=== PATIENT | male | born 1965 | race Caucasian/White ===

== ENCOUNTER 2018-02-14 14:12 | Emergency (ER) | payer MEDICAID, SELFPAY ==
--- NOTE | 2018-02-14 14:30 | ED.DCSUM_ITS ---
- ER Visit Summary Date of Service: 02/14/18 Chief Complaint: Depressed and suicidal History of Present Illness: The patient is a 52 M history of depression and prior kidney stones. Currently he is on no medications. He does see [facility] and I think at times a counseling center. Today he was talking to his counselor at [facility]. He told him he was more more depressed and was actually contemplating suicide which he has never done in the past. He has no prior attempts and he denies ever being admitted to a psychiatric facility. The counselor on the other end of the phone was concerned enough that he called the police and the patient was brought to the ER and pink slipped. Patient denies any attempt. Physical Examination: Well-appearing middle-age male. Sitting up in bed. He is tearful and depressed but does answer questions. He is not combative. Currently he is not violent or verbally abusive. H EENT exam unremarkable. Neck nontender no lymphadenopathy. Lungs clear to auscultation bilaterally. Heart regular rhythm no murmur. Abdomen he is morbidly obese but soft and nontender. He is moving all 4 extremities. He has 1+ pitting edema both lower extremities and chronic venous stasis ulcerations on his left lower leg. Both upper and lower extremities are neurovascularly intact. With normal motor strength. Dorsi and plantar flexion intact. Bilateral histopathology technician strength. Back nontender. Neurologically he is awake and alert. Test Results: ED mental health screening labs. Emergency Department Course and Treatment: Patient will be evaluated by counseling center. At this time I do have concern and he is truly suicidal and significantly depressed. I suspect that he will be admitted to a psychiatric facility. Treatment Plan: [] Disposition: After counseling center evaluation. Impression: Acute on chronic depression Subtle ideations This note was generated with [employer] dictation software. It may contain incorrect words, spelling, and punctuation that were not noted in review of the chart prior to signing ED Disposition - Plan for ED Patient: Chief Complaint: Suicidal Referrals: NOT,DEFINED [Primary Care Provider] -
[2018-02-14 14:42] VITALS: BP 153/80; PULSE 93; RESP 18; TEMP 36.8; O2SAT 99; BMI 47.8
[2018-02-14 15:04] LABS: Absolute Neutrophil Count 5.1 X10^3/uL (2.0-7.7); Basophil# 0.02 X10^3/uL; Basophil% 0.2 % (0-1); Eosinophil# 0.71 X10^3/uL; Eosinophils% 8.3 % (0-5); Hematocrit 42.6 % (40-54); Hemoglobin 14.4 g/dl (13.0-16.5); Lymphocyte % 22.2 % (19-41); Mean Corp Hgb Conc 33.8 g/gl (32-36); Mean Corpuscular Hgb 31.4 pg (27.0-32.0); Monocyte% 9.3 % (0-10); Neutrophil # 5.11 X10^3/uL (2.7-7.7); Neutrophil % 59.8 % (47-70); Platelet Count 246 K/mm3 (150-450); RBC Distribution Width CV 13.8 % (11.6-14.6); RBC Distribution Width SD 45.3 fl (35.1-43.9); Red Blood Count 4.58 M/mm3 (4.6-6.2); White Blood Count 8.6 K/mm3 (4.4-11.0)
[2018-02-14 15:10] LABS: Anion Gap 9 (5-15); BUN 12 mg/dL (7-18); BUN/Creat Ratio 11.9 RATIO (10-20); Calcium,Total 8.9 mg/dL (8.5-10.1); Chloride 110 mmol/L (98-107); Creatinine, Serum 1.01 mg/dL (0.70-1.30); EST Glomerular Filtration Rate 82 mL/min (>60); Est Glom Filt Rate - Afr Amer 99 mL/min (>60); Estimated Creatinine Clearance 92.84 ml/min; Glucose 99 mg/dL (74-106); Potassium 3.8 mmol/L (3.5-5.1); Sodium Level 143 mmol/L (136-145)
[2018-02-14 15:11] LABS: POSITIVE COUNT NO; POSITIVE DIFFERENTIAL NO; POSITIVE MORPHOLOGY NO
[2018-02-14 15:16] LABS: Amphetamine Urine VISTA NEGATIVE (<1000 ng/mL); Barbiturate Urine VISTA NEGATIVE (< 200 ng/mL); Benzodiazepine Urine VISTA NEGATIVE (< 200 ng/mL); Cocaine Urine VISTA NEGATIVE (< 300 ng/mL); Ecstacy Urine VISTA NEGATIVE (< 500 ng/mL); Methadone Urine VISTA NEGATIVE (< 300 ng/mL); PCP Urine VISTA NEGATIVE (< 25 ng/mL); THC Urine VISTA NEGATIVE (< 50 ng/mL); Vista UDS pH Range 5
--- NOTE | 2018-02-14 16:12 | NURSING ---
JUAN F, CRISIS, AWARE OF PATIENT
--- NOTE | 2018-02-14 17:58 | NURSING ---
CALLED CRISIS, SETH IS AWARE
[2018-02-14 19:04] VITALS: BP 118/56; PULSE 69; RESP 18; O2SAT 96
[2018-02-14 20:29] VITALS: RESP 20
[2018-02-14 22:37] VITALS: BP 126/65; PULSE 80; RESP 18; O2SAT 96
[2018-02-15] VITALS (12 sets, daily range): BP systolic 114–140; BP diastolic 57–60; PULSE 69–75; RESP 16–18; TEMP 36.7; O2SAT 95–98
--- NOTE | 2018-02-15 01:01 | ED.RN ---
patient denied at [facility], [facility] full, [facility] full, [facility] full, at this time patient will be in ER until placement can be found in the morning
== END 2018-02-15 12:36 ==
PROVIDERS: Emergency Provider Emergency Medicine
DX: F32.9 Major depressive disorder, single episode, unspecified (principal); R45.851 Suicidal ideations; I83.029 Varicose veins of left lower extremity with ulcer of unspecified site; L97.929 Non-pressure chronic ulcer of unspecified part of left lower leg with unspecified severity; Z87.442 Personal history of urinary calculi
CPT/HCPCS: 80048; 80307; 80320; 85025; 99285; G0480

== ENCOUNTER 2019-06-24 20:55 | Inpatient (IN) | payer MEDICAID, SELFPAY ==
[2019-06-24 20:56] VITALS: BP 116/65; PULSE 119; RESP 24; TEMP 36.9; O2SAT 98; BMI 43.3
--- NOTE | 2019-06-24 21:50 | EKG12_ITS ---
Test Reason : TACHYCARDIA Blood Pressure : / mmHG Vent. Rate : 127 BPM Atrial Rate : 127 BPM P-R Int : 186 ms QRS Dur : 086 ms QT Int : 314 ms P-R-T Axes : 030 009 033 degrees QTc Int : 456 ms Sinus tachycardia with Premature supraventricular complexes Nonspecific T wave abnormality Abnormal ECG Confirmed by YOLI GUZMAN, JACKIE ([id number]), newspaper or periodical editor FERNANDO JARAMILLO ([id number]) on 06/26/2019 2:14:28 PM Referred By: Blu Mayer Confirmed By:JACKIE KENT MD
--- NOTE | 2019-06-24 21:50 | RAD_ITS ---
STUDY: X-RAY CHEST REASON FOR EXAM: Male, 53 years old. COUGH TECHNIQUE: Single AP portable view of the chest. COMPARISON: None. FINDINGS: There are monitoring devices. The lungs are clear and expanded. There is no demonstrated pleural abnormality. Normal size heart. Normal mediastinum and amalia. Normal visualized pulmonary arteries. Normal visualized aortic arch and descending thoracic aorta. There are diffuse degenerative changes of the visualized thoracic spine. Normal visualized ribs, clavicles, and shoulders. There is no demonstrated abnormality of the visualized soft tissue structures of the upper abdomen. RAD/Chest 1 View (Portable) IMPRESSION: Degenerative changes, as described above. No demonstrated acute cardiopulmonary process. Electronically Signed: Giovanni Mcbride MD at 22:18 EST , Service support ,
--- NOTE | 2019-06-24 21:52 | ED.VIS.GEN ---
History of Present Illness Chief Complaint: Cellulitis Informant: Patient Onset: Days Context: Gradual Onset Narrative: Patient is a 53-year-old male with history of lymphedema and depression presenting from home after a fall out of chair with worsening weakness. Patient states he slipped out of his chair and on his buttocks. Patient could not get up and called his friend for help. EMS was then called. Patient also reports he has worsening redness and pain of his bilateral lower legs for the past few days to week. He denies any fever. Patient thinks he does have a history of cellulitis but he is a poor historian. Patient, as he is not been sleeping well. He denies any other complaints at this time. Past Medical History - Allergies and Home Meds Allergies/Adverse Reactions: Allergies No Known Allergies Allergy (Verified 06/24/19 20:55) Past Medical History: - - Depression, lymphedema Surgical History: appendectomy Lives: Alone Smoking Status: Never smoker - Family History Maternal Family History: Reports: Cancer - Lung Paternal Family History: Reports: Cancer - Lung Review of Systems General: Reports: Malaise. Denies: Chills, Fever, Sweats Eyes: Denies: Visual changes - bilaterally, Diplopia ENT: Denies: Rhinorrhea, Sore throat Cardiovascular: Denies: Chest pain, Palpitations Respiratory: Denies: Dyspnea, Cough, Dyspnea on exertion Gastrointestinal: Denies: Abdominal pain, Nausea, Vomiting, Diarrhea, Melena, Hematochezia Genitourinary: Denies: Dysuria, Hematuria, Frequency Musculoskeletal: Denies: Back pain, Extremity Pain Skin: Reports: Rash - Redness and swelling of bilateral lower legs. Denies: Wounds Neurological: Reports: Weakness - Generalized. Denies: Headache, Numbness Physical Exam Vital Signs/Narrative: Vital Signs Temp Pulse Resp BP Pulse Ox 06/24/19 20:56 98.4 F 119 H 24 H 116/65 98 Inital Vital Signs reviewed: Yes General: Well nourished, Well developed, Obese, No Acute Distress Head: Normocephalic, Atraumatic Eyes: Perrl, EOMI ENT: Moist mucous membranes, No rhinorrhea, TM's clear, - - Patient is dried blood on the outside of his nose with no obvious source. Neck: Supple, Nontender Cardiovascular: Regular rate, Regular rhythm, No murmurs Respiratory: No distress, CTA bilaterally, Chest nontender Abdomen: Soft, Nontender, Nondistended, Normal bowel sounds Back: Nontender, Normal Inspection Extremities: Tenderness, Edema, - - Diffuse tenderness of bilateral lower legs circumferentially with nonpitting edema to the knees. Negative for: Calf Tenderness Skin: Rash - Chronic skin changes of the lower extremities consistent with venous stasis however patient does have erythema, warmth and open sores on his bilateral legs, right is greater than the left Neurological: Alert, Oriented x3, Cranial nerves II-XII grossly intact, Normal Strength, Normal Sensation Psychological: Normal affect, Normal Mood, - - Poor eye contact during exam Diagnostic/Tx/Re-eval Chest X-Ray - ED: 1 View, Read by ED Physician, Read by Radiologist, No Acute Disease Clinical Impression(s) from Imaging Studies Chest X-Ray 06/24/19 21:50 IMPRESSION: Degenerative changes, as described above. No demonstrated acute cardiopulmonary process. Electronically Signed: Giovanni Mcbride MD at 22:18 EST , Service support , Laboratory Data 06/24/19 06/24/19 06/24/19 21:15 21:15 21:15 WBC 11.6 H RBC 4.06 L Hgb 11.5 L Hct 35.3 L MCV 86.9 MCH 28.3 MCHC 32.6 RDW Std Deviation 49.1 H RDW Coeff of Tye 15.7 H Plt Count 364 MPV 8.9 Immature Gran % (Auto) 1.000 H Neut % (Auto) 82.5 H Lymph % (Auto) 10.0 L Clinch % (Auto) 6.0 Eos % (Auto) 0.2 Baso % (Auto) 0.3 Absolute Neuts (auto) 9.5 H Absolute Lymphs (auto) 1.16 Nucleated RBC % 0 PT 18.1 H INR 1.5 APTT 32.9 Sodium 133 L Potassium 3.3 L Chloride 100 Carbon Dioxide 24.0 Anion Gap 9 BUN 14 Creatinine 1.43 H Estim Creat Clear Calc 68.66 Est GFR (MDRD) Af Amer 66 Est GFR (MDRD) Non-Af 55 L BUN/Creatinine Ratio 9.8 L Glucose 115 H Lactic Acid Calcium 7.9 L Total Bilirubin 0.70 AST 103 H ALT 42 Alkaline Phosphatase 72 Total Creatine Kinase 2370 H Total Protein 7.6 Albumin 2.1 L Globulin 5.5 H Albumin/Globulin Ratio 0.4 L 06/24/19 21:15 WBC RBC Hgb Hct MCV MCH MCHC RDW Std Deviation RDW Coeff of Tye Plt Count MPV Immature Gran % (Auto) Neut % (Auto) Lymph % (Auto) Clinch % (Auto) Eos % (Auto) Baso % (Auto) Absolute Neuts (auto) Absolute Lymphs (auto) Nucleated RBC % PT INR APTT Sodium Potassium Chloride Carbon Dioxide Anion Gap BUN Creatinine Estim Creat Clear Calc Est GFR (MDRD) Af Amer Est GFR (MDRD) Non-Af BUN/Creatinine Ratio Glucose Lactic Acid 3.2 H* Calcium Total Bilirubin AST ALT Alkaline Phosphatase Total Creatine Kinase Total Protein Albumin Globulin Albumin/Globulin Ratio - Rhythm Strip Rhythm Strip: Sinus Tach - 127 Rate: 127 Ectopy: None - EKG Initial EKG Interpretation: Sinus Tachycardia, - - Sinus tachycardia at a rate of 127 Normal TN interval Normal QRS QTc [address] segments Follow-up EKG Interpretation: Sinus Tachycardia, - - Sinus tachycardia with PVC Normal intervals Normal axis Normal ST segments Prior: Unchanged - Medical Decision Making Patient is evaluated for difficulty walking after he fell out of his chair. He was found to have changes on his legs concerning for cellulitis. Patient is tachycardic and tachypneic. He meets criteria for sepsis. I suspect skin infection as a source. Patient did state he was on the ground and could not get up so I did check a CPK. This is significantly elevated. Patient does not have a significant NANDA associated with it. He will require admission for IV fluids as well as IV antibiotics. Patient has a mildly elevated white blood cell count and other labs are relatively unremarkable. He is agreeable this plan for admission. In addition patient likely need PT OT evaluation as well as case management as he lives home alone and I question whether he can take care of himself. He is stable for the general medical floor at time of disposition. Patient is intermittently significantly tachycardic with a heart rate up to 145. He states this is associated with feeling nervous about being in the hospital. We did recheck an EKG which continues to show sinus tachycardia. ED Disposition - Plan for ED Patient: Disposition: Acute Care Hospital [facility] Diagnosis: Cellulitis of both lower extremities, Severe sepsis, Rhabdomyolysis
[2019-06-24 22:00] VITALS: BP 100/55; PULSE 127; RESP 48; TEMP 37.3; O2SAT 99
--- NOTE | 2019-06-24 22:01 | ED.RN ---
NO OLD EKGS IN MUSE
[2019-06-24 22:04] LABS: Absolute Lymphocyte Count 1.16 X10^3/uL (0.83-4.51); Absolute Neutrophil Count 9.5 X10^3/uL (2.0-7.7); Basophil# 0.04 X10^3/uL; Basophil% 0.3 % (0-1); Eosinophil# 0.02 X10^3/uL; Eosinophils% 0.2 % (0-5); Hematocrit 35.3 % (40-54); Hemoglobin 11.5 g/dL (13.0-16.5); Lymphocyte # 1.16 X10^3/ul (4.0); Mean Corp Hgb Conc 32.6 g/dL (32-36); Mean Corpuscular Hgb 28.3 pg (27.0-32.0); Mean Corpuscular Volume 86.9 fL (80-94); Mean Platelet Vol. 8.9 fl (6.2-12.0); Monocyte# 0.69 X10^3/uL; NRBC Flagged by Analyzer 0 % (0-5); Neutrophil # 9.53 X10^3/uL (2.7-7.7); Neutrophil % 82.5 % (47-70); Platelet Count 364 K/mm3 (150-450); RBC Distribution Width CV 15.7 % (11.6-14.6); RBC Distribution Width SD 49.1 fl (35.1-43.9); Red Blood Count 4.06 M/mm3 (4.6-6.2); White Blood Count 11.6 K/mm3 (4.4-11.0)
[2019-06-24] MEDS: 0.9% Normal Saline 1,000 ML 999 ML IV ×2 (22:04→22:57)
[2019-06-24 22:08] LABS: International Normalized Ratio 1.5; Prothrombin Time (Protime)PT. 18.1 SECONDS (11.7-14.9)
[2019-06-24 22:09] LABS: Partial Thromboplast Time 32.9 Seconds (24.1-36.2)
[2019-06-24 22:23] LABS: Lactic Acid 3.2 mmol/L (0.4-1.9)
[2019-06-24 22:32] LABS: ALB/GLOB Ratio 0.4 RATIO (0.9-2.4); AST(SGOT) 103 U/L (15-37); Alanine Aminotransfer ALT/SGPT 42 U/L (16-61); Albumin, Serum 2.1 g/dL (3.2-5.0); Alkaline Phosphatase 72 U/L (45-117); Anion Gap 9 (5-15); BUN 14 mg/dL (7-18); BUN/Creat Ratio 9.8 RATIO (10-20); CPK Total, Creatine Kinase 2370 U/L (39-308); Calcium,Total 7.9 mg/dL (8.5-10.1); Chloride 100 mmol/L (98-107); Creatinine, Serum 1.43 mg/dL (0.70-1.30); EST Glomerular Filtration Rate 55 mL/min (>60); Est Glom Filt Rate - Afr Amer 66 mL/min (>60); Estimated Creatinine Clearance 68.66 ml/min; Globulin 5.5 g/dL (2.2-4.2); Glucose 115 mg/dL (74-106); Potassium 3.3 mmol/L (3.5-5.1); Protein, Total 7.6 g/dL (6.4-8.2); Sodium Level 133 mmol/L (136-145)
--- NOTE | 2019-06-24 22:46 | HP.PCM_ITS ---
Problem List (1) Cellulitis of both lower extremities Status: Acute (2) Severe sepsis Status: Acute (3) Rhabdomyolysis Status: Acute History of Present Illness Date of Admission: 06/24/19 Chief Complaint: fall The patient is a 53 year old M with a significant history of morbid obesity; bilateral lymphedema; depression and anxiety who presented because he slid out of her chair and fell to the ground. He also reported out about a month ago he has been having cellulitis of bilateral legs and was advised by a friend to come to the hospital but he did not follow through with the advice until now. Emergency department patient had tachycardia; tachypnea and elevated lactic acid. His creatinine was elevated and his CPK was also elevated.. Past Medical History Medical History: Medical History (Last Updated 06/24/19 @ 23:48 by Blu Mayer MD) Morbid obesity E66.01 Allergies No Known Allergies Allergy (Verified 06/24/19 20:55) Home Medications: Ambulatory Orders Medication Instructions Recorded NK 02/14/18 Surgical History: tonsillectomy, - - Kidney stone surgery Lives: Alone Smoking Status: Never smoker Alcohol: None - *Family History Maternal History Items: Cancer - Lung Paternal History Items: Cancer - Lung Review of Systems Constitutional: Denies: Chills, Fever, Weight Change HEENT: Denies: Head Aches, Sinus Congestion, Sinus Drainage Cardiovascular: Denies: Chest Pain, Palpitations Respiratory: Denies: Cough, Shortness of breath at rest, Sputum production Gastrointestinal: Denies: Abdominal Pain, Nausea, Vomiting Genitourinary: Denies: Dysuria Musculoskeletal: Denies: Joint Pain, Joint Tenderness Skin: Reports: Skin Changes - To bilateral lower extremities, - Neurological: Denies: Numbness, Tingling, Focal weakness Psychiatric: Reports: Anxiety, Depression. Denies: Homicidal Ideations, Suicidal Ideations Hematologic/ Lymphatic: Denies: Easy Bruising, Easy Bleeding VTE Information - Inpt Only VTE Present on Admission: No VTE Mechan Device Prophylaxis: None VTE Pharm Prophylaxis ordered?: Yes Patient Problems: Active and Suspected Problems (Last Updated 06/24/19 @ 23:48 by Blu Mayer MD) Cellulitis of both lower extremities (Acute) Severe sepsis (Acute) Rhabdomyolysis (Acute) - Physical Exam Vitals/I&O's: Vital Signs Temp Pulse Resp BP Pulse Ox 99.1 F 127 H 48 H 100/55 L 99 06/24/19 22:00 06/24/19 22:00 06/24/19 22:00 06/24/19 22:00 06/24/19 22:00 Oxygen Delivery Method Room Air Weight: 153.1 kg Body Mass Index (BMI) 43.3 General: Alert, Oriented x3, Cooperative HEENT: Atraumatic, Normocephalic Neck: Supple, Trachea Midline Lungs: Clear to auscultation, Normal air movement, Tachypneic Cardiovascular: Regular rate, Normal S1, Normal S2, No murmurs, Tachycardic Abdomen: Bowel Sounds Present, Soft, Non Tender, Hypoactive Bowel Sounds Extremities: Capillary Refill Less than 3 Seconds, - - Duration of bilateral lower legs. Seepage through bilateral posterior thighs with some greenish discoloration of the skin. Foul-smelling odor of extremities with excoriation extending to bilateral buttocks. Skin: No rashes, No breakdown Musculoskeletal: No Tenderness to Palpation of Joints or Extremities Neurological: Cranial nerves II-XII grossly intact Psych/Mental Status: Flat Affect, Depressed, - - Cried Laboratory Results 06/24/19 21:15: WBC 11.6 H, RBC 4.06 L, Hgb 11.5 L, Hct 35.3 L, MCV 86.9, MCH 28.3, MCHC 32.6, RDW Std Deviation 49.1 H, RDW Coeff of Tye 15.7 H, Plt Count 364, MPV 8.9, Immature Gran % (Auto) 1.000 H, Neut % (Auto) 82.5 H, Lymph % (Auto) 10.0 L, [place] % (Auto) 6.0, Eos % (Auto) 0.2, Baso % (Auto) 0.3, Absolute Neuts (auto) 9.5 H, Absolute Lymphs (auto) 1.16, Nucleated RBC % 0 06/24/19 21:15: PT 18.1 H, INR 1.5, APTT 32.9 06/24/19 21:15: Sodium 133 L, Potassium 3.3 L, Chloride 100, Carbon Dioxide 24.0, Anion Gap 9, BUN 14, Creatinine 1.43 H, Estim Creat Clear Calc 68.66, Est GFR (MDRD) Af Amer 66, Est GFR (MDRD) Non-Af 55 L, BUN/Creatinine Ratio 9.8 L, Glucose 115 H, Calcium 7.9 L, Total Bilirubin 0.70, AST 103 H, ALT 42, Alkaline Phosphatase 72, Total Creatine Kinase 2370 H, Total Protein 7.6, Albumin 2.1 L, Globulin 5.5 H, Albumin/Globulin Ratio 0.4 L 06/24/19 21:15: Lactic Acid 3.2 H* Current Medications Sodium Chloride () 1,000 mls @ 999 mls/hr IV .Q1H1M ONE Stop: 06/24/19 22:50 Last Admin: 06/24/19 22:04 Dose: 999 mls/hr Documented by: Sodium Chloride () 1,000 mls @ 999 mls/hr IV .Q1H1M ONE Stop: 06/24/19 23:39 Vancomycin HCl 2,000 mg/ (Sodium Chloride) 540 mls @ 250 mls/hr IV X1 ONE; Protocol Stop: 06/25/19 00:49 Piperacillin Sod/Tazobactam Sod (Zosyn) 4.5 gm in 100 mls @ 200 mls/hr IV X1 ONE Stop: 06/24/19 23:09 Assessment/Plan All Active Problems (Last Updated 06/24/19 @ 23:48 by Blu Mayer MD) Cellulitis of both lower extremities (Acute) Severe sepsis (Acute) Rhabdomyolysis (Acute) The patient is a 53 year old M with a significant history of morbid obesity; bilateral lymphedema; depression and anxiety who presented because he slid out of her chair and fell to the ground; has bilateral leg redness; excoriation and seepage from his bilateral lower extremities especially from his posterior thighs; and with tachycardia; tachypnea; leukocytosis elevated CPK and elevated lactic acid consistent with severe sepsis secondary to cellulitis and probably myositis with rhabdomyolysis and NANDA. Severe sepsis secondary cellulitis and probable myositis Patient with heart rate as high as in the 140s. Respiratory rate more than 20. Lactic acid more than 2. Trend. Probable source of infection of soft tissues of lower extremities Was started on vancomycin and Zosyn in the emergency department. We will continue patient on vancomycin and cefazolin. Consult infectious disease Received NSS IV bolus in the emergency department. Continue on maintenance IV hydration especially for his rhabdomyolysis. Trend CBC and BMP. Follow blood culture. Rhabdomyolysis On presentation his CPK was 2370. Received IV bolus in emergency department. Continue patient on maintenance IV hydration. Trend CPK. NANDA On presentation his creatinine was 1.43. His creatinine on 02/14/2018 was 1.01. Likely secondary to CPK. IV fluid as above. Avoid nephrotoxins. Trend BMP. Hypokalemia His potassium is 3.3. Replace. Trend BMP. Hypocalcemia Calcium is Albumin is 2.1. Likely from low albumin. Intertrigo Nystatin powder Lymphedema and coccygeal pressure ulcer Wound care consult Calmoseptine cream ordered. DVT prophylaxis Subcutaneous Heparin Code Visit Inpatient E&M: 57727 Init Hosp L3
[2019-06-24 23:00] VITALS: BP 112/67; PULSE 140; RESP 26; TEMP 37.1; O2SAT 98
--- NOTE | 2019-06-24 23:01 | EKG12_ITS ---
Test Reason : REPEAT Blood Pressure : / mmHG Vent. Rate : 119 BPM Atrial Rate : 119 BPM P-R Int : 182 ms QRS Dur : 086 ms QT Int : 328 ms P-R-T Axes : 031 012 035 degrees QTc Int : 461 ms Sinus tachycardia with occasional Premature ventricular complexes Nonspecific T wave abnormality Abnormal ECG Confirmed by MARVIN GUZMAN, DUKE ([id number]), loan expeditor FERNANDO JARAMILLO ([id number]) on 06/25/2019 10:35:13 AM Referred By: Blu Mayer Confirmed By:DUKE WONG MD
[2019-06-24 23:38] VITALS: BMI 49.4
[2019-06-24 23:55] VITALS: BP 100/51; PULSE 112; RESP 20; TEMP 37.5; O2SAT 100
[2019-06-25] VITALS (13 sets, daily range): BP systolic 106–149; BP diastolic 62–83; PULSE 88–123; RESP 20; TEMP 36.6–36.9; O2SAT 94–100; BMI 49.4
[2019-06-25] MEDS: 0.9% Normal Saline 1,000 ML 150 ML IV (01:04)
[2019-06-25 01:06] LABS: Bedside Glucose 117 mg/dL (70-110)
--- NOTE | 2019-06-25 01:13 | PCM.RX.CS ---
Consult Pharmacy has been consulted to manage selected antiobiotic: Vancomycin Type of Consult: New start Suspected Infection: Sepsis Labs: Sodium 133 mmol/L (136-145) L 06/24/19 21:15 Potassium 3.3 mmol/L (3.5-5.1) L 06/24/19 21:15 Chloride 100 mmol/L (98-107) 06/24/19 21:15 Carbon Dioxide 24.0 mmol/L (21.0-32.0) 06/24/19 21:15 Anion Gap 9 (5-15) 06/24/19 21:15 BUN 14 mg/dL (7-18) 06/24/19 21:15 Creatinine 1.43 mg/dL (0.70-1.30) H 06/24/19 21:15 Est GFR (MDRD) Af Amer 66 mL/min (>60) 06/24/19 21:15 Est GFR (MDRD) Non-Af 55 mL/min (>60) L 06/24/19 21:15 BUN/Creatinine Ratio 9.8 RATIO (10-20) L 06/24/19 21:15 Glucose 115 mg/dL (74-106) H 06/24/19 21:15 Weight used for dosin kg Estimated Creatinine Clearance: 94 Goal Trough: 15-20 mcg/mL Pharmacy Plan for Drug Dosing: Pharmacy Service will continue to monitor and adjust dosing as required. Medications Vancomycin HCl 1,250 mg/ (Sodium Chloride) 275 mls @ 167 mls/hr IV Q8H AMBAR Discontinued Medications Vancomycin HCl 2,000 mg/ (Sodium Chloride) 540 mls @ 250 mls/hr IV X1 ONE; Protocol Stop: 06/25/19 00:49 Last Admin: 06/24/19 23:31 Dose: 250 mls/hr Documented by: Follow-Up Labs: Trough Vancomycin Labs to be done on [date and time ordered]: 06/25 @ 2300
[2019-06-25 02:00] LABS: Reflex Lactate? Y
[2019-06-25 02:27] LABS: Absolute Lymphocyte Count 1.36 X10^3/uL (0.83-4.51); Absolute Neutrophil Count 9.5 X10^3/uL (2.0-7.7); Basophil# 0.03 X10^3/uL; Basophil% 0.3 % (0-1); Eosinophil# 0.09 X10^3/uL; Eosinophils% 0.8 % (0-5); Hematocrit 32.7 % (40-54); Hemoglobin 10.5 g/dL (13.0-16.5); Lymphocyte # 1.36 X10^3/ul (4.0); Lymphocyte % 11.6 % (19-41); Mean Corp Hgb Conc 32.1 g/dL (32-36); Mean Corpuscular Hgb 28.2 pg (27.0-32.0); Mean Corpuscular Volume 87.9 fL (80-94); Mean Platelet Vol. 8.7 fl (6.2-12.0); Monocyte# 0.71 X10^3/uL; Monocyte% 6.1 % (0-10); NRBC Flagged by Analyzer 0 % (0-5); Neutrophil # 9.45 X10^3/uL (2.7-7.7); Neutrophil % 80.5 % (47-70); Platelet Count 299 K/mm3 (150-450); RBC Distribution Width SD 50.6 fl (35.1-43.9); Red Blood Count 3.72 M/mm3 (4.6-6.2); White Blood Count 11.7 K/mm3 (4.4-11.0)
[2019-06-25 02:50] LABS: Lactic Acid 1.9 mmol/L (0.4-1.9)
[2019-06-25 03:03] LABS: Anion Gap 9 (5-15); BUN 12 mg/dL (7-18); BUN/Creat Ratio 11.1 RATIO (10-20); CPK Total, Creatine Kinase 2109 U/L (39-308); Calcium,Total 7.2 mg/dL (8.5-10.1); Chloride 106 mmol/L (98-107); Creatinine, Serum 1.08 mg/dL (0.70-1.30); EST Glomerular Filtration Rate 76 mL/min (>60); Est Glom Filt Rate - Afr Amer 91 mL/min (>60); Estimated Creatinine Clearance 85.82 ml/min; Glucose 116 mg/dL (74-106); Potassium 3.1 mmol/L (3.5-5.1); Sodium Level 136 mmol/L (136-145)
[2019-06-25 05:02] LABS: Bacteria 0 SEEN /hpf (None Seen); Mucous, Urine 0 SEEN /hpf (<or=2+); Squamous Epithelial Cells - UA 0 SEEN /hpf (0-5); White Blood Cells 0 SEEN /hpf (0-5)
[2019-06-25 05:31] LABS: Color, Urine Yellow (Yellow); Glucose, Dipstick Normal (Normal); Ketone-Dipstick 5 mg/dl (Negative); Leukocyte Esterase-Dipstick Negative /ul (Negative); Nitrite-Dipstick Negative (Negative); Occult Blood-Urine 50 /ul (Negative); Protein-Dipstick 15 mg/dl (Negative); Specific Gravity, Urine 1.025 (1.002-1.030); Urine Bilirubin Dipstick Negative (Negative); Urine Clarity Sl. Cloudy (Clear); Urine Urobilinogen 1 mg/dl (Normal)
[2019-06-25 05:37] LABS: Red Blood Cells-Urine 0-5 SEEN /hpf (0-5)
[2019-06-25] MEDS: Cefazolin 2 GM in 0.9% Normal Saline 100 ML IV ×3 (06:21→21:36)
[2019-06-25] MEDS: Heparin Injection (Vial) 5,000 UNIT/ML VIAL 5000 UNIT SC ×3 (06:22→21:15)
[2019-06-25 07:05] LABS: Bedside Glucose 118 mg/dL (70-110)
[2019-06-25] MEDS: Nystatin Ointment 1 APPLIC TOPICAL ×2 (08:47→21:15)
[2019-06-25] MEDS: Menthol/Lanolin/Calamine/Znox 113 GM Tube 1 APPLIC TOPICAL ×2 (08:48→21:16)
--- NOTE | 2019-06-25 09:24 | NURSING ---
wound photo: right posterior lower leg
--- NOTE | 2019-06-25 09:26 | NURSING ---
wound photo: left posterior lower leg
--- NOTE | 2019-06-25 09:26 | NURSING ---
wound photo: bilateral posterior thighs and buttocks
--- NOTE | 2019-06-25 11:01 | CON.PCM_ITS ---
Reason for Consult: Bilateral lower extremity cellulitis Consulted by: Dr. Blu Mayer History of Present Illness: The patient is a 53 year old M [] This is a 53-year-old white male with a past medical history of morbid obesity who lives alone and apparently had a traumatic fall that occurred by his chair roughly a month ago. Patient was subsequently admitted earlier this week and was found to have rhabdomyolysis and acute renal injury. Patient denies any fevers or shaking chills does state a trauma to his buttocks with a fall and does have some chronic erythema of his lower extremities. Patient was placed on parenteral antibiotic therapy in the form of vancomycin plus Ancef. I did r eview the photographs taken by the human services care specialist during this admission. Patient denies any gastrointestinal distress. No cardiopulmonary symptoms. Patient has very limited mobility - Medical History Allergies/Adverse Reactions: Allergies No Known Allergies Allergy (Verified 06/24/19 20:55) Home Medications: Ambulatory Orders Medication Instructions Recorded NK 02/14/18 Vital Signs Temp Pulse Resp BP Pulse Ox 98.4 F 114 H 20 H 149/83 H 97 06/25/19 08:00 06/25/19 08:00 06/25/19 08:00 06/25/19 08:00 06/25/19 08:00 Oxygen Delivery Method Room Air Weight: 165.3 kg Body Mass Index (BMI) 49.4 Laboratory Tests Past 24 Hrs 06/24/19 06/24/19 06/24/19 21:15 21:15 21:15 WBC 11.6 H RBC 4.06 L Hgb 11.5 L Hct 35.3 L MCV 86.9 MCH 28.3 MCHC 32.6 RDW Std Deviation 49.1 H RDW Coeff of Tye 15.7 H Plt Count 364 MPV 8.9 Immature Gran % (Auto) 1.000 H Neut % (Auto) 82.5 H Lymph % (Auto) 10.0 L [place] % (Auto) 6.0 Eos % (Auto) 0.2 Baso % (Auto) 0.3 Absolute Neuts (auto) 9.5 H Absolute Lymphs (auto) 1.16 Nucleated RBC % 0 PT 18.1 H INR 1.5 APTT 32.9 Sodium 133 L Potassium 3.3 L Chloride 100 Carbon Dioxide 24.0 Anion Gap 9 BUN 14 Creatinine 1.43 H Estim Creat Clear Calc 68.66 Est GFR (MDRD) Af Amer 66 Est GFR (MDRD) Non-Af 55 L BUN/Creatinine Ratio 9.8 L Glucose 115 H Lactic Acid Calcium 7.9 L Total Bilirubin 0.70 AST 103 H ALT 42 Alkaline Phosphatase 72 Total Creatine Kinase 2370 H Total Protein 7.6 Albumin 2.1 L Globulin 5.5 H Albumin/Globulin Ratio 0.4 L Urine Color Urine Clarity Urine pH Ur Specific [place] Urine Protein Urine Glucose (UA) Urine Ketones Urine Occult Blood Urine Nitrite Urine Bilirubin Urine Urobilinogen Ur Leukocyte Esterase Urine RBC Urine WBC Ur Squamous Epith Cells Urine Bacteria Urine Mucus 06/24/19 06/25/19 06/25/19 21:15 02:15 02:15 WBC 11.7 H RBC 3.72 L Hgb 10.5 L Hct 32.7 L MCV 87.9 MCH 28.2 MCHC 32.1 RDW Std Deviation 50.6 H RDW Coeff of Tye 16.0 H Plt Count 299 MPV 8.7 Immature Gran % (Auto) 0.700 Neut % (Auto) 80.5 H Lymph % (Auto) 11.6 L [place] % (Auto) 6.1 Eos % (Auto) 0.8 Baso % (Auto) 0.3 Absolute Neuts (auto) 9.5 H Absolute Lymphs (auto) 1.36 Nucleated RBC % 0 PT INR APTT Sodium 136 Potassium 3.1 L Chloride 106 Carbon Dioxide 21.0 Anion Gap 9 BUN 12 Creatinine 1.08 Estim Creat Clear Calc 85.82 Est GFR (MDRD) Af Amer 91 Est GFR (MDRD) Non-Af 76 BUN/Creatinine Ratio 11.1 Glucose 116 H Lactic Acid 3.2 H* Calcium 7.2 L Total Bilirubin AST ALT Alkaline Phosphatase Total Creatine Kinase 2109 H Total Protein Albumin Globulin Albumin/Globulin Ratio Urine Color Urine Clarity Urine pH Ur Specific [place] Urine Protein Urine Glucose (UA) Urine Ketones Urine Occult Blood Urine Nitrite Urine Bilirubin Urine Urobilinogen Ur Leukocyte Esterase Urine RBC Urine WBC Ur Squamous Epith Cells Urine Bacteria Urine Mucus 06/25/19 06/25/19 02:15 04:49 WBC RBC Hgb Hct MCV MCH MCHC RDW Std Deviation RDW Coeff of Tye Plt Count MPV Immature Gran % (Auto) Neut % (Auto) Lymph % (Auto) [place] % (Auto) Eos % (Auto) Baso % (Auto) Absolute Neuts (auto) Absolute Lymphs (auto) Nucleated RBC % PT INR APTT Sodium Potassium Chloride Carbon Dioxide Anion Gap BUN Creatinine Estim Creat Clear Calc Est GFR (MDRD) Af Amer Est GFR (MDRD) Non-Af BUN/Creatinine Ratio Glucose Lactic Acid 1.9 Calcium Total Bilirubin AST ALT Alkaline Phosphatase Total Creatine Kinase Total Protein Albumin Globulin Albumin/Globulin Ratio Urine Color Yellow Urine Clarity Sl. Cloudy Urine pH 6.0 Ur Specific [place] 1.025 Urine Protein 15 H Urine Glucose (UA) Normal Urine Ketones 5 H Urine Occult Blood 50 H Urine Nitrite Negative Urine Bilirubin Negative Urine Urobilinogen 1 H Ur Leukocyte Esterase Negative Urine RBC 0-5 SEEN Urine WBC 0 SEEN Ur Squamous Epith Cells 0 SEEN Urine Bacteria 0 SEEN Urine Mucus 0 SEEN - Other Studies Radiology: [] Other Studies: [] Route of nutrition/ use of supplements: [] Nutritional Intake: [] IV Site: [] Beck Catheter: [] morbid obesity patient is alert does not appear toxic lungs are clear heart exam S1-S2 abdomen is obese no focal tenderness lower extremities are bandaged photographs reviewed of the skin in his buttocks area - Assessment/Plan Antibiotics: [] Assessment/Plan: [] Active and Suspected Problems (Last Updated 06/24/19 @ 23:48 by Blu Mayer MD) Cellulitis of both lower extremities (Acute) Severe sepsis (Acute) Rhabdomyolysis (Acute) We will treat with Ancef 2 g IV every 8 hours. We will hold off on parenteral vancomycin.
--- NOTE | 2019-06-25 11:01 | CASEMGMT ---
Social Work Assessment Physician updated this worker that it took 2-3 people to get pt out of bed and physician is recommending SNF. Referral Date: 06/25/2019 Date of Assessment: 06/25/2019 Reason for consult: SNF placement Informant: Personal Status: SW met with pt and introduced self and role at [facility]. Pt is alert and orientated x3. Pt states that he lives alone on a 5th floor apartment with 35 steps to get to apartment. Pt states that he was previously independent with ADLs but doesn't drive. Pt state that he either walks or takes [place] transit for transportation. Pt states that he has no PCP and no pharmacy. Pt also states that he has no family or friends but does have a good neighbor next door that assists when needed. Pt states that he doesn't have a job and he applied for disability and waiting to hear back from disability. Pt denied any DME in the home but states he is working on getting a lift chair. Mental Health: Pt states that he does have depression, denied currently taking any medications. Pt states that he was going to [facility] for counseling but states it has been a long time since he has went to an appointment. Pt states that last year when he was homeless he had suicidal thoughts but denied any current suicidal/homicidal thoughts/plans/ideations. Substance Abuse Hx: Pt denied. SW spoke with pt regarding returning home or going to SNF for short term rehabilitation. Pt states that he is going home at discharge. SW informed pt that physician had some concerns considering it took 2-3 people to get pt up and moving today. Pt states I don't think it is fair that people here see me one time and automatically say I need to go to SNF. Pt states that he is at [facility] to get better and that is what he is going to do. 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 Pt states I am 53 and I am not going to SNF. SW spoke with pt informing him that the plan can be to go home but SNF conversation may have to be discussed again in the event pt is still need 2-3 people to get up and moving. Pt became tearful. SW offered support to pt. SW asked pt if he feels he needs any DME in the home or HHC. Pt states that he would like a raised toilet seat and handrails by his toilet. SW updated pt that handrails are not paid for by insurance so he would need to purchase them himself and install him itself. Pt states understanding, states again that he would like a raised toilet seat. Pt denied the need for HHC. MEY and MINNA CM to continue to follow. If pt is still requiring 2-3 people to assist then pt would probbaly benefit from SNF but at this time pt is not agreeable to SNF and is adamant about returning home. Plan: AMAYA Flowers FISCAL MANAGER, DINING SERVICE INSPECTOR
[2019-06-25 13:36] LABS: Bedside Glucose 122 mg/dL (70-110)
[2019-06-25] MEDS: 0.9% Saline Lock 10 ML Syringe IV ×2 (13:53→21:41)
--- NOTE | 2019-06-25 18:17 | PCM.PROGNOTE ---
Patient Problems: Active and Suspected Problems (Last Updated 06/24/19 @ 23:48 by Blu Mayer MD) Cellulitis of both lower extremities (Acute) Severe sepsis (Acute) Rhabdomyolysis (Acute) Subjective: Was seen and examined today, I talked with wound care about his leg wounds today which are basically excoriated areas on the back of his legs most likely from not getting up out of bed and may be lying in urine. I talked to the patient today about going temporarily to a skilled care facility, at first he told me he knows he needs to do this but then later on in the day when psychologist social talked with him, patient flatly refused to go to a retirement. I went back into talk with him but he refused to make eye contact with me or talk to me other than to whisper a few words. It is obvious that the patient has a psych issue in addition to his self-neglect. - Physical Exam Vitals/I&O's: Vital Signs Temp Pulse Resp BP Pulse Ox 98.3 F 99 20 H 106/67 96 06/25/19 13:57 06/25/19 16:33 06/25/19 13:57 06/25/19 13:57 06/25/19 13:57 Oxygen Delivery Method Room Air Weight: 165.3 kg Body Mass Index (BMI) 49.4 Intake and Output for Last 24 Hours 06/23/19 06/24/19 06/25/19 23:59 23:59 23:59 Intake Total 2099 2955 / 2955 Output Total 450 / 450 Balance 2099 2505 / 2505 General: Alert, Oriented x3, Cooperative, No apparent distress, Well developed HEENT: Atraumatic, PERRLA, EOMI, Normocephalic Oral: Moist Mucosa Neck: Supple, Trachea Midline, Thyroid Normal Size and Texture Lungs: Clear to auscultation, Normal air movement, No rhonchi, No wheeze, No rales Cardiovascular: Regular rate, Regular Rhythm, Normal S1, Normal S2, No murmurs Abdomen: Bowel Sounds Present, Soft, Non Tender, Non-Distended, Obese Extremities: No clubbing, No cyanosis, Capillary Refill Less than 3 Seconds, - - There are excoriated skin areas over the patient's posterior leg areas bilaterally Skin: No rashes, Ulcer/ Wound - There is a breakdown of skin over the patient's posterior leg areas bilaterally Musculoskeletal: No Tenderness to Palpation of Joints or Extremities Neurological: Cranial nerves II-XII grossly intact, Neuro grossly intact, Sensory exam intact to light touch and pain Psych/Mental Status: Flat Affect, - - Patient appears withdrawn and does not make eye contact when I talk with him Laboratory Results 06/24/19 21:15: WBC 11.6 H, RBC 4.06 L, Hgb 11.5 L, Hct 35.3 L, MCV 86.9, MCH 28.3, MCHC 32.6, RDW Std Deviation 49.1 H, RDW Coeff of Tye 15.7 H, Plt Count 364, MPV 8.9, Immature Gran % (Auto) 1.000 H, Neut % (Auto) 82.5 H, Lymph % (Auto) 10.0 L, [place] % (Auto) 6.0, Eos % (Auto) 0.2, Baso % (Auto) 0.3, Absolute Neuts (auto) 9.5 H, Absolute Lymphs (auto) 1.16, Nucleated RBC % 0 06/24/19 21:15: PT 18.1 H, INR 1.5, APTT 32.9 06/24/19 21:15: Sodium 133 L, Potassium 3.3 L, Chloride 100, Carbon Dioxide 24.0, Anion Gap 9, BUN 14, Creatinine 1.43 H, Estim Creat Clear Calc 68.66, Est GFR (MDRD) Af Amer 66, Est GFR (MDRD) Non-Af 55 L, BUN/Creatinine Ratio 9.8 L, Glucose 115 H, Calcium 7.9 L, Total Bilirubin 0.70, AST 103 H, ALT 42, Alkaline Phosphatase 72, Total Creatine Kinase 2370 H, Total Protein 7.6, Albumin 2.1 L, Globulin 5.5 H, Albumin/Globulin Ratio 0.4 L 06/24/19 21:15: Lactic Acid 3.2 H* 06/25/19 00:56: POC Glucose 117 H 06/25/19 02:15: WBC 11.7 H, RBC 3.72 L, Hgb 10.5 L, Hct 32.7 L, MCV 87.9, MCH 28.2, MCHC 32.1, RDW Std Deviation 50.6 H, RDW Coeff of Tye 16.0 H, Plt Count 299, MPV 8.7, Immature Gran % (Auto) 0.700, Neut % (Auto) 80.5 H, Lymph % (Auto) 11.6 L, [place] % (Auto) 6.1, Eos % (Auto) 0.8, Baso % (Auto) 0.3, Absolute Neuts (auto) 9.5 H, Absolute Lymphs (auto) 1.36, Nucleated RBC % 0 06/25/19 02:15: Sodium 136, Potassium 3.1 L, Chloride 106, Carbon Dioxide 21.0, Anion Gap 9, BUN 12, Creatinine 1.08, Estim Creat Clear Calc 85.82, Est GFR (MDRD) Af Amer 91, Est GFR (MDRD) Non-Af 76, BUN/Creatinine Ratio 11.1, Glucose 116 H, Calcium 7.2 L, Total Creatine Kinase 2109 H 06/25/19 02:15: Lactic Acid 1.9 06/25/19 04:49: Urine Color Yellow, Urine Clarity Sl. Cloudy, Urine pH 6.0, Ur Specific [place] 1.025, Urine Protein 15 H, Urine Glucose (UA) Normal, Urine Ketones 5 H, Urine Occult Blood 50 H, Urine Nitrite Negative, Urine Bilirubin Negative, Urine Urobilinogen 1 H, Ur Leukocyte Esterase Negative, Urine RBC 0-5 SEEN, Urine WBC 0 SEEN, Ur Squamous Epith Cells 0 SEEN, Urine Bacteria 0 SEEN, Urine Mucus 0 SEEN 06/25/19 07:00: POC Glucose 118 H 06/25/19 12:39: POC Glucose 122 H Current Medications Acetaminophen (Tylenol) 650 mg PO Q6H PRN PRN PRN Reason: Pain Score 1-10/Temp > 100.7 F Calamine/Phenol (Calmoseptine Ointment) 1 applic TOPICAL BID [facility]; Protocol Last Admin: 06/25/19 08:48 Dose: 1 applic Documented by: Glucagon () 1 mg IM .X1 PRN PRN Reason: Hypoglycemia Heparin Sodium (Porcine) (Heparin Na) 5,000 unit SC Q8 [facility] Last Admin: 06/25/19 13:51 Dose: 5,000 unit Documented by: Cefazolin Sodium 2 gm/ Sodium (Chloride) 110 mls @ 150 mls/hr IV Q8 [facility] Last Infusion: 06/25/19 14:39 Dose: Infused Documented by: Dextrose (Dextrose 10%-Water) 250 mls @ 999 mls/hr IV .Q16M PRN; Protocol PRN Reason: HYPOGLYCEMIA Melatonin (Melatonin) 3 mg PO QHS PRN PRN PRN Reason: INSOMNIA Nutritional Formula (Lactose Free) (Ensure Enlive) 120 ml PO 4X/DAY [facility] Last Admin: 06/25/19 16:04 Dose: 120 ml Documented by: Nystatin (Mycostatin) 1 applic TOPICAL BID [facility]; Protocol Last Admin: 06/25/19 08:47 Dose: 1 applicatio Documented by: Ondansetron HCl (Zofran) 4 mg IV Q8H PRN PRN PRN Reason: NAUSEA/VOMITING Sodium Chloride () 10 - 40 ml IV UD PRN PRN Reason: SALINE FLUSH Last Admin: 06/25/19 13:53 Dose: 10 ml Documented by: Medical Necessity - Tobacco Use Smoking Status: Never smoker Assessment/Plan All Active Problems (Last Updated 06/24/19 @ 23:48 by Blu Mayer MD) Cellulitis of both lower extremities (Acute) Severe sepsis (Acute) Rhabdomyolysis (Acute) # 1 severe sepsis secondary to cellulitis of the legs-infectious diseases saw the patient today and recommended use of Ancef alone, patient's vancomycin was stopped #2 cellulitis of the legs-again patient is to remain on Ancef #3 morbid obesity #4 self-neglect #5 probable personality disorder #6 debility secondary to morbid obesity and psychiatric issues-patient will need placement in a long term facility, it is unknown whether the patient will agree to this. Code Visit Inpatient E&M: 41938 Subs Hosp L2
[2019-06-26 03:54] VITALS: BP 112/67; PULSE 97; RESP 20; TEMP 36.7; O2SAT 93
[2019-06-26 03:59] VITALS: PULSE 95
[2019-06-26] MEDS: Heparin Injection (Vial) 5,000 UNIT/ML VIAL 5000 UNIT SC ×3 (06:46→21:08)
[2019-06-26] MEDS: Cefazolin 2 GM in 0.9% Normal Saline 100 ML IV ×3 (06:46→21:07)
[2019-06-26] MEDS: Nystatin Ointment 1 APPLIC TOPICAL ×2 (06:46→21:07)
[2019-06-26] MEDS: Menthol/Lanolin/Calamine/Znox 113 GM Tube 1 APPLIC TOPICAL ×2 (06:46→21:07)
[2019-06-26 10:00] VITALS: PULSE 98
[2019-06-26 10:17] VITALS: BP 96/62; PULSE 92; RESP 18; TEMP 36.4; O2SAT 98
--- NOTE | 2019-06-26 10:41 | PCM.PN.ID ---
Patient Problems: Active and Suspected Problems (Last Updated 06/24/19 @ 23:48 by Blu Mayer MD) Cellulitis of both lower extremities (Acute) Severe sepsis (Acute) Rhabdomyolysis (Acute) Subjective: Patient is alert overall clinically stable tolerating Ancef well. No fevers. No significant gastrointestinal distress. Objective: Arnie obese man in no acute distress lungs are clear heart exam S1-S2 abdomen is obese but soft. Patient does have chronic skin changes in his lower extremities with erythema. - Physical Exam Vitals/I&O's: Vital Signs Temp Pulse Resp BP Pulse Ox 97.6 F L 92 18 96/62 98 06/26/19 10:17 06/26/19 10:17 06/26/19 10:17 06/26/19 10:17 06/26/19 10:17 Oxygen Delivery Method Room Air Weight: 165.3 kg Body Mass Index (BMI) 49.4 Intake and Output for Last 24 Hours 06/24/19 06/25/19 06/26/19 23:59 23:59 23:59 Intake Total 2099 / 2099 3065 / 3785 820 / 820 Output Total 450 / 850 675 / 675 Balance 2099 2615 / 2935 145 / 145 Microbiology Past 72 Hours 06/25/19 04:49 Urine, Clean Catch Urine Culture - Preliminary Culture exhibits no growth. Laboratory Results 06/25/19 12:39: POC Glucose 122 H Current Medications Acetaminophen (Tylenol) 650 mg PO Q6H PRN PRN PRN Reason: Pain Score 1-10/Temp > 100.7 F Calamine/Phenol (Calmoseptine Ointment) 1 applic TOPICAL BID [facility]; Protocol Last Admin: 06/26/19 06:46 Dose: 1 applic Documented by: Glucagon () 1 mg IM .X1 PRN PRN Reason: Hypoglycemia Heparin Sodium (Porcine) (Heparin Na) 5,000 unit SC Q8 [facility] Last Admin: 06/26/19 06:46 Dose: 5,000 unit Documented by: Cefazolin Sodium 2 gm/ Sodium (Chloride) 110 mls @ 150 mls/hr IV Q8 [facility] Last Admin: 06/26/19 06:46 Dose: 150 mls/hr Documented by: Dextrose (Dextrose 10%-Water) 250 mls @ 999 mls/hr IV .Q16M PRN; Protocol PRN Reason: HYPOGLYCEMIA Melatonin (Melatonin) 3 mg PO QHS PRN PRN PRN Reason: INSOMNIA Nutritional Formula (Lactose Free) (Ensure Enlive) 120 ml PO 4X/DAY [facility] Last Admin: 06/26/19 10:18 Dose: 120 ml Documented by: Nystatin (Mycostatin) 1 applic TOPICAL BID [facility]; Protocol Last Admin: 06/26/19 06:46 Dose: 1 applicatio Documented by: Ondansetron HCl (Zofran) 4 mg IV Q8H PRN PRN PRN Reason: NAUSEA/VOMITING Sodium Chloride () 10 - 40 ml IV UD PRN PRN Reason: SALINE FLUSH Last Admin: 06/25/19 21:41 Dose: 10 ml Documented by: Medical Necessity - Tobacco Use Smoking Status: Never smoker Route of nutrition/ use of supplements: [] Nutritional Intake: [] IV Site: [] Beck Catheter: [] - Assessment/Plan Lower extremity cellulitis would continue Ancef plus local wound care.
--- NOTE | 2019-06-26 11:36 | CASEMGMT ---
Social Work SW met with pt and introduced self and role. Pt presenting with flat affect and does not make eye contact with this SW however, pt very talkative and willing to answer SW questions and expand on feelings appropriately. PHQ9 completed with pt score of 7 although as pt answered that he did not have a particular issue such as sleeping, later in the conversation he would admit that sometimes he just wants to sleep all the time. SW encouraged pt to express feelings concerning currently life situation. Pt expressing frustration with himself that he is currently in this situation and then expresses strong desire to not give up and to prove people wrong and that he is worth something and wants to be able to function again. Pt admits that he is not on any anti depressant medication. SW encouraged pt to talk to his PCP regarding mental health. Pt stating he does not have a PCP but that his Content Assistant at [facility], Kimberly Yancey, was helping get set up with a PCP. Pt states he is currently utilizing services of [facility] as they are assisting with housing. Pt states he spoke with someone at [facility] previously about depression however he has not met with someone for a long time and doesn't want to bother them. SW provided a list of area counseling services and encouraged pt to consider seeing someone for depression. SW broached the topic of SNF placement as currently 2-3 assist to get out of bed. Pt stating that [facility] was working with [facility] to get pt a lift chair for home and then he would be fine. SW encouraged pt to consider rehab at a SNF as this would further increase his ability to return to former lifestyle which he was expressing desire to return to. Pt was agreeable to review list of SNFs in network with insurance. Pt stating that he wanted a private room with a TV and cable. List of area SNFs in network provided. [facility] is in network and does have private room with TV and [employer] and pt informed of this. Pt expressing excitement about this and asked SW to make referral. Referral made to Mohini at [facility] and harshil faxed. Will await determination. Plan: [facility], pending acceptance and insurance preauthorization MORENITA Lopez
--- NOTE | 2019-06-26 13:00 | CASEMGMT ---
Social Work Return call from Mohini at [facility] and they are able to accept pt and will start precert today. Pt notified and agreeable and understanding of need for precert. SW to follow for SNf placement. Plan: [facility], pending precert MORENITA Lopez
[2019-06-26] MEDS: Ondansetron 4 MG/2 ML Vial IV (15:12)
[2019-06-26 15:15] VITALS: BP 110/65; PULSE 95; RESP 18; TEMP 36.4; O2SAT 98
--- NOTE | 2019-06-26 15:34 | CASEMGMT ---
Social Work Note MEY placed a call to Mohini at [facility]. Mohini states she has to go through third constitution party for [place] and is not sure if she will receive pre-cert or not today. Mohini states if she receives pre-cert she will call [facility] number. MEY completed [facility] in [facility], placed green sheet and transport form on pt's chart in the event pre-cert is obtained. Plan: [facility] pending pre-cert Bibi Flowers CLAIMS ADJUSTER SUPERVISOR, OILSEED MEAT PRESSER
--- NOTE | 2019-06-26 18:55 | PN_ITS ---
Patient Problems: Active and Suspected Problems (Last Updated 06/24/19 @ 23:48 by Blu Mayer MD) Cellulitis of both lower extremities (Acute) Severe sepsis (Acute) Rhabdomyolysis (Acute) Subjective: Patient was seen and examined today, he is agreed to go to an extended care facility short-term for rehab services, patient actually appears excited about the prospect of going to a facility where he has a 43 inch TV. I looked at the patient's leg wounds today with the wound care nurse, they appear to be improving, patient is afebrile, we will have to get approval for the patient to go to a retirement facility from his insurance carrier. - Physical Exam Vitals/I&O's: Vital Signs Temp Pulse Resp BP Pulse Ox 97.6 F L 95 18 110/65 98 06/26/19 15:15 06/26/19 15:15 06/26/19 15:15 06/26/19 15:15 06/26/19 15:15 Oxygen Delivery Method Room Air Weight: 165.3 kg Body Mass Index (BMI) 49.4 Intake and Output for Last 24 Hours 06/24/19 06/25/19 06/26/19 23:59 23:59 23:59 Intake Total 2099 3065 / 3785 1840 / 1840 Output Total 450 / 850 1575 / 1575 Balance 2099 2615 / 2935 265 / 265 General: Alert, Oriented x3, Cooperative, No apparent distress, Well developed, Well nourished HEENT: Atraumatic, PERRLA, EOMI, Normocephalic Oral: Moist Mucosa Neck: Supple, Trachea Midline, Thyroid Normal Size and Texture Lungs: Clear to auscultation, Normal air movement, No rhonchi, No wheeze, No rales Cardiovascular: Regular rate, Regular Rhythm, Normal S1, Normal S2, No murmurs, PMI Normal, No rub noted Abdomen: Bowel Sounds Present, Soft, Non Tender, Non-Distended, No hernias noted Extremities: No clubbing, No cyanosis, Capillary Refill Less than 3 Seconds, Edema - Generalized lower leg edema is noted bilaterally Skin: No rashes, Excoriated - Excoriation of the skin on the back the patient's legs is noted bilaterally Neurological: Cranial nerves II-XII grossly intact, Neuro grossly intact, Sensory exam intact to light touch and pain Psych/Mental Status: Normal Affect, Appropriate, Alert and oriented to time, place, person, mood and affect Microbiology Past 72 Hours 06/25/19 04:49 Urine, Clean Catch Urine Culture - Preliminary Culture exhibits no growth. Current Medications Acetaminophen (Tylenol) 650 mg PO Q6H PRN PRN PRN Reason: Pain Score 1-10/Temp > 100.7 F Calamine/Phenol (Calmoseptine Ointment) 1 applic TOPICAL BID [facility]; Protocol Last Admin: 06/26/19 06:46 Dose: 1 applic Documented by: Glucagon () 1 mg IM .X1 PRN PRN Reason: Hypoglycemia Heparin Sodium (Porcine) (Heparin Na) 5,000 unit SC Q8 [facility] Last Admin: 06/26/19 15:13 Dose: 5,000 unit Documented by: Cefazolin Sodium 2 gm/ Sodium (Chloride) 110 mls @ 150 mls/hr IV Q8 [facility] Last Infusion: 06/26/19 16:04 Dose: Infused Documented by: Dextrose (Dextrose 10%-Water) 250 mls @ 999 mls/hr IV .Q16M PRN; Protocol PRN Reason: HYPOGLYCEMIA Melatonin (Melatonin) 3 mg PO QHS PRN PRN PRN Reason: INSOMNIA Nutritional Formula (Lactose Free) (Ensure Enlive) 120 ml PO 4X/DAY [facility] Last Admin: 06/26/19 17:35 Dose: Not Given Documented by: Nystatin (Mycostatin) 1 applic TOPICAL BID [facility]; Protocol Last Admin: 06/26/19 06:46 Dose: 1 applicatio Documented by: Ondansetron HCl (Zofran) 4 mg IV Q8H PRN PRN PRN Reason: NAUSEA/VOMITING Last Admin: 06/26/19 15:12 Dose: 4 mg Documented by: Sodium Chloride () 10 - 40 ml IV UD PRN PRN Reason: SALINE FLUSH Last Admin: 06/25/19 21:41 Dose: 10 ml Documented by: Medical Necessity - Tobacco Use Smoking Status: Never smoker Assessment/Plan All Active Problems (Last Updated 06/24/19 @ 23:48 by Blu Mayer MD) Cellulitis of both lower extremities (Acute) Severe sepsis (Acute) Rhabdomyolysis (Acute) # 1 severe sepsis secondary to cellulitis of the legs-continue Ancef #2 cellulitis of the legs-again patient is to remain on Ancef #3 morbid obesity #4 self-neglect #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
[2019-06-26 21:00] VITALS: BP 104/63; PULSE 83; RESP 18; TEMP 36.9; O2SAT 97
[2019-06-26] MEDS: 0.9% Saline Lock 10 ML Syringe IV ×2 (21:07→21:14)
[2019-06-27 02:53] VITALS: BP 101/61; PULSE 95; RESP 18; TEMP 36.8; O2SAT 96
[2019-06-27] MEDS: Heparin Injection (Vial) 5,000 UNIT/ML VIAL 5000 UNIT SC ×3 (05:30→22:44)
[2019-06-27] MEDS: Cefazolin 2 GM in 0.9% Normal Saline 100 ML IV ×3 (05:31→22:44)
[2019-06-27] MEDS: 0.9% Saline Lock 10 ML Syringe IV ×3 (05:33→15:26)
[2019-06-27] MEDS: Menthol/Lanolin/Calamine/Znox 113 GM Tube 1 APPLIC TOPICAL ×3 (05:57→22:44)
[2019-06-27 08:16] VITALS: O2SAT 95
[2019-06-27 08:19] VITALS: O2SAT 95
[2019-06-27] MEDS: Nystatin Ointment 1 APPLIC TOPICAL ×2 (09:57→22:45)
[2019-06-27 10:00] VITALS: BP 106/66; PULSE 94; RESP 18; TEMP 36.9; O2SAT 98
[2019-06-27 16:27] VITALS: BP 100/62; PULSE 94; RESP 18; TEMP 36.8; O2SAT 97
--- NOTE | 2019-06-27 17:25 | PN_ITS ---
Patient Problems: Active and Suspected Problems (Last Updated 06/24/19 @ 23:48 by Blu Mayer MD) Cellulitis of both lower extremities (Acute) Severe sepsis (Acute) Rhabdomyolysis (Acute) Subjective: Patient was seen and examined today, he does not appear to be in any distress, he has an upbeat mood today. Patient is afebrile. We are currently awaiting approval for transfer to a custodial facility-this will probably not come before Saturday or Saturday of this coming week. - Physical Exam Vitals/I&O's: Vital Signs Temp Pulse Resp BP Pulse Ox 98.2 F 94 18 100/62 97 06/27/19 16:27 06/27/19 16:27 06/27/19 16:27 06/27/19 16:27 06/27/19 16:27 Oxygen Delivery Method Room Air Weight: 165.3 kg Body Mass Index (BMI) 49.4 Intake and Output for Last 24 Hours 06/25/19 06/26/19 06/27/19 23:59 23:59 23:59 Intake Total 3065 / 3785 1950 / 1950 1220 / 1220 Output Total 450 / 850 1575 / 1975 1200 / 1200 Balance 2615 / 2935 375 / -25 General: Alert, Oriented x3, Cooperative, No apparent distress, Well developed HEENT: Atraumatic, PERRLA, EOMI, Normocephalic Oral: Moist Mucosa Neck: Supple, Trachea Midline, Thyroid Normal Size and Texture Lungs: Clear to auscultation, Normal air movement, No rhonchi, No wheeze, No rales Cardiovascular: Regular rate, Regular Rhythm, Normal S1, Normal S2, No murmurs, PMI Normal, No rub noted, No Gallop Abdomen: Bowel Sounds Present, Soft, Non Tender, Non-Distended, Obese, No hernias noted Extremities: No clubbing, No cyanosis, No edema, Capillary Refill Less than 3 Seconds Skin: No rashes, Excoriated - There are excoriated areas noted over the posterior aspects of the patient's legs bilaterally Musculoskeletal: No Tenderness to Palpation of Joints or Extremities Neurological: Cranial nerves II-XII grossly intact, Neuro grossly intact, S ensory exam intact to light touch and pain, Coordination normal Psych/Mental Status: Normal Affect, Appropriate, Alert and oriented to time, place, person, mood and affect Microbiology Past 72 Hours 06/24/19 22:05 Blood Culture (Wb) - Left Wrist Blood Culture - Preliminary No growth in 48 hours. 06/24/19 21:15 Blood Culture (Wb) - Anticubital Right Blood Culture - Preliminary No growth in 48 hours. 06/25/19 04:49 Urine, Clean Catch Urine Culture - Final Culture exhibits no growth. Current Medications Acetaminophen (Tylenol) 650 mg PO Q6H PRN PRN PRN Reason: Pain Score 1-10/Temp > 100.7 F Calamine/Phenol (Calmoseptine Ointment) 1 applic TOPICAL BID [facility]; Protocol Last Admin: 06/27/19 09:56 Dose: 1 applic Documented by: Glucagon () 1 mg IM .X1 PRN PRN Reason: Hypoglycemia Heparin Sodium (Porcine) (Heparin Na) 5,000 unit SC Q8 [facility] Last Admin: 06/27/19 15:28 Dose: 5,000 unit Documented by: Cefazolin Sodium 2 gm/ Sodium (Chloride) 110 mls @ 150 mls/hr IV Q8 [facility] Last Infusion: 06/27/19 16:28 Dose: Infused Documented by: Dextrose (Dextrose 10%-Water) 250 mls @ 999 mls/hr IV .Q16M PRN; Protocol PRN Reason: HYPOGLYCEMIA Melatonin (Melatonin) 3 mg PO QHS PRN PRN PRN Reason: INSOMNIA Nutritional Formula (Lactose Free) (Ensure Enlive) 120 ml PO 4X/DAY [facility] Last Admin: 06/27/19 15:27 Dose: 120 ml Documented by: Nystatin (Mycostatin) 1 applic TOPICAL BID [facility]; Protocol Last Admin: 06/27/19 09:57 Dose: 1 applicatio Documented by: Ondansetron HCl (Zofran) 4 mg IV Q8H PRN PRN PRN Reason: NAUSEA/VOMITING Last Admin: 06/26/19 15:12 Dose: 4 mg Documented by: Sodium Chloride () 10 - 40 ml IV UD PRN PRN Reason: SALINE FLUSH Last Admin: 06/27/19 15:26 Dose: 10 ml Documented by: Medical Necessity - Tobacco Use Smoking Status: Never smoker Assessment/Plan All Active Problems (Last Updated 06/24/19 @ 23:48 by Blu Mayer MD) Cellulitis of both lower extremities (Acute) Severe sepsis (Acute) Rhabdomyolysis (Acute) # 1 severe sepsis secondary to cellulitis of the legs-continue Ancef #2 cellulitis of the legs-again patient is to remain on Ancef #3 morbid obesity #4 self-neglect #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
[2019-06-27 22:28] VITALS: BP 114/67; PULSE 55; RESP 16; TEMP 37.7; O2SAT 94
[2019-06-28 04:18] VITALS: BP 107/66; PULSE 113; RESP 16; TEMP 36.8; O2SAT 95
[2019-06-28] MEDS: Cefazolin 2 GM in 0.9% Normal Saline 100 ML IV (05:44)
[2019-06-28] MEDS: Heparin Injection (Vial) 5,000 UNIT/ML VIAL 5000 UNIT SC ×3 (05:45→22:07)
[2019-06-28 07:39] VITALS: O2SAT 94
[2019-06-28] MEDS: Nystatin Ointment 1 APPLIC TOPICAL ×2 (09:54→22:10)
[2019-06-28] MEDS: Menthol/Lanolin/Calamine/Znox 113 GM Tube 1 APPLIC TOPICAL ×2 (09:54→22:09)
[2019-06-28 09:56] VITALS: BP 115/52; PULSE 91; RESP 18; TEMP 37; O2SAT 97
--- NOTE | 2019-06-28 11:45 | PCM.PROGNOTE ---
Patient Problems: Active and Suspected Problems (Last Updated 06/24/19 @ 23:48 by Blu Mayer MD) Cellulitis of both lower extremities (Acute) Severe sepsis (Acute) Rhabdomyolysis (Acute) Subjective: Patient was seen and examined today, he has no complaints of any leg pains today, he has no complaints of any chest pain or shortness of breath. Objective: General: Alert, Oriented x3, Cooperative, No apparent distress, Well developed HEENT: Atraumatic, PERRLA, EOMI, Normocephalic Oral: Moist Mucosa Neck: Supple, Trachea Midline, Thyroid Normal Size and Texture Lungs: Clear to auscultation, Normal air movement, No rhonchi, No wheeze, No rales Cardiovascular: Regular rate, Regular Rhythm, Normal S1, Normal S2, No murmurs, PMI Normal, No rub noted, No Gallop Abdomen: Bowel Sounds Present, Soft, Non Tender, Non-Distended, Obese, No hernias noted Extremities: No clubbing, No cyanosis, No edema, Capillary Refill Less than 3 Seconds Skin: No rashes, Excoriated - There are excoriated areas noted over the posterior aspects of the patient's legs bilaterally Musculoskeletal: No Tenderness to Palpation of Joints or Extremities Neurological: Cranial nerves II-XII grossly intact, Neuro grossly intact, Sensory exam intact to light touch and pain, Coordination normal Psych/Mental Status: Normal Affect, Appropriate, Alert and oriented to time, place, person, mood and affect - Physical Exam Vitals/I&O's: Vital Signs Temp Pulse Resp BP Pulse Ox 98.6 F 91 18 115/52 L 97 06/28/19 09:56 06/28/19 09:56 06/28/19 09:56 06/28/19 09:56 06/28/19 09:56 Oxygen Delivery Method Room Air Weight: 165.3 kg Body Mass Index (BMI) 49.4 Intake and Output for Last 24 Hours 06/26/19 06/27/19 06/28/19 23:59 23:59 23:59 Intake Total 1949 / 1949 2129 / 2130 610 / 610 Output Total 1574 1600 / 1600 450 / 450 Balance 375 / -25 530 / 530 160 / 160 Microbiology Past 72 Hours 06/24/19 22:05 Blood Culture (Wb) - Left Wrist Blood Culture - Preliminary No growth in 48 hours. 06/24/19 21:15 Blood Culture (Wb) - Anticubital Right Blood Culture - Preliminary No growth in 48 hours. 06/25/19 04:49 Urine, Clean Catch Urine Culture - Final Culture exhibits no growth. Current Medications Acetaminophen (Tylenol) 650 mg PO Q6H PRN PRN PRN Reason: Pain Score 1-10/Temp > 100.7 F Calamine/Phenol (Calmoseptine Ointment) 1 applic TOPICAL BID [facility]; Protocol Last Admin: 06/28/19 09:54 Dose: 1 applic Documented by: Glucagon () 1 mg IM .X1 PRN PRN Reason: Hypoglycemia Heparin Sodium (Porcine) (Heparin Na) 5,000 unit SC Q8 [facility] Last Admin: 06/28/19 05:45 Dose: 5,000 unit Documented by: Cefazolin Sodium 2 gm/ Sodium (Chloride) 110 mls @ 150 mls/hr IV Q8 [facility] Last Infusion: 06/28/19 06:28 Dose: Infused Documented by: Dextrose (Dextrose 10%-Water) 250 mls @ 999 mls/hr IV .Q16M PRN; Protocol PRN Reason: HYPOGLYCEMIA Melatonin (Melatonin) 3 mg PO QHS PRN PRN PRN Reason: INSOMNIA Nutritional Formula (Lactose Free) (Ensure Enlive) 120 ml PO 4X/DAY [facility] Last Admin: 06/28/19 09:55 Dose: Not Given Documented by: Nystatin (Mycostatin) 1 applic TOPICAL BID [facility]; Protocol Last Admin: 06/28/19 09:54 Dose: 1 applicatio Documented by: Ondansetron HCl (Zofran) 4 mg IV Q8H PRN PRN PRN Reason: NAUSEA/VOMITING Last Admin: 06/26/19 15:12 Dose: 4 mg Documented by: Sodium Chloride () 10 - 40 ml IV UD PRN PRN Reason: SALINE FLUSH Last Admin: 06/27/19 15:26 Dose: 10 ml Documented by: Medical Necessity - Tobacco Use Smoking Status: Never smoker Assessment/Plan All Active Problems (Last Updated 06/24/19 @ 23:48 by Blu Mayer MD) Cellulitis of both lower extremities (Acute) Severe sepsis (Acute) Rhabdomyolysis (Acute) # 1 severe sepsis secondary to cellulitis of the legs-patient has remained afebrile, I have decided to change the patient to oral Duricef today. 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
[2019-06-28 14:26] VITALS: BP 113/58; PULSE 90; RESP 16; TEMP 36.7; O2SAT 95
[2019-06-28 22:05] VITALS: BP 114/62; PULSE 89; RESP 20; TEMP 37.2; O2SAT 94
[2019-06-28] MEDS: Cefadroxil 500 MG CAPSULE 1000 MG PO (22:17)
[2019-06-29 03:43] VITALS: BP 134/66; PULSE 83; RESP 20; TEMP 36.9; O2SAT 92
[2019-06-29] MEDS: Heparin Injection (Vial) 5,000 UNIT/ML VIAL 5000 UNIT SC ×2 (06:05→13:50)
[2019-06-29 07:36] VITALS: BP 110/56; PULSE 95; RESP 22; TEMP 37; O2SAT 91
[2019-06-29] MEDS: Acetaminophen 325 MG Tablet 650 MG PO (07:53)
--- NOTE | 2019-06-29 09:56 | CASEMGMT ---
Addendum entered by Bibi Flowers 06/29/19 11:21: MEY faxed completed discharge paperwork to [facility] including transfer to extended care facility, signed medication list and any scripts. Original in SNF folder and copy on pt's chart. MEY had completed convalescent [facility] in [facility] on Saturday, original in SNF folder and copy on pt's chart. MEY spoke with RN who states pt will need transported via cot. MEY placed a call to [facility] and arranged transportation via bariatric cot for 4:30pm. Transportation form completed and placed on SNF folder and copy on pt's chart. MEY updated pt on approval for SNF, discharge today and transportation time. Pt states understanding. MEY placed a call to Mohini at [facility] and left her a message updating her on discharge time. RN updated on discharge time. Plan: [facility] skilled today with [facility] transporting via bariatric cot at 4:30pm MORENITA Morales Original Note: Social Work Note MEY received message from Mohini at [facility] stating pre-cert has been obtained. MEY updated physician who states pt is medically cleared for discharge. Plan: [facility] today skilled [facility] Morales
[2019-06-29] MEDS: Menthol/Lanolin/Calamine/Znox 113 GM Tube 1 APPLIC TOPICAL (10:15)
[2019-06-29] MEDS: Nystatin Ointment 1 APPLIC TOPICAL (10:16)
[2019-06-29] MEDS: Cefadroxil 500 MG CAPSULE 1000 MG PO (10:16)
--- NOTE | 2019-06-29 10:36 | PCM.TXEXTCAR ---
- Diet 06/25/19 00:39 Diet: Regular Diet Food consistency:: Regular Liquid Consistency:: Regular/Thin - Routine Orders/Code Status Enema Frequency: Daily PRN Suppository Type: Dulcolax 10mg O2 Frequency: PRN Keep PO Greater than or Equal to (%): 90 Code Status: Full Code - Wound(s) b/l legs Wound Type: cellulitis RLE Wound Type: blisters LLE Wound Type: ulcer right buttox Wound Type: IAD left buttox Wound Type: IAD right elbow Wound Type: ulcer bilat posterior legs Wound Type: dark pantoja non blanchable areas to back of bilat calf bilateral posterior thighs Wound Type: incontinence associated open areas Dressing Change: Adaptic left posterior lower leg Wound Type: Stasis Ulcer Dressing Change: Adaptic right posterior lower leg Wound Type: Stasis Ulcer Dressing Change: Adaptic - Therapies Weight Bearing: Weight bearing as tolerated Physical Therapy: Eval and Treat Occupational Therapy: Eval and Treat - Allergies/Procedures Done in Hospital Allergies/Adverse Reactions: Allergies No Known Allergies Allergy (Verified 06/24/19 20:55) Procedures: None - Type of Care/Length of Stay Estimated LOS: Convalescent Care Less Than 30 days Type of Care Needed: Skilled Rehab Potential: Fair Prognosis: Fair - Additional Orders/Day of Discharge Day of Discharge: 06/29/19 - Dietary and Speech Recommendations Dietitian Recommendations/Changes: Recommend 1 packet Mitchel BID to assist w/ wound healing. May benefit from 2200 calorie controlled diet if PO intake at meals improves; otherwise continue regular diet. Will continue Ensure Enlive 120 mL 4x/day until adequate PO intake at meals is established. - Follow Up Care Primary Care Physician: Care Physician,No Primary [Primary Care Provider] - Please Follow Up With: Jules Atkins MD When: one week; call office for an appointment
--- NOTE | 2019-06-29 10:43 | DS.PCM_ITS ---
Discharge Date and Diagnosis - Problem List Patient Problems: Active and Suspected Problems (Last Updated 06/24/19 @ 23:48 by Blu Mayer MD) Cellulitis of both lower extremities (Acute) Severe sepsis (Acute) Rhabdomyolysis (Acute) Date of Admission: 06/24/19 Date of Discharge: 06/29/19 - Primary Discharge Diagnosis Active and Suspected Problems (Last Updated 06/24/19 @ 23:48 by Blu Mayer MD) Cellulitis of both lower extremities (Acute) Severe sepsis (Acute) Rhabdomyolysis (Acute) Hospital Course and Treatment Imaging Results: Diagnostic Data Chest X-Ray 06/24/19 21:50 IMPRESSION: Degenerative changes, as described above. No demonstrated acute cardiopulmonary process. Electronically Signed: Giovanni Mcbride MD at 22:18 EST , Service support , Consultations 06/25/19 00:39 Consult: Onc/Wound/toolmaker grade three Routine Comment: Reason for Consult:: Bilateral lymphedema of lower extremities and seepage Infectious disease- Dr Monk Operations: None Procedures: None Summary of Care Provided: The patient is a 53 year old M with a past medical history as listed. He was admitted through the ED on 06/24/2019 with a complaint of weakness. He slid out of his chair and fell to the ground. He also complained of swelling and cellulitis of his LEs bilaterallya nd was adviced to come to the hopsital, but didnt do so until he presented. On admission, he was found to have tachycardia, tachypnea and elevated lactic acid, with elevated CPK. He was admitted and managed for sepsis due to cellulitis, NANDA and rhabdomyolysis. CPK was 2370. He was astarted on IVF for hydration and started on IV antibiotics- vancomycin and cefazolin. Infectious diseases was consulted. Antibiotics were switched to Oral Duricef eventually. Blood cultures were negative after 48 hours. He remained stable. NANDA resolved. However he was skilled to go to a rehab facility for further rehab. He was [facility] to his [facility] on 06/29/2019 with a prescription for p.o. Duricef 1000mg twice daily for 5 days. He is to follow-up with his primary care doctor. Patient seen and examined prior to discharge. He had no complaints and felt well. Review of systems otherwise negative. Labs and vitals reviewed. Home medication reviewed and reconciled. o/e: Vital Signs Height 6 ft 0.05 in Weight: 364 lb 6.786 oz Weight in Pounds 364.4 lbs Pulse Ox 93 Temperature 97.7 F Pulse Rate 79 Respiratory Rate 18 Blood Pressure 126/65 Blood Pressure Position Semi-Fowlers [] General: Alert, Oriented x3, Cooperative, No apparent distress, Well developed HEENT: Atraumatic, PERRLA, EOMI, Normocephalic Oral: Moist Mucosa Neck: Supple, Trachea Midline, Thyroid Normal Size and Texture Lungs: Clear to auscultation, Normal air movement, No rhonchi, No wheeze, No rales Cardiovascular: Regular rate, Regular Rhythm, Normal S1, Normal S2, No murmurs, PMI Normal, No rub noted, No Gallop Abdomen: Bowel Sounds Present, Soft, Non Tender, Non-Distended, Obese, No hernias noted Extremities: No clubbing, No cyanosis, No edema, Capillary Refill Less than 3 Seconds Skin: No rashes, Excoriated - both LEs wrapped in LISA bandage Musculoskeletal: No Tenderness to Palpation of Joints or Extremities Neurological: Cranial nerves II-XII grossly intact, Neuro grossly intact, Sensory exam intact to light touch and pain, Psych/Mental Status: Normal Affect, Appropriate, Alert and oriented to time, place, person, mood and affect Plan is for discharge to [facility] today. He is to follow-up with wound care as well as his PCP. Patient Problems: Active and Suspected Problems (Last Updated 06/24/19 @ 23:48 by Blu Mayer MD) Cellulitis of both lower extremities (Acute) Severe sepsis (Acute) Rhabdomyolysis (Acute) - Physical Exam Vitals/I&O's: Vital Signs Temp Pulse Resp BP Pulse Ox 98.6 F 95 22 H 110/56 L 91 06/29/19 07:36 06/29/19 07:36 06/29/19 07:36 06/29/19 07:36 06/29/19 07:36 Oxygen Delivery Method Room Air Weight: 364 lb 6.786 oz Body Mass Index (BMI) 49.4 Intake and Output for Last 24 Hours 06/27/19 06/28/19 06/29/19 23:59 23:59 23:59 Intake Total 2130 / 2130 2410 / 2410 300 / 300 Output Total 1600 / 1600 2350 / 2350 750 / 750 Balance 530 / 530 60 / 60 -450 / -450 Microbiology Past 72 Hours 06/24/19 22:05 Blood Culture (Wb) - Left Wrist Blood Culture - Preliminary No growth in 48 hours. 06/24/19 21:15 Blood Culture (Wb) - Anticubital Right Blood Culture - Preliminary No growth in 48 hours. 06/25/19 04:49 Urine, Clean Catch Urine Culture - Final Culture exhibits no growth. Current Medications Acetaminophen (Tylenol) 650 mg PO Q6H PRN PRN PRN Reason: Pain Score 1-10/Temp > 100.7 F Last Admin: 06/29/19 07:53 Dose: 650 mg Documented by: Calamine/Phenol (Calmoseptine Ointment) 1 applic TOPICAL BID [facility]; Protocol Last Admin: 06/29/19 10:15 Dose: 1 applic Documented by: Cefadroxil (Duricef) 1,000 mg PO BID [facility] Last Admin: 06/29/19 10:16 Dose: 1,000 mg Documented by: Glucagon () 1 mg IM .X1 PRN PRN Reason: Hypoglycemia Heparin Sodium (Porcine) (Heparin Na) 5,000 unit SC Q8 [facility] Last Admin: 06/29/19 06:05 Dose: 5,000 unit Documented by: Melatonin (Melatonin) 3 mg PO QHS PRN PRN PRN Reason: INSOMNIA Nutritional Formula (Lactose Free) (Ensure Enlive) 120 ml PO 4X/DAY [facility] Last Admin: 06/29/19 10:20 Dose: 120 ml Documented by: Nystatin (Mycostatin) 1 applic TOPICAL BID [facility]; Protocol Last Admin: 06/29/19 10:16 Dose: 1 applicatio Documented by: Ondansetron HCl (Zofran) 4 mg IV Q8H PRN PRN PRN Reason: NAUSEA/VOMITING Last Admin: 06/26/19 15:12 Dose: 4 mg Documented by: Sodium Chloride () 10 - 40 ml IV UD PRN PRN Reason: SALINE FLUSH Last Admin: 06/27/19 15:26 Dose: 10 ml Documented by: Discharge Diet: Low fat/ Low Cholesterol Discharge Activity: Return to Normal Activity Weight Bearing Status: Weight bearing as tolerated Call your doctor if you observe: Fever of 101 or Higher, Shortness of breath, Swelling in the ankles Home Medications: Medications to take at Discharge Cefadroxil [Duricef] 1,000 mg PO BID #10 cap 06/29/19 Following Prescrptions Were Given to Patient: Cefadroxil [Duricef] 1,000 mg PO BID #10 cap Prescription Printed Primary Care Physician: Care Physician,No Primary [Primary Care Provider] - Please Follow Up With: Jules Atkins MD When: one week; call office for an appointment Disposition: Senior Living facility Minutes spent on discharge:: 35 Patient Condition:: Stable Medical Necessity - Tobacco Use Smoking Status: Never smoker Meaningful Use Info Meaningful Use Diagnoses (Choose all that apply): None applicable Code Visit Inpatient E&M: 78003 Disch Hosp
[2019-06-29 11:00] VITALS: RESP 18
[2019-06-29 13:45] VITALS: BP 126/65; PULSE 79; RESP 18; TEMP 36.5; O2SAT 93
--- NOTE | 2019-06-29 15:40 | NURSING ---
report called to isra @ [facility]
[2019-06-29 17:20] VITALS: BP 126/65; PULSE 18; RESP 18; TEMP 36.5; O2SAT 93
== END 2019-06-29 17:20 | disposition skilled nursing facility (03) | DRG 720 ==
LOC: ED 21:55 → MS3 22:57
PROVIDERS: Internal Medicine; Admitting Provider Hospitalist; Emergency Provider Emergency Medicine; Referring Provider Hospitalist; Visit Provider Student in an Organized Health Care Education/Training Program
DX: A41.9 Sepsis, unspecified organism (principal); R65.20 Severe sepsis without septic shock; M62.82 Rhabdomyolysis; N17.9 Acute kidney failure, unspecified; E87.6 Hypokalemia; E83.51 Hypocalcemia; L30.4 Erythema intertrigo; L03.115 Cellulitis of right lower limb; L03.116 Cellulitis of left lower limb; E66.01 Morbid (severe) obesity due to excess calories; Z68.42 Body mass index [BMI] 45.0-49.9, adult; R53.81 Other malaise
CPT/HCPCS: 36415; 71045; 80048; 80053; 81001; 82550; 82962; 83605; 85025; 85610; 85730; 87040; 87086; 93005; 94762; 97110; 97116; 97162; 97166; 97530; 97802; 99285; J7030; J7040; J7050; A4216; J2405

== ENCOUNTER → 2019-09-01 11:34 | Outpatient (CLI) | payer MEDICAID, SELFPAY ==
[2019-06-25 00:05] VITALS: BMI 49.4
== END ==
PROVIDERS: Referring Provider Nurse Practitioner Adult Health; Visit Provider Nurse Practitioner Adult Health
DX: R06.02 Shortness of breath (principal)
CPT/HCPCS: 87633

== ENCOUNTER 2021-10-27 08:08 | Observation (INO) | payer MEDICARE, MEDICAID, SELFPAY ==
[2021-10-27] VITALS (8 sets, daily range): BP systolic 96–135; BP diastolic 67–85; PULSE 89–111; RESP 16–29; TEMP 36.8–36.9; O2SAT 93–97; BMI 53.1; BMI 53.6
--- NOTE | 2021-10-27 08:50 | EDS_ITS ---
HPI HPI - GI History of Present Illness Chief Complaint: Abd Pain Informant: patient Abdominal Pain/Flank Pain Onset: Yesterday Context: Gradual Onset Timing: Intermittent and Lasts (Few minutes) Quality: Cramping Location: Diffuse Current Severity: Gone Maximum Severity: Mild Relieved by: - (Having diarrhea soft bowel movement) Nausea/Vomiting/Emesis GI Symptom: Positive for Nausea and Vomiting Onset: Yesterday Quality: Positive for Nonbilious; Negative for Blood streaks, Coffee ground and Hematemesis Severity: Mild Diarrhea/Melena/Hematochezia GI Symptom: Positive for Diarrhea; Negative for Melena and Hematochezia Onset: Yesterday Stool Quality: Positive for Watery Severity: Severe (More than 10 times per day) Associated Symptoms Associated Symptoms: Negative for Dysuria, Frequency, Hematuria and Urgency Narrative Narrative: Patient states he started having severe diarrhea yesterday, he is having some intermittent abdominal cramping that goes away when he has the diarrhea then. He denies any fevers or chills. He feels malaised no syncopal episodes or lightheadedness. He did vomit once yesterday and has not eaten since. He is trying to drink fluids. He denies any other new symptoms. Has never had this before. No recent travel out of the area or his apartment. No recent antibiotics. No new sources of water intake, or camping recently /ground water ingestion, but he states that the apartment complex he lives in is very old and the pipes are very old and one of his neighbors upstairs had this diarrhea 1 or 2 weeks ago. He does not know any details, he does not have contact with him a lot, but he does have contact with him. He denies ingesting any suspicious foods were undercooked meats, raw fish, etc. No history of C. difficile. [facility] Medical History (Updated 10/27/21 @ 11:[address] Giovanni Austin MD) Morbid obesity Home Medications NK 10/27/21 [History Last Taken Unknown] Allergy/AdvReac Type Severity Reaction Status Date / Time No Known Allergies Allergy Verified 10/27/21 08:13 Social History Smoking Status: Never smoker ROS ROS ED Constitutional Constitutional ED: Reports malaise; Denies chills or fever(s) Eyes Eyes: Denies change in vision or diplopia ENT ENT ED: Denies rhinorrhea or sore throat Cardiovascular Cardiovascular: Reports pedal edema; Denies chest pain or palpitations Respiratory/Chest Respiratory/Chest: Denies cough or dyspnea Gastrointestinal Gastrointestinal: Reports as per HPI, abdominal pain, diarrhea, nausea and vomiting Genitourinary Genitourinary ED: Denies dysuria or hematuria Musculoskeletal Musculoskeletal: Denies back pain or neck pain Integumentary Denies abscess or rash Neurologic Neurologic: Denies headache(s), paresthesias or weakness Psychiatric Psychiatric: Denies anxiety or suicidal thoughts EXAM Physical Exam Const Vital Signs: 10/27/21 08:09 10/27/21 08:13 10/27/21 10:13 Temperature 98.5 F 98.5 F 98.5 F Temperature Source Oral Oral Oral Pulse Rate 111 H 111 H 103 H Respiratory Rate 24 H 24 H 29 H Blood Pressure 96/85 H 96/85 H 117/69 Blood Pressure Mean 88 88 85 Pulse Ox 93 93 94 Oxygen Delivery Method Room Air Room Air Nasal Cannula Oxygen Flow Rate (L/min) 2 Positive well nourished and well developed Constitutional Narrative: Keenly alert and conversive. Obesity limits exam. General Appearance ED: well developed and NAD Nutritional Appearance: morbidly obese HEENT Reports moist mucous membranes normocephalic and atraumatic Eyes PERRL and EOMs intact bilaterally Neck full ROM and supple Resp normal respiratory effort and clear to auscultation bilaterally Cardio regular rate, regular rhythm and no murmurs Rate: tachycardic GI non-tender and non-distended GI Narrative: Morbidly obese abdomen, evidence of chronic appearing candidal infections intertriginous beneath pannus. Soft nontender easily reducible umbilical hernia. No rectal tenderness or perianal abscess. Patient intermittently having profuse watery light brown nonmelanotic nonbloody diarrhea. Auscultation: hyperactive bowel sounds Palpation: soft Back/Spine no CVA tenderness General Back: other FROM Extremity normal to inspection General Extremety ED: Yes edema; Negative for pulses abnormal or tenderness General Extremity: edema bilateral lower extremity (Dark stasis dermatitis bilaterally and symmetrically, no signs of anything acute or an abscess. Nontender.) Details: moderate; Negative for pulses abnormal Neuro oriented x3, CN's II-XII intact bilaterally and no sensory deficits noted Sensorium / Orientation: awake and alert Motor Exam: strength 5/5 throughout Skin no rashes or lesions noted and no wounds MDM MDM MDM Narrative Medical decision making narrative: Patient initially mildly hypotensive and tachycardic, this improved responding well to IV fluids. He does not have a significant leukocytosis, he does have prerenal azotemia consistent with mild dehydration, and his stool is showing positive fecal white blood cells suggesting bacterial etiology. Enteric panel and C. difficile are still pending at this time. He does not appear to be in septic shock clinically, he looks well feels a little better but still very malaised and tired and is having trouble caring for himself at home with this. Plan will be for admission. Lab Data Attestation: I reviewed the patient's lab results. Labs: Laboratory Results - last 24 hr 10/27/21 10/27/21 08:25 08:25 WBC 6.5 RBC 4.71 Hgb 15.9 Hct 46.7 MCV 99.2 H MCH 33.8 H MCHC 34.0 RDW Std Deviation 49.8 H RDW Coeff of Tye 13.4 Plt Count 197 MPV 9.9 Immature Gran % (Auto) 0.500 Neut % (Auto) 76.8 H Lymph % (Auto) 16.8 L [place] % (Auto) 5.4 Eos % (Auto) 0.3 Baso % (Auto) 0.2 Absolute Neuts (auto) 5.0 Absolute Lymphs (auto) 1.09 Nucleated RBC % 0 Sodium 133 L Potassium 3.3 L Chloride 98 Carbon Dioxide 27.0 Anion Gap 8 BUN 22 H Creatinine 1.17 Estim Creat Clear Calc 78.72 Est GFR (MDRD) Af Amer 83 Est GFR (MDRD) Non-Af 68 BUN/Creatinine Ratio 18.8 Glucose 224 H Calcium 8.5 Total Bilirubin 0.60 AST 225 H ALT 138 H Alkaline Phosphatase 96 Total Protein 8.6 H Albumin 2.7 L Globulin 5.9 H Albumin/Globulin Ratio 0.5 L Discharge Plan Dx/Rx/DC Orders Clinical Impression: Acute diarrhea, Dehydration, Transient hypotension Disposition Disposition: Acute Care [facility]
[2021-10-27] MEDS: 0.9% Normal Saline 1,000 ML 999 ML IV (09:09)
[2021-10-27] MEDS: Ondansetron 4 MG/2 ML Vial IV (09:10)
[2021-10-27] MEDS: Dicyclomine 10 MG Capsule 20 MG PO (09:10)
[2021-10-27 09:17] LABS: Absolute Lymphocyte Count 1.09 X10^3/uL (0.83-4.51); Basophil# 0.01 X10^3/uL; Basophil% 0.2 % (0-1); Eosinophil# 0.02 X10^3/uL; Eosinophils% 0.3 % (0-5); Hematocrit 46.7 % (40-54); Hemoglobin 15.9 g/dL (13.0-16.5); Lymphocyte # 1.09 X10^3/ul (0.83-4.51); Lymphocyte % 16.8 % (19-41); Mean Corpuscular Hgb 33.8 pg (27.0-32.0); Mean Corpuscular Volume 99.2 fL (80-94); Mean Platelet Vol. 9.9 fl (6.2-12.0); Monocyte# 0.35 X10^3/uL; Monocyte% 5.4 % (0-10); NRBC Flagged by Analyzer 0 % (0-5); Neutrophil # 4.97 X10^3/uL (2.7-7.7); Neutrophil % 76.8 % (47-70); Platelet Count 197 K/mm3 (150-450); RBC Distribution Width CV 13.4 % (11.6-14.6); RBC Distribution Width SD 49.8 fl (35.1-43.9); Red Blood Count 4.71 M/mm3 (4.6-6.2); White Blood Count 6.5 K/mm3 (4.4-11.0)
[2021-10-27 09:32] LABS: ALB/GLOB Ratio 0.5 RATIO (0.9-2.4); AST(SGOT) 225 U/L (15-37); Alanine Aminotransfer ALT/SGPT 138 U/L (16-61); Albumin, Serum 2.7 g/dL (3.2-5.0); Alkaline Phosphatase 96 U/L (45-117); Anion Gap 8 (5-15); BUN 22 mg/dL (7-18); BUN/Creat Ratio 18.8 RATIO (10-20); Calcium,Total 8.5 mg/dL (8.5-10.1); Chloride 98 mmol/L (98-107); Creatinine, Serum 1.17 mg/dL (0.70-1.30); EST Glomerular Filtration Rate 68 mL/min (>60); Est Glom Filt Rate - Afr Amer 83 mL/min (>60); Estimated Creatinine Clearance 78.72 ml/min; Globulin 5.9 g/dL (2.2-4.2); Glucose 224 mg/dL (74-106); Potassium 3.3 mmol/L (3.5-5.1); Protein, Total 8.6 g/dL (6.4-8.2); Sodium Level 133 mmol/L (136-145)
--- NOTE | 2021-10-27 12:16 | HP.PCM.HOS_ITS ---
HPI - General General Date of Admission: 10/27/21 HPI Narrative JACKELIN ZENDEJAS, is a 56 M who presents to the hospital with nausea, vomiting, and diarrhea. He says that he has been having some fairly significant diarrhea for several days and just feels very tired and fatigued. The ER did send stool samples and it came back positive for white blood cells and he also tested positive for norovirus. He presents today because of diarrhea became more severe yesterday into today. He is unable to take care of himself at home and has difficulty keeping up with the hydration at home [facility] Medical History (Updated 10/27/21 @ 13:[address] Shalom Peralta MD) Morbid obesity Home Medications NK 10/27/21 [History Last Taken Unknown] Allergy/AdvReac Type Severity Reaction Status Date / Time No Known Allergies Allergy Verified 10/27/21 08:13 Family History (Updated 10/27/21 @ 13:[address] Shalom Peralta MD) Other Cancer Surgical History (Updated 10/27/21 @ 13:14 by Jarred Marcos RN) History of appendectomy Social History Smoking Status: Never smoker ROS Constitutional Constitutional: Reports fatigue and malaise; Denies chills or fever(s) Eyes Eyes: Denies blurry vision ENT HEENT: Denies headache(s) or nasal discharge Cardiovascular Cardiovascular: Denies chest pain, dyspnea on exertion or syncope Respiratory/Chest Respiratory/Chest: Denies cough, shortness of breath at rest or shortness of breath with exertion Gastrointestinal Gastrointestinal: Reports abdominal pain, diarrhea, nausea and vomiting; Denies constipation Genitourinary Genitourinary: Denies dysuria Neurologic Neurologic: Denies focal weakness, numbness or tremor(s) Psychiatric Psychiatric: Denies anxiety or depression Vital Signs Vital Signs Vital Signs: 10/27/21 08:09 10/27/21 08:13 10/27/21 10:13 Temperature 98.5 F 98.5 F 98.5 F Temperature Source Oral Oral Oral Pulse Rate 111 H 111 H 103 H Respiratory Rate 24 H 24 H 29 H Blood Pressure 96/85 H 96/85 H 117/69 Blood Pressure Mean 88 88 85 Pulse Ox 93 93 94 Oxygen Delivery Method Room Air Room Air Nasal Cannula Oxygen Flow Rate (L/min) 2 10/27/21 11:47 Temperature 98.2 F Temperature Source Temporal Pulse Rate 97 Respiratory Rate 25 H Blood Pressure 113/67 Blood Pressure Mean 82 Pulse Ox 94 Oxygen Delivery Method Oxygen Flow Rate (L/min) Weight Weight: 403 lb 0.08 oz Body Mass Index (BMI) 53.1 Physical Exam Const alert and oriented x3 General Appearance: cooperative HEENT normocephalic Mouth: dry mucous membranes Eyes PERRL, EOMs intact bilaterally and conjunctivae normal Neck supple and no JVD Resp normal respiratory effort, no retractions, no use of accessory muscles and clear to auscultation bilaterally Auscultation: Negative for crackles, rales, rhonchi or wheezes Cardio regular rate, regular rhythm, S1 normal heart sound, S2 normal heart sound and no murmurs GI soft to palpation, non-tender and non-distended; Negative for hepatosplenomegaly Extremity no clubbing, cyanosis or edema Skin no rashes or lesions noted Neuro no focal motor deficits and no sensory deficits noted Psych affect normal Appearance: appropriate Results Lab / Micro Data Result Diagrams: 10/27/21 08:25 10/27/21 08:25 Labs: Laboratory Results - last 24 hr 10/27/21 08:25: WBC 6.5, RBC 4.71, Hgb 15.9, Hct 46.7, MCV 99.2 H, MCH 33.8 H, MCHC 34.0, RDW Std Deviation 49.8 H, RDW Coeff of Tye 13.4, Plt Count 197, MPV 9.9, Immature Gran % (Auto) 0.500, Neut % (Auto) 76.8 H, Lymph % (Auto) 16.8 L, [place] % (Auto) 5.4, Eos % (Auto) 0.3, Baso % (Auto) 0.2, Absolute Neuts (auto) 5.0, Absolute Lymphs (auto) 1.09, Nucleated RBC % 0 10/27/21 08:25: Sodium 133 L, Potassium 3.3 L, Chloride 98, Carbon Dioxide 27.0, Anion Gap 8, BUN 22 H, Creatinine 1.17, Estim Creat Clear Calc 78.72, Est GFR (MDRD) Af Amer 83, Est GFR (MDRD) Non-Af 68, BUN/Creatinine Ratio 18.8, Glucose 224 H, Calcium 8.5, Total Bilirubin 0.60, AST 225 H, ALT 138 H, Alkaline Phosphatase 96, Total Protein 8.6 H, Albumin 2.7 L, Globulin 5.9 H, Albumin/Globulin Ratio 0.5 L Micro: Microbiology 10/27/21 09:05 Stool Stool Lactoferrin - Final Assessment & Plan Assessment/Plan (1) Viral gastroenteritis: PLAN: 1. Viral gastroenteritis/morbid obesity ? Studies came back positive for norovirus ? Continue with IV hydration ? Continue with Zofran and will allow him to eat ? Potassium is little bit low at 3.3 and his phosphorus is 2.3 with a magnesium of 1.6 given the severity of his diarrhea will replace all 3 ? Discussed lifestyle modifications given his obesity 2. Unsure as to his other medical problems as he never sees a doctor. His blood sugars are little bit elevated this could be in response to the stress from gastroenteritis we will continue to monitor. I did recommend that he follow-up with the PCP on discharge. DVT: Lovenox Charges/Coding Visit Charges OBSV E&M: 83675 Initial observation care L2
[2021-10-27 13:15] LABS: Magnesium 1.6 mg/dL (1.6-2.6); Phosphorus 2.3 mg/dL (2.5-4.9)
[2021-10-27] MEDS: 0.9% Normal Saline 1,000 ML 150 ML IV ×2 (13:16→20:15)
--- NOTE | 2021-10-27 14:10 | CASEMGMT ---
RN SHEILA CHARGE MACHINE OPERATOR CM to room to meet with patient for initial transition planning/care coordination assessment. MINNA SOSA introduced self and role at [facility]. Pt voices understanding and consents to assessment at this time. Pt resting in bed in no distress at this time. Pt is A/O at this time and answers all questions appropriately. Care providers, pharmacy, and demographics verified/updated at this time. PCP: No PCP. Pt provided w/list of local PCP's Specialists: None Preferred Pharmacy: [facility] Retail Insurance: [employer] Prescription Benefit: Pt is not sure if he has Rx coverage. Living Will/HPOA: Pt does not currently have LW/HCPOA. He states he would most likely would have his friend, Israel, be his POA, but he wants to think about it first. He does not want to complete paperwork at this time. Pt made aware to notify staff if he changes his mind and would like to complete them while at [facility] and also made aware that he can contact SW as an out-pt and make appt in the future if he decides he would like do them after he discharges. Given [employer] card with information and contact number. Pt expresses understanding. LNOK: No living relatives. His friend, Israel Wisdom, is listed as only personal computer network analyst. He does not wish to list anyone else at this time. Living Arrangements: Lives alone in ground-floor apt. No steps to enter. Pt states he is independent w/ADL's and IADL's. He states he does not leave his home much, stating, I have a fear of people looking at me. He states he has been weak lately w/recent illness. He does not use DME to ambulate in the home but does use a walker for community distances. He has his meals/groceries delivered. He has a Concrete Layer @ [employer], Molly. He states she is currently on maternity leave, so Serina has been working w/him until Molly returns. He is interested in getting help in his home for home mgmt tasks. Pt states he does not currently have a Waiver, but would like to see if he qualifies. Dunia MATHIAS, made aware. Transportation: Pt uses [employer]. DME: States has the following DME: walker, lift chair. Pt has a v belt curer but states he would like to get a new one. He would also like a RTS. Pt made aware RTS and reachers are not covered by insurance. He was made aware of several places these could be purchased at. He voices appreciation. Pt states no need for further DME at this time. HHC/SNF: Hx of [facility] in 2020. Has not had HHC. Initially pt interested in HHC. Pt made aware HHC unable to be set up, as he has no PCP. Pt made aware, if he gets established w/a PCP, HHC can be set up through the office. MINNA SOSA offered to contact [facility] to see if they have an appt available, but he declines at this time. Pt also made aware of option of doing OP therapy. Pt also declines OP therapy at this time. Made aware to ask for CM if he changes his mind. Pt wishes to return home and states has no concerns with going home at time of discharge. CM to follow for for any further discharge planning/needs. Pt voices no further concerns/needs at this time. Advised pt to ask for CM if any further questions/concerns/needs arise. Voices understanding. PLAN: Home w/discharge plans in place. Jan MANDUJANO RN, CM
[2021-10-27] MEDS: Enoxaparin 40 MG/0.4 ML Syringe SC (21:38)
[2021-10-28] VITALS (7 sets, daily range): BP systolic 123–158; BP diastolic 73–86; PULSE 79–93; RESP 16–18; TEMP 36.4–37.4; O2SAT 90–94
[2021-10-28] MEDS: Acetaminophen 325 MG Tablet 650 MG PO ×2 (00:34→14:15)
[2021-10-28] MEDS: 0.9% Normal Saline 1,000 ML 150 ML IV ×3 (03:00→16:42)
[2021-10-28 06:06] LABS: Absolute Lymphocyte Count 1.44 X10^3/uL (0.83-4.51); Absolute Neutrophil Count 4.3 X10^3/uL (2.0-7.7); Basophil# 0.01 X10^3/uL; Basophil% 0.2 % (0-1); Eosinophil# 0.15 X10^3/uL; Eosinophils% 2.3 % (0-5); Hematocrit 44.1 % (40-54); Hemoglobin 14.4 g/dL (13.0-16.5); Lymphocyte # 1.44 X10^3/ul (0.83-4.51); Lymphocyte % 22.5 % (19-41); Mean Corp Hgb Conc 32.7 g/dL (32-36); Mean Corpuscular Hgb 33.3 pg (27.0-32.0); Mean Corpuscular Volume 101.8 fL (80-94); Mean Platelet Vol. 9.5 fl (6.2-12.0); Monocyte# 0.52 X10^3/uL; Monocyte% 8.1 % (0-10); NRBC Flagged by Analyzer 0 % (0-5); Neutrophil # 4.26 X10^3/uL (2.7-7.7); Neutrophil % 66.6 % (47-70); Platelet Count 162 K/mm3 (150-450); RBC Distribution Width CV 13.8 % (11.6-14.6); RBC Distribution Width SD 52.2 fl (35.1-43.9); Red Blood Count 4.33 M/mm3 (4.6-6.2); White Blood Count 6.4 K/mm3 (4.4-11.0)
[2021-10-28 06:51] LABS: Anion Gap 2 (5-15); BUN 16 mg/dL (7-18); BUN/Creat Ratio 16.9 RATIO (10-20); Calcium,Total 7.6 mg/dL (8.5-10.1); Chloride 102 mmol/L (98-107); Creatinine, Serum 0.95 mg/dL (0.70-1.30); EST Glomerular Filtration Rate 87 mL/min (>60); Est Glom Filt Rate - Afr Amer 105 mL/min (>60); Estimated Creatinine Clearance 94.16 ml/min; Glucose 159 mg/dL (74-106); Potassium 4.1 mmol/L (3.5-5.1); Sodium Level 133 mmol/L (136-145)
--- NOTE | 2021-10-28 09:32 | PCM.DC ---
Discharge Instructions Diet Discharge Diet: Low fat / Low cholesterol and 2000 Calorie Control Diet Activity Discharge Activity: Return to Normal Activity Dressing / Incision Call your doctor if you observe: Fever of 101 or Higher, Shortness of breath, Dizziness, Fainting spells, Swelling in the ankles, Chest pain and Increased palpitations (irregular heartbeat) Follow Up Care Test Results: Test results from this visit will be discussed in further detail at your follow-up appointment, if applicable. Discharge Plan Admission Admit Date/Time: 10/27/21 12:03 Attending Provider: Shalom Peralta Primary Care Provider: Care Physician,Karena Primary Discharge Orders/Prescriptions Prescriptions: New ondansetron 4 mg tablet,disintegrating 4 mg PO Q8H PRN (Reason: nausea and vomiting) Qty: 7 RF: 0 Referrals / Follow Up: Care Physician,No Primary [Primary Care Provider] - Disposition Disposition (needs filled in before D/C Order can be placed): Home, Self Care
--- NOTE | 2021-10-28 10:05 | PCM.DC.SUM ---
Providers Date of Admission: 10/27/21 Primary Care Physician: No Primary Care Phys Reason For Visit: GASTROENTERITIS Diagnosis Discharge Diagnosis (1) Viral gastroenteritis: Status: Acute Code(s): A08.4 - Viral intestinal infection, unspecified Medications at Discharge Home Medications ondansetron 4 mg PO Q8H PRN #7 tab 10/28/21 Hospital Course Operations None Procedures None Summary of Care Provided Minutes Spent on Discharge: 37 Hospital Course: Per HPI: JACKELIN ZENDEJAS, is a 56 M who presents to the hospital with nausea, vomiting, and diarrhea. He says that he has been having some fairly significant diarrhea for several days and just feels very tired and fatigued. The ER did send stool samples and it came back positive for white blood cells and he also tested positive for norovirus. He presents today because of diarrhea became more severe yesterday into today. He is unable to take care of himself at home and has difficulty keeping up with the hydration at home Hospital Course: 1. Viral gastroenteritis from norovirus/morbid obesity?56-year-old male presented from home with several days of diarrhea that got worse on the day of admission. He has not been able to keep up with his oral hydration at home to present to the hospital. He was little bit hypotensive which resolved with fluid replacement. Also his electrolytes were a little bit deranged and these were all replaced yesterday and his potassium is stable this morning. I discussed with him the plan for discharge today and he expressed understanding of the risk benefits of going home and would like to go home today. We will discharge him on some Zofran to help with any nausea and I did encourage him to continue with aggressive p.o. hydration and that hydration is more important than eating at this point until his stomach settles. 2. He does not see a primary care physician so he likely has multiple medical problems that have not been diagnosed or addressed at this time I did encourage him to find a primary care physician in the community. Of note now that he is stable his blood pressure is little bit elevated to the 140s and his blood sugars are also a little bit elevated as well. Physical Exam Const alert and oriented x3 General Appearance: cooperative HEENT normocephalic and moist oral mucous membranes Eyes PERRL, EOMs intact bilaterally and conjunctivae normal Neck supple and no JVD Resp normal respiratory effort, no retractions, no use of accessory muscles and clear to auscultation bilaterally Auscultation: Negative for crackles, rales, rhonchi or wheezes Cardio regular rate, regular rhythm, S1 normal heart sound, S2 normal heart sound and no murmurs GI soft to palpation, non-tender and non-distended; Negative for hepatosplenomegaly Extremity no clubbing, cyanosis or edema Skin no rashes or lesions noted Neuro no focal motor deficits and no sensory deficits noted Psych affect normal Appearance: appropriate Weight / BMI Weight Weight: 396 lb Body Mass Index (BMI) 53.6 ABG / Lab / Microbiology Data Result Diagrams: 10/28/21 05:35 10/28/21 05:35 Laboratory: Laboratory Results - last 24 hr 10/27/21 08:25: Phosphorus 2.3 L, Magnesium 1.6 10/28/21 05:35: WBC 6.4, RBC 4.33 L, Hgb 14.4, Hct 44.1, MCV 101.8 H, MCH 33.3 H, MCHC 32.7, RDW Std Deviation 52.2 H, RDW Coeff of Tye 13.8, Plt Count 162, MPV 9.5, Immature Gran % (Auto) 0.300, Neut % (Auto) 66.6, Lymph % (Auto) 22.5, [place] % (Auto) 8.1, Eos % (Auto) 2.3, Baso % (Auto) 0.2, Absolute Neuts (auto) 4.3, Absolute Lymphs (auto) 1.44, Nucleated RBC % 0 10/28/21 05:35: Sodium 133 L, Potassium 4.1, Chloride 102, Carbon Dioxide 29.0, Anion Gap 2 L, BUN 16, Creatinine 0.95, Estim Creat Clear Calc 94.16, Est GFR (MDRD) Af Amer 105, Est GFR (MDRD) Non-Af 87, BUN/Creatinine Ratio 16.9, Glucose 159 H, Calcium 7.6 L Microbiology: Microbiology 10/27/21 09:05 Stool Stool Lactoferrin - Final 10/27/21 09:05 Stool Enteric Bacteriology - Final Norovirus 10/27/21 09:05 Stool C. difficile DNA Amplification - Final D/C Instructions Discharge Diet: Low fat / Low cholesterol and 2000 Calorie Control Diet Call your doctor if you observe: Fever of 101 or Higher, Shortness of breath, Dizziness, Fainting spells, Swelling in the ankles, Chest pain and Increased palpitations (irregular heartbeat) Meaningful Use Info Meaningful Use Diagnoses (Choose all that apply): None applicable Discharge Plan Admission Admit Date/Time: 10/27/21 12:03 Attending Provider: Shalom Peralta Primary Care Provider: Care Physician,No Primary Discharge Orders/Prescriptions Prescriptions: New ondansetron 4 mg tablet,disintegrating 4 mg PO Q8H PRN (Reason: nausea and vomiting) Qty: 7 RF: 0 Referrals / Follow Up: Care Physician,No Primary [Primary Care Provider] - Disposition Disposition (needs filled in before D/C Order can be placed): Home, Self Care Charges/Coding Visit Charges OBSV E&M: 77975 Observation care discharge
[2021-10-28] MEDS: Enoxaparin 40 MG/0.4 ML Syringe SC (10:24)
--- NOTE | 2021-10-28 10:45 | CM.UR ---
Social Work SW met w/pt in room in regard to Waiver Services and history of depression. Pt open to taking information on Waiver, information provided. Pt agreeable to SW completing application--SW completed and put in the mail. SW also asked pt about history of depression. Pt denies wanting to harm himself. He did go on to say all his family is , he has one friend in [facility]. Pt is grateful he has an apartment now, and has assist through PIP and HEAP. Pt gets rental assist through [employer]. Pt states lives near the [place] and enjoys this. He spoke about feeling alone at times however, and spoke about people in his life who have not been supportive. Support offered. SW asked pt about seeing a counselor, as pt has been involved with [employer] in the past. Pt states he is actually set up for a phone intake on Saturday, doesn't remember the name of the agency however. SW did provide a list of mental health agencies for pt, in the event it does not work out with the agency pt is meeting w/Saturday. Pt states understanding. SW also asked pt if he has a way to get home, pt states he does not. SW explained will see if we can get pt a taxi ride home. SW asked scrap charger if pt can get a ride home, she states this will be fine. No further needs, pt home when discharged. MARTA Kate
[2021-10-28] MEDS: Ondansetron 4 MG/2 ML Vial IV (14:00)
== END 2021-10-28 10:05 | disposition home or self-care (01) ==
LOC: ED 11:23 → PCU 12:11
PROVIDERS: Admitting Provider Family Medicine; Emergency Provider Emergency Medicine; Visit Provider Family Medicine
DX: A08.11 Acute gastroenteropathy due to Norwalk agent (principal); E66.01 Morbid (severe) obesity due to excess calories; Z68.43 Body mass index [BMI] 50.0-59.9, adult; E86.0 Dehydration; R03.1 Nonspecific low blood-pressure reading
CPT/HCPCS: 36415; 80048; 80053; 83630; 83735; 84100; 85025; 87177; 87209; 87493; 87506; 96361; 96365; 96366; 96372; 96375; 96376; 99218; 99285; J7030; J7050; A4216; G0378; J2405

== ENCOUNTER 2022-07-16 22:39 | Observation (INO) | payer MEDICARE, MEDICAID, SELFPAY ==
[2022-07-16 22:43] VITALS: BP 176/89; PULSE 90; RESP 22; TEMP 36.2; O2SAT 95; BMI 55.0
--- NOTE | 2022-07-16 23:42 | EDS_ITS ---
HPI History of Present Illness Chief Complaint: Wound Check Informant: patient Narrative Narrative: Patient is a 56-year-old male with history of chronic lipidemia, walker dependent and obesity with a BMI 55 presenting with wound to his left lower extremity. Patient states he scraped the back of his left calf on his chair about a week ago. Him and a friend of been trying to bandage it. Is worried it is getting worse and his friend thought he needed to have it medically evaluated. Patient does not have any associated pain. Does have some mild drainage with it. Denies any fever, chills or other systemic symptoms. Is worried he might need wound care and is worried that it could progress to more severe wound/infection so he came in for evaluation. [facility] Medical History Kidney stones Morbid obesity Home Medications NK 07/16/22 [History Last Taken Unknown] Allergy/AdvReac Type Severity Reaction Status Date / Time No Known Allergies Allergy Verified 07/16/22 22:40 Family History Other Cancer Surgical History History of appendectomy Social History Smoking Status: Never smoker ROS ROS ED Constitutional Constitutional ED: Denies chills or fever(s) Eyes Eyes: Denies change in vision Cardiovascular Cardiovascular: Denies chest pain or palpitations Respiratory/Chest Respiratory/Chest: Denies cough Gastrointestinal Gastrointestinal: Denies abdominal pain, nausea or vomiting Musculoskeletal Musculoskeletal: Denies arthralgias or myalgias Integumentary Reports Abrasions Neurologic Neurologic: Denies paresthesias or weakness Psychiatric Psychiatric: Reports anxiety Hematologic/Lymphatic Hematologic/Lymphatic: Denies easy bleeding or easy bruising EXAM Physical Exam Const Vital Signs: 07/16/22 22:43 07/17/22 02:00 Temperature 97.2 F L 96.8 F L Temperature Source Temporal Temporal Pulse Rate 90 95 Respiratory Rate 22 H 22 H Blood Pressure 176/89 H 144/72 H Blood Pressure Mean 118 96 Pulse Ox 95 96 Oxygen Delivery Method Room Air Room Air Positive well nourished, well developed and obese General Appearance ED: well developed and NAD Nutritional Appearance: obese HEENT Reports moist mucous membranes normocephalic and atraumatic Eyes PERRL Neck full ROM and supple Chest Wall inspection of chest normal and palpation of chest normal Resp normal respiratory effort and clear to auscultation bilaterally Cardio regular rate, regular rhythm and no murmurs GI non-tender and non-distended Extremity Extremity Narrative: Bilateral pitting edema of the lower extremities with significant chronic venous stasis changes to the bilateral legs going up to the midshin. Neuro oriented x3, moves all extremities and no sensory deficits noted Sensorium / Orientation: alert Psych mental status grossly normal Mood & Affect: anxious Skin Skin Narrative: Large ulcerated wound of the posterior left calf approximately 12 cm x 8 cm. Some mild serosanguineous drainage present and some mild granulation tissue of the superior aspect present. No associated skin crepitus. No associated lymphangitic streaking. No abnormal warmth. MDM MDM MDM Narrative Medical decision making narrative: Patient is evaluated for debility as well as wound to his left calf. Patient has an ulcerated wound to his left calf. He has difficult time ambulating and moving from the bed while in the ER and requires a two-person assist. He lives home alone and has minimal support services at home. While his white count is normal he does have an elevated ESR and CRP and there is concern for early wound infection. Patient is started on Unasyn in the ER. Discussed discharge home with antibiotics versus admission for evaluation for physical therapy/rehab. Patient is amenable to this and will be admitted to the hospital for potential rehab placement. Localized wound care and Douglas bandage for his venous stasis applied to the legs. Case is discussed with admitting hospitalist, Dr. Hurt. EMS report independently reviewed. Shows that patient had previously dressed the wound before their arrival and they assisted him to a cot and transfer him to the ER for evaluation of this Wound. He was hemodynamically stable at that time. Prior discharge summary from 06/24/2019 previously reviewed which showed at that time patient had cellulitis of bilateral lower extremities, severe sepsis and rhabdomyolysis. Patient was treated with IV Unasyn and had night infectious disease consult. Lab Data Attestation: I reviewed the patient's lab results. Labs: Laboratory Results - last 24 hr 07/16/22 07/16/22 23:38 23:38 WBC 8.8 RBC 4.30 L Hgb 14.2 Hct 42.2 MCV 98.1 H MCH 33.0 H MCHC 33.6 RDW Std Deviation 50.6 H RDW Coeff of Tye 14.1 Plt Count 210 MPV 9.3 Immature Gran % (Auto) 1.900 H Neut % (Auto) 62.3 Lymph % (Auto) 24.9 [place]Brien % (Auto) 6.8 Eos % (Auto) 3.5 Baso % (Auto) 0.6 Absolute Neuts (auto) 5.5 Absolute Lymphs (auto) 2.18 Nucleated RBC % 0.3 ESR 48 H Sodium 137 Potassium 4.0 Chloride 102 Carbon Dioxide 31.0 Anion Gap 4 L BUN 12 Creatinine 1.03 Estim Creat Clear Calc 86.85 Est GFR (MDRD) Af Amer 95 Est GFR (MDRD) Non-Af 79 BUN/Creatinine Ratio 11.7 Glucose 295 H Calcium 8.9 Total Creatine Kinase 136 C-React Prot Ext Range 15.40 H Discharge Plan Dx/Rx/DC Orders Clinical Impression: Wound infection, Debility, Morbid obesity with BMI of 50.0-59.9, adult Disposition Disposition: [facility] Care [facility], [place] Discharge Date/Time: 07/17/22 03:37
[2022-07-16 23:48] LABS: Erythrocyte Sedimentation Rate 48 mm/hr (0-20)
[2022-07-16 23:54] LABS: Absolute Lymphocyte Count 2.18 X10^3/uL (0.83-4.51); Absolute Neutrophil Count 5.5 X10^3/uL (2.0-7.7); Basophil# 0.05 X10^3/uL; Basophil% 0.6 % (0-1); Eosinophil# 0.31 X10^3/uL; Eosinophils% 3.5 % (0-5); Hematocrit 42.2 % (40-54); Hemoglobin 14.2 g/dL (13.0-16.5); Lymphocyte # 2.18 X10^3/ul (0.83-4.51); Lymphocyte % 24.9 % (19-41); Mean Corp Hgb Conc 33.6 g/dL (32-36); Mean Corpuscular Volume 98.1 fL (80-94); Mean Platelet Vol. 9.3 fl (6.2-12.0); Monocyte% 6.8 % (0-10); NRBC Flagged by Analyzer 0.3 % (0-5); Neutrophil # 5.45 X10^3/uL (2.7-7.7); Neutrophil % 62.3 % (47-70); Platelet Count 210 K/mm3 (150-450); RBC Distribution Width CV 14.1 % (11.6-14.6); RBC Distribution Width SD 50.6 fl (35.1-43.9); White Blood Count 8.8 K/mm3 (4.4-11.0)
[2022-07-17] VITALS (9 sets, daily range): BP systolic 128–159; BP diastolic 63–96; PULSE 67–98; RESP 15–30; TEMP 36–37; O2SAT 90–98; BMI 52.9
[2022-07-17 00:03] LABS: Anion Gap 4 (5-15); BUN 12 mg/dL (7-18); BUN/Creat Ratio 11.7 RATIO (10-20); CPK Total, Creatine Kinase 136 U/L (39-308); Calcium,Total 8.9 mg/dL (8.5-10.1); Chloride 102 mmol/L (98-107); Creatinine, Serum 1.03 mg/dL (0.70-1.30); EST Glomerular Filtration Rate 79 mL/min (>60); Est Glom Filt Rate - Afr Amer 95 mL/min (>60); Estimated Creatinine Clearance 86.85 ml/min; Glucose 295 mg/dL (74-106); Sodium Level 137 mmol/L (136-145)
--- NOTE | 2022-07-17 02:47 | HP.PCM.HOS_ITS ---
HPI - General General Date of Admission: 07/17/22 Date of Service: 07/17/22 Chief Complaint: Left leg wound HPI Narrative JACKELIN ZENDEJAS, is a 56 M with a significant history of super morbid obesity who presents to the emergency department with a wound on his left leg. Reportedly he hit his leg on a stool 4 to 5 days ago and sustained a wound. Patient and her friend used to dress the wound. The wound appears to be healing only to get worse a day before presentation. Patient denies any fever or chills. He denies anorexia. Also patient report that he is limited in getting resources to dress the wound. In the past patient was admitted for sepsis and after discharge spent some time at the [facility]. Patient reports that if SNF placement is required he will be happy to go back to the [facility]. [facility] Medical History Kidney stones Morbid obesity Home Medications NK 07/16/22 [History Last Taken Unknown] Allergy/AdvReac Type Severity Reaction Status Date / Time No Known Allergies Allergy Verified 07/16/22 22:40 Family History Other Cancer Surgical History History of appendectomy Social History Smoking Status: Never smoker ROS ROS Narrative Pertinent positives and pertinent negatives as noted in HPI. All other systems were reviewed and are negative Vital Signs Vital Signs Vital Signs: 07/16/22 22:43 07/17/22 02:00 Temperature 97.2 F L 96.8 F L Temperature Source Temporal Temporal Pulse Rate 90 95 Respiratory Rate 22 H 22 H Blood Pressure 176/89 H 144/72 H Blood Pressure Mean 118 96 Pulse Ox 95 96 Oxygen Delivery Method Room Air Room Air Weight Weight: 184.2 kg Body Mass Index (BMI) 55.0 Physical Exam Narrative Physical exam: General: Well-nourished, well-developed. Head: Normocephalic, atraumatic, no tenderness Eyes: Vision is grossly intact. EOMI ENT, no trauma, moist mucous membranes, no rhinorrhea Neck: Nontender, No thyromegaly. CVS: Regular rate and rhythm. S1-S2 present. No murmur, gallop or rub. Respiratory : clear to auscultation bilaterally, chest wall nontender, no wheezing Abdomen: Soft, nontender, nondistended, normal bowel sounds, no masses : Deferred Back: Nontender, no CVA tenderness, no midline spinal tenderness, deformities, step-offs Extremities: Bilateral leg edema. Wound at lateral side of left leg. Skin: Normal color, no trauma, abrasions Neuro: Alert, oriented, cranial nerves II through XII grossly intact. Psychiatry: Normal mood. Normal affect. Not depressed. Not anxious. Results Lab / Micro Data Result Diagrams: 07/16/22 23:38 07/16/22 23:38 Labs: Laboratory Results - last 24 hr 07/16/22 23:38: WBC 8.8, RBC 4.30 L, Hgb 14.2, Hct 42.2, MCV 98.1 H, MCH 33.0 H, MCHC 33.6, RDW Std Deviation 50.6 H, RDW Coeff of Tye 14.1, Plt Count 210, MPV 9.3, Immature Gran % (Auto) 1.900 H, Neut % (Auto) 62.3, Lymph % (Auto) 24.9, Wells % (Auto) 6.8, Eos % (Auto) 3.5, Baso % (Auto) 0.6, Absolute Neuts (auto) 5.5, Absolute Lymphs (auto) 2.18, Nucleated RBC % 0.3, ESR 48 H 07/16/22 23:38: Sodium 137, Potassium 4.0, Chloride 102, Carbon Dioxide 31.0, Anion Gap 4 L, BUN 12, Creatinine 1.03, Estim Creat Clear Calc 86.85, Est GFR (MDRD) Af Amer 95, Est GFR (MDRD) Non-Af 79, BUN/Creatinine Ratio 11.7, Glucose 295 H, Calcium 8.9, Total Creatine Kinase 136, C-React Prot Ext Range 15.40 H Assessment & Plan Assessment/Plan (1) Wound infection: (2) Morbid obesity with BMI of 50.0-59.9, adult: (3) Debility: PLAN: Plan Wound infection Patient with possible wound infection. White count is normal. Patient with bandemia of 1.9%. ESR of 48. CRP of 15.4. Trend CBC. Unasyn started at the emergency department and continued. Wound care consult. Morbid obesity with debility BMI: 53 kg/m?. Complicates care. Lifestyle modification recommended. PT and OT to evaluate treat and make recommendations. Case management consult for disposition Hyperglycemia BNP on presentation was 295. Review of labs showed blood glucose of 295. We will check A1c. Trend BMP. DVT prophylaxis Subcutaneous Lovenox ordered. Charges/Coding Visit Charges Inpatient E&M: 45912 Init Hosp L2
[2022-07-17 07:33] LABS: Absolute Lymphocyte Count 2.04 X10^3/uL (0.83-4.51); Absolute Neutrophil Count 8.9 X10^3/uL (2.0-7.7); Basophil# 0.05 X10^3/uL; Basophil% 0.4 % (0-1); Eosinophil# 0.35 X10^3/uL; Eosinophils% 2.9 % (0-5); Hematocrit 40.8 % (40-54); Hemoglobin 13.8 g/dL (13.0-16.5); Lymphocyte # 2.04 X10^3/ul (0.83-4.51); Lymphocyte % 16.8 % (19-41); Mean Corp Hgb Conc 33.8 g/dL (32-36); Mean Corpuscular Hgb 32.9 pg (27.0-32.0); Mean Corpuscular Volume 97.4 fL (80-94); Mean Platelet Vol. 9.3 fl (6.2-12.0); Monocyte# 0.79 X10^3/uL; Monocyte% 6.5 % (0-10); NRBC Flagged by Analyzer 0 % (0-5); Neutrophil # 8.85 X10^3/uL (2.7-7.7); Platelet Count 238 K/mm3 (150-450); RBC Distribution Width CV 14.2 % (11.6-14.6); RBC Distribution Width SD 50.7 fl (35.1-43.9); Red Blood Count 4.19 M/mm3 (4.6-6.2); White Blood Count 12.1 K/mm3 (4.4-11.0)
--- NOTE | 2022-07-17 07:33 | PCM.PN.HOSP ---
Subjective Subjective Follow-up left lower extremity wound infection ? Patient is a 56-year-old gentleman presenting with left lower extremity wound following recent trauma. Admitted to regular nursing floor where patient is currently being managed Objective Data Objective Data Vital Signs: Vital Signs Temp Pulse Resp BP Pulse Ox O2 Del Method 98.4 F 98 20 H 152/89 H 94 Room Air 07/17/22 04:25 07/17/22 04:25 07/17/22 04:25 07/17/22 04:25 07/17/22 04:25 07/17/22 04:25 Oxygen Delivery Method Room Air Weight: 177.1 kg Body Mass Index (BMI) 52.9 Intake & Output: Intake and Output for Last 24 Hours 07/15/22 07/16/22 07/17/22 23:59 23:59 23:59 Intake Total 112 / 112 Balance 112 / 112 Lab / Micro Data Result Diagrams: 07/17/22 07:03 07/17/22 07:03 Labs: Laboratory Results - last 24 hr 07/16/22 23:38: WBC 8.8, RBC 4.30 L, Hgb 14.2, Hct 42.2, MCV 98.1 H, MCH 33.0 H, MCHC 33.6, RDW Std Deviation 50.6 H, RDW Coeff of Tye 14.1, Plt Count 210, MPV 9.3, Immature Gran % (Auto) 1.900 H, Neut % (Auto) 62.3, Lymph % (Auto) 24.9, [place] % (Auto) 6.8, Eos % (Auto) 3.5, Baso % (Auto) 0.6, Absolute Neuts (auto) 5.5, Absolute Lymphs (auto) 2.18, Nucleated RBC % 0.3, ESR 48 H 07/16/22 23:38: Sodium 137, Potassium 4.0, Chloride 102, Carbon Dioxide 31.0, Anion Gap 4 L, BUN 12, Creatinine 1.03, Estim Creat Clear Calc 86.85, Est GFR (MDRD) Af Amer 95, Est GFR (MDRD) Non-Af 79, BUN/Creatinine Ratio 11.7, Glucose 295 H, Calcium 8.9, Total Creatine Kinase 136, C-React Prot Ext Range 15.40 H 07/17/22 07:03: WBC 12.1 H, RBC 4.19 L, Hgb 13.8, Hct 40.8, MCV 97.4 H, MCH 32.9 H, MCHC 33.8, RDW Std Deviation 50.7 H, RDW Coeff of Tye 14.2, Plt Count 238, MPV 9.3, Immature Gran % (Auto) 0.400, Neut % (Auto) 73.0 H, Lymph % (Auto) 16.8 L, [place] % (Auto) 6.5, Eos % (Auto) 2.9, Baso % (Auto) 0.4, Absolute Neuts (auto) 8.9 H, Absolute Lymphs (auto) 2.04, Nucleated RBC % 0 Physical Exam Narrative GENERAL: cooperative HEENT: Atraumatic; normocephalic EYES; Anicteric, Normal Conjunctiva NECK; supple, normal thyroid, RESPIRATORY: Diminished to auscultation CARDIOVASCULAR: Regular S1 S2, GI: soft, normoactive bowel sounds, : No Renal angle tenderness; EXTREMITIES: Left lower extremity wound MUSCULOSKELETAL: no muscle wasting NEURO: Awake; no lateralizing signs. SKIN: No Rash PSYCH; Flat affect Assessment & Plan Assessment/Plan (1) Wound infection: (2) Morbid obesity with BMI of 50.0-59.9, adult: (3) Debility: PLAN: Plan Patient is a 56-year-old gentleman presenting with left lower extremity wound following recent trauma. Admitted to regular nursing floor where patient is currently being managed 1. Left lower extremity wound infection ? Patient has been admitted to regular nursing floor started on Unasyn cultures sent consult placed to wound care nurse. 2. Hyperglycemia -Per patient he is not a known diabetic blood glucose level on admission was however 295. Hemoglobin A1c ordered to rule out diabetes mellitus type 2 patient hemoglobin A1c came back at 8.8 confirming patient's diagnosis of diabetes mellitus type 2. Patient started on long-acting insulin with Accu-Cheks before meals and at bedtime with sliding scale coverage. Consult placed to dietitian and diabetic education 3. Class III obesity with BMI of 53.0 ? Complicating care patient counseled on weight reduction 4. DVT prophylaxis ? Lovenox dose adjusted for weight Time spent in the patient's overall evaluation,decision-making process, review of diagnostic data, adjustment of management, discussion with other providers, nursing nursing and ancillary staff involved in patient's care documentation, 40 Minutes Charges/Coding Visit Charges Inpatient E&M: 34283 Subs Hosp L2
[2022-07-17 07:58] LABS: Hemoglobin A1c 8.8 % (3.8-5.6)
[2022-07-17 08:08] LABS: Anion Gap 5 (5-15); BUN 10 mg/dL (7-18); BUN/Creat Ratio 10.7 RATIO (10-20); Calcium,Total 8.8 mg/dL (8.5-10.1); Chloride 105 mmol/L (98-107); Creatinine, Serum 0.93 mg/dL (0.70-1.30); EST Glomerular Filtration Rate 89 mL/min (>60); Est Glom Filt Rate - Afr Amer 107 mL/min (>60); Estimated Creatinine Clearance 96.19 ml/min; Glucose 158 mg/dL (74-106); Potassium 4.1 mmol/L (3.5-5.1); Sodium Level 137 mmol/L (136-145)
--- NOTE | 2022-07-17 10:10 | CASEMGMT ---
Addendum entered by Argelia Aguayo 07/17/22 15:08: MINNA SOSA provided pt with a rx for BGM. Asked pt if someone could obtain prior to dc so teaching could be initiated on this. Pt began crying and states he has no one. Asked if his friend could and he stated he could not. Made pt aware that he can obtain after dc at the pharmacy. Spoke with offline cutter regarding outpt program for DM, she states she will give pt the card for this to see if he qualifies. TC to [facility], spoke with Theodore, will make referral to [facility]. She is aware pt is newly diagnosed diabetic and is needing a pcp. Order entered. Pt aware. Original Note: MINNA SOSA Assessment: Face to Face with pt for initial transition planning/care coordination assessment. MINNA SOSA introduced self and role at [facility], pt voices understanding and consents to assessment. Pt is A/O x4 and answers all questions appropriately at this time. Care providers, pharmacy, and demographics verified/updated. Pt sitting up in bed on RA, offline cutter was at bedside. Pt very distraught as he broke his phone. Discussed options for obtaining a new one. Pt has funds to do so but states he does not have transportation to go to the [facility]. Admitting Dx: debility PCP:Pt denies, pt declined local healthcare directory pamphlet initially. States they only give you bad news. Discussed with pt importance of having PCP. At end of assessment when pt stating items and services he would like he was made aware that he needs a PCP for this, he agreed to taking the healthcare directory list. Specialists:Pt denies. Preferred Pharmacy: [facility] Retail Insurance: [facility] Dual, ISATU Prescription Benefit: yes LNOK: Israel Wisdom, chao Living Arrangements: Pt lives alone in a ground level apt with 3 steps to enter with a rail. Pt reports he is I in ADL's and denies concerns at home but would be agreeable to having someone bathe him. Transportation: Pt does not drive. He uses [employer] for transportation. DME/HHC/SNF: Pt has a FWW that he uses outside of the home, does not use AD in the home. Pt has a neighbor Israel who assists hime and has been dressing his wound with a antibiotic ointment and a dry dressing. Pt denies hx of HHC and has been to the [facility]. Pt states no concerns with going home at time of dc. Pt aware that wound nurse who entered room will evaluate his wound and therapy will see him to make any recommendations on disposition. Pt does not have BGM and expresses just recently was told he is diabetic. Pt states no further concerns/needs. CM to follow. Advised pt to ask CM if any further question/concerns/needs arise, voices understanding. Pt Goal: Home Plan: TBD, pt will need BGM if going home.
--- NOTE | 2022-07-17 10:56 | WOUNDNOTE ---
skin photo: left lower leg
--- NOTE | 2022-07-17 10:57 | WOUNDNOTE ---
wound photo: left posterior lower leg
--- NOTE | 2022-07-17 10:57 | WOUNDNOTE ---
wound photo: left posterior lower leg
[2022-07-17] MEDS: Enoxaparin 40 MG/0.4 ML Syringe SC ×2 (10:59→21:44)
--- NOTE | 2022-07-17 14:18 | NURSING ---
Patient had nursing students today, this nurse was told that respirations were high 30 and 28. This nurse went in to re-assess, respirations were WNL both times for this nurse. Student states that patient was re adjusting in chair at the time. Patient does seem to have mild anxiety as well at this time.
--- NOTE | 2022-07-17 14:40 | NURSING ---
This RN is aware of Colette SHELBY's rounding, IV interventions, and shift assessment. Also aware of Vital Signs taken by Cass Palomares Pantograph Operator. This RN questioned respirations of 28 and 30 to Colette SHELBY. Colette said his respirations were not 28-30. This Rn went back and assessed pt and pts respirations 25-27min but shallow. Pt states he is anxious but denies SOB. No resp distress noted at this time. Will continue to monitor.
--- NOTE | 2022-07-17 14:49 | CASEMGMT ---
MINNA CM in to discuss ALEJANDRO form with patient. RN CM explained ALEJANDRO form, patient voiced understanding. Pt signed form and filed in chart. Pt provided with a copy of signed ALEJANDRO form. Patient had no further questions or concerns at this time.
[2022-07-17] MEDS: Juven (unflavored) Packet 1 PACKET PO (17:28)
[2022-07-18 03:30] VITALS: BP 126/67; PULSE 74; RESP 20; TEMP 37.1; O2SAT 94
--- NOTE | 2022-07-18 07:33 | PCM.PN.HOSP ---
Subjective Subjective Follow-up cellulitis of the lower extremity as well as new onset diabetes mellitus type 2 Objective Data Objective Data Vital Signs: Vital Signs Temp Pulse Resp BP Pulse Ox O2 Del Method 98.8 F 74 20 H 126/67 H 94 Room Air 07/18/22 03:30 07/18/22 03:30 07/18/22 03:30 07/18/22 03:30 07/18/22 03:30 07/18/22 04:00 Oxygen Delivery Method Room Air Weight: 177.1 kg Body Mass Index (BMI) 52.9 Intake & Output: Intake and Output for Last 24 Hours 07/16/22 07/17/22 07/18/22 23:59 23:59 23:59 Intake Total 1777 824 / 824 Balance 1777 824 / 824 Lab / Micro Data Result Diagrams: 07/17/22 07:03 07/17/22 07:03 Labs: Laboratory Results - last 24 hr 07/17/22 07:03: WBC 12.1 H, RBC 4.19 L, Hgb 13.8, Hct 40.8, MCV 97.4 H, MCH 32.9 H, MCHC 33.8, RDW Std Deviation 50.7 H, RDW Coeff of Tye 14.2, Plt Count 238, MPV 9.3, Immature Gran % (Auto) 0.400, Neut % (Auto) 73.0 H, Lymph % (Auto) 16.8 L, [place] % (Auto) 6.5, Eos % (Auto) 2.9, Baso % (Auto) 0.4, Absolute Neuts (auto) 8.9 H, Absolute Lymphs (auto) 2.04, Nucleated RBC % 0 07/17/22 07:03: Sodium 137, Potassium 4.1, Chloride 105, Carbon Dioxide 27.0, Anion Gap 5, BUN 10, Creatinine 0.93, Estim Creat Clear Calc 96.19, Est GFR (MDRD) Af Amer 107, Est GFR (MDRD) Non-Af 89, BUN/Creatinine Ratio 10.7, Glucose 158 H, Calcium 8.8 07/17/22 07:03: Hemoglobin A1c 8.8 H Physical Exam Narrative GENERAL: cooperative HEENT: Atraumatic; normocephalic EYES; Anicteric, Normal Conjunctiva NECK; supple, normal thyroid, RESPIRATORY: Diminished to auscultation CARDIOVASCULAR: Regular S1 S2, GI: soft, normoactive bowel sounds, : No Renal angle tenderness; EXTREMITIES: Left lower extremity wound MUSCULOSKELETAL: no muscle wasting NEURO: Awake; no lateralizing signs. SKIN: No Rash PSYCH; Flat affect Assessment & Plan Assessment/Plan (1) Wound infection: (2) Morbid obesity with BMI of 50.0-59.9, adult: (3) Debility: PLAN: Plan Patient is a 56-year-old gentleman presenting with left lower extremity wound following recent trauma. Admitted to regular nursing floor where patient is currently being managed 1. Left lower extremity wound infection ? Patient has been admitted to regular nursing floor started on Unasyn cultures sent consult placed to wound care nurse. 2. Hyperglycemia -Per patient he is not a known diabetic blood glucose level on admission was however 295. Hemoglobin A1c ordered to rule out diabetes mellitus type 2 patient hemoglobin A1c came back at 8.8 confirming patient's diagnosis of diabetes mellitus type 2. Patient started on long-acting insulin with Accu-Cheks before meals and at bedtime with sliding scale coverage. Consult placed to dietitian and diabetic education 3. Class III obesity with BMI of 53.0 ? Complicating care patient counseled on weight reduction 4. DVT prophylaxis ? Lovenox dose adjusted for weight Time spent in the patient's overall evaluation,decision-making process, review of diagnostic data, adjustment of management, discussion with other providers, nursing nursing and ancillary staff involved in patient's care documentation, 40 Minutes Charges/Coding Visit Charges Inpatient E&M: 62821 Subs Hosp L2
[2022-07-18 08:53] LABS: Absolute Lymphocyte Count 2.19 X10^3/uL (0.83-4.51); Absolute Neutrophil Count 4.6 X10^3/uL (2.0-7.7); Basophil# 0.04 X10^3/uL; Basophil% 0.5 % (0-1); Eosinophil# 0.33 X10^3/uL; Eosinophils% 4.2 % (0-5); Hematocrit 39.1 % (40-54); Hemoglobin 13.4 g/dL (13.0-16.5); Lymphocyte # 2.19 X10^3/ul (0.83-4.51); Mean Corp Hgb Conc 34.3 g/dL (32-36); Mean Corpuscular Hgb 33.4 pg (27.0-32.0); Mean Corpuscular Volume 97.5 fL (80-94); Mean Platelet Vol. 8.9 fl (6.2-12.0); Monocyte# 0.61 X10^3/uL; Monocyte% 7.8 % (0-10); NRBC Flagged by Analyzer 0 % (0-5); Neutrophil # 4.63 X10^3/uL (2.7-7.7); Neutrophil % 59.4 % (47-70); Platelet Count 194 K/mm3 (150-450); RBC Distribution Width CV 14.2 % (11.6-14.6); RBC Distribution Width SD 50.7 fl (35.1-43.9); Red Blood Count 4.01 M/mm3 (4.6-6.2); White Blood Count 7.8 K/mm3 (4.4-11.0)
[2022-07-18 09:22] LABS: Anion Gap 3 (5-15); BUN 13 mg/dL (7-18); BUN/Creat Ratio 13.5 RATIO (10-20); Calcium,Total 8.9 mg/dL (8.5-10.1); Chloride 106 mmol/L (98-107); Creatinine, Serum 0.96 mg/dL (0.70-1.30); EST Glomerular Filtration Rate 85 mL/min (>60); Est Glom Filt Rate - Afr Amer 103 mL/min (>60); Estimated Creatinine Clearance 93.18 ml/min; Glucose 148 mg/dL (74-106); Magnesium 1.9 mg/dL (1.6-2.6); Potassium 4.1 mmol/L (3.5-5.1); Sodium Level 139 mmol/L (136-145)
[2022-07-18 09:50] LABS: Bedside Glucose 231 mg/dL (74-106)
[2022-07-18] MEDS: Enoxaparin 40 MG/0.4 ML Syringe SC (10:11)
[2022-07-18] MEDS: Juven (unflavored) Packet 1 PACKET PO (10:12)
[2022-07-18] MEDS: Nystatin Powder 15gm Bottle 1 APPLIC TOPICAL (10:16)
[2022-07-18] MEDS: Insulin Glargine-YFGN 100 UNIT/ML Pen 10 UNIT SC (10:17)
[2022-07-18 10:19] VITALS: BP 111/71; PULSE 95; RESP 18; TEMP 36.7; O2SAT 92
[2022-07-18 12:05] LABS: Bedside Glucose 210 mg/dL (74-106)
[2022-07-18] MEDS: Insulin Lispro 100 UNIT/ML INSULN.PEN SC (12:46)
[2022-07-18 12:50] VITALS: O2SAT 92
--- NOTE | 2022-07-18 14:48 | DS.PCM_ITS ---
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 Comment: Reason for Consult:: left leg wound; and lymph edema Reason For Visit: DEBILITY Diagnosis Discharge Diagnosis (1) Wound infection: Status: Acute Code(s): T14.8XXA - Other injury of unspecified body region, initial encounter; L08.9 - Local infection of the skin and subcutaneous tissue, unspecified (2) Morbid obesity with BMI of 50.0-59.9, adult: Status: Acute Code(s): E66.01 - Morbid (severe) obesity due to excess calories; Z68.43 - Body mass index [BMI] 50.0-59.9, adult (3) Debility: Status: Acute Code(s): R53.81 - Other malaise Plan Patient is a 56-year-old gentleman presenting with left lower extremity wound following recent trauma. Admitted to regular nursing floor where patient is currently being managed 1. Left lower extremity wound infection ? Patient has been admitted to regular nursing floor started on Unasyn cultures sent consult placed to wound care nurse. -Patient was discharged home on a 7-day course of cefdinir 2. Hyperglycemia -Per patient he is not a known diabetic blood glucose level on admission was however 295. Hemoglobin A1c ordered to rule out diabetes mellitus type 2 patient hemoglobin A1c came back at 8.8 confirming patient's diagnosis of diabetes mellitus type 2. Patient started on long-acting insulin with Accu- Cheks before meals and at bedtime with sliding scale coverage. Consult placed to dietitian and diabetic education ? Prescription was written for metformin patient instructed to call one of the physicians on the list provided to establish follow-up with a primary care physician 3. Class III obesity with BMI of 53.0 ? Complicating care patient counseled on weight reduction 4. DVT prophylaxis ? Lovenox dose adjusted for weight Time spent in the patient's overall evaluation,decision-making process, review of diagnostic data, adjustment of management, discussion with other providers, nursing nursing and ancillary staff involved in patient's care documentation, 40 Minutes Medications at Discharge Home Medications cefdinir 300 mg capsule 300 mg PO BID #14 caps 07/18/22 metformin 1,000 mg tablet 1,000 mg PO BID #120 tabs 07/18/22 Hospital Course Summary of Care Provided Minutes Spent on Discharge: 40 Physical Exam Narrative GENERAL: cooperative HEENT: Atraumatic; normocephalic EYES; Anicteric, Normal Conjunctiva NECK; supple, normal thyroid, RESPIRATORY: Diminished to auscultation CARDIOVASCULAR: Regular S1 S2, GI: soft, normoactive bowel sounds, : No Renal angle tenderness; EXTREMITIES: Left lower extremity wound MUSCULOSKELETAL: no muscle wasting NEURO: Awake; no lateralizing signs. SKIN: No Rash PSYCH; Flat affect Weight / BMI Weight Weight: 177.1 kg Body Mass Index (BMI) 52.9 ABG / Lab / Microbiology Data Result Diagrams: 07/18/22 08:44 07/18/22 08:44 Laboratory: Laboratory Results - last 24 hr 07/18/22 08:44: WBC 7.8, RBC 4.01 L, Hgb 13.4, Hct 39.1 L, MCV 97.5 H, MCH 33.4 H, MCHC 34.3, RDW Std Deviation 50.7 H, RDW Coeff of Tye 14.2, Plt Count 194, MPV 8.9, Immature Gran % (Auto) 0.100, Neut % (Auto) 59.4, Lymph % (Auto) 28.0, Falls % (Auto) 7.8, Eos % (Auto) 4.2, Baso % (Auto) 0.5, Absolute Neuts (auto) 4.6, Absolute Lymphs (auto) 2.19, Nucleated RBC % 0 07/18/22 08:44: Sodium 139, Potassium 4.1, Chloride 106, Carbon Dioxide 30.0, A nion Gap 3 L, BUN 13, Creatinine 0.96, Estim Creat Clear Calc 93.18, Est GFR (MDRD) Af Amer 103, Est GFR (MDRD) Non-Af 85, BUN/Creatinine Ratio 13.5, Glucose 148 H, Calcium 8.9, Magnesium 1.9 07/18/22 09:26: POC Glucose 231 H 07/18/22 11:44: POC Glucose 210 H D/C Instructions Discharge Diet: 1800 Calorie Control Diet Discharge Activity: Return to Normal Activity Call your doctor if you observe: Fever of 101 or Higher, Shortness of breath, Fainting spells and Chest pain Meaningful Use Info Meaningful Use Diagnoses (Choose all that apply): None applicable Discharge Plan Admission Admit Date/Time: 07/17/22 02:34 Attending Provider: Pascual Horan Primary Care Provider: Care Physician,No Primary Consulting Providers: Blu Maeyr Discharge Orders/Prescriptions Prescriptions: New cefdinir 300 mg capsule 300 mg PO BID Qty: 14 0RF metformin 1,000 mg tablet 1,000 mg PO BID Qty: 120 0RF Referrals / Follow Up: Care Physician,No Primary [Primary Care Provider] - (Patient to call for PCP he was given the referral list) Disposition Disposition (needs filled in before D/C Order can be placed): Home, Self Care Charges/Coding Visit Charges Inpatient E&M: 61228 Disch Hosp >30min
--- NOTE | 2022-07-18 15:21 | CASEMGMT ---
Notified Serena at [facility] that pt will dc today.
--- NOTE | 2022-07-18 15:35 | CASEMGMT ---
Addendum entered by Argelia Aguayo 07/18/22 16:10: MINNA SOSA in to pt room, pt is on the phone having an intense discussion with [employer] regarding his phone. Updated nurse who will notify pt of dc plan with [facility]. Original Note: MINNA SOSA made aware pt will dc today and pt does not have transportation home. MINNA SOSA in to pt room, pt states he has no one to take him home. He states his friend does not have a vehicle. He states he has no money for a taxi. He is agreeable to the hospital van but they are done for the day. Pt is agreeable to a taxi. Charge nurse got this pre approved but legal administrative secretary unable to secure service. Pt [facility], plan for [facility] to take pt home.
--- NOTE | 2022-07-18 15:46 | PHA.DC.MR ---
Pharmacy Service has performed discharge medication reconciliation for this patient. The patient's discharge medication list was reviewed for discrepancies and discrepancies were resolved. Home Medications cefdinir 300 mg capsule 300 mg PO BID #14 caps 07/18/22 metformin 1,000 mg tablet 1,000 mg PO BID #120 tabs 07/18/22
--- NOTE | 2022-07-18 16:05 | PCA ---
[facility] transportation arranged for 1999, via cot. rn and pt aware.
--- NOTE | 2022-07-18 16:42 | CASEMGMT ---
MINNA CM: Contacted Shira Hartmann at [facility] [employer] regarding ride assistance for patient to return home. Shira stated [facility] was not working today and [facility] was reportedly booked. Shira contacted [facility] transportation and Hitesh with [facility] is available to transport pt home at this time. This arrangement was communicated to Luis RN. Sowmya Adamson RN CM
--- NOTE | 2022-07-18 18:08 | NURSING ---
Patient was to be transported via [place] transportation, but when getting patient ready to leave it was found that his clothes were soaked in urine. We attempted to put the patient in 3x hospital pants but they did not fit. Davina from called back and notified of same. Patient will be transported via [facility] by [facility] at 1999 as previously scheduled.
[2022-07-18 19:08] VITALS: BP 148/79; PULSE 84; RESP 18; TEMP 36.6; O2SAT 92
--- NOTE | 2022-07-23 13:46 | CCN.REFER ---
[facility] [employer] and SW visit to home. Patient compliant with Metformin and ATB. Home had strong foul odor. Dressing to left leg was intact, but it was the same dressing from inhouse. States unable to change own dressing, and he has no help in home. [facility] is unable to perform wound care. However, RN advised [facility] [employer] to remove dressing this one time to assess and report to new PCP. Wound is open and large amount of drainage noted. No wound supplies in home. Patient does not shower/Bath.. There is no room for shower chair. There is one bar in bath tub. Patient is fearful of falling, so he does not bathe or shower. There is no washer/dryer in home, and it is too taxing for patient to get to laundry mat. Patient washes clothes in sink at home. Clothing was dirty. left with [facility]. Primary goal is to get established with PCP, so we can get order for [facility] wound care and [facility] [employer]UC[facility] [employer] to help bath. There is no glucometer in patient's home, and there is no RX for one. [facility] will start monitoring blood sugars once patient obtains glucometer..RN questioning if SW can refer patient for possible Waiver Program to eventually transition to [place] where needs could be met. See [facility] nursing notes in [facility] chart for further updates.
== END 2022-07-18 21:05 | disposition home or self-care (01) ==
LOC: ED 07-17 03:04 → MS3 07-17 03:07
PROVIDERS: Admitting Provider Hospitalist; Emergency Provider Emergency Medicine; Visit Provider Internal Medicine
DX: L08.9 Local infection of the skin and subcutaneous tissue, unspecified (principal); E11.622 Type 2 diabetes mellitus with other skin ulcer; L97.229 Non-pressure chronic ulcer of left calf with unspecified severity; E11.65 Type 2 diabetes mellitus with hyperglycemia; E66.01 Morbid (severe) obesity due to excess calories; Z68.43 Body mass index [BMI] 50.0-59.9, adult; R53.81 Other malaise; I87.8 Other specified disorders of veins
CPT/HCPCS: 36415; 80048; 82550; 82962; 83036; 83735; 85025; 85652; 86140; 96365; 96366; 96372; 97162; 97166; 97802; 99221; 99285; J7050; A4216; G0378; J0295

== ENCOUNTER 2022-09-21 11:30 | Outpatient (RCR) | payer MEDICARE, MEDICAID, SELFPAY ==
[2022-08-31 13:56] VITALS: BP 169/102; PULSE 87; TEMP 35.5
--- NOTE | 2022-08-31 17:13 | HP.PCM_ITS ---
History of Present Illness Date of Service: 08/31/22 Chief Complaint: Left lower leg wound History of Wound: Patient presents to the wound care center today for evaluation of left lower leg wound as referred by his PCP Dr. Arciniega. Patient reports that this wound started at the end of June secondary to likely minor trauma. He states that this wound started off much smaller but then just continued to enlarge. He eventually presented to the ED with this wound where he was subsequently admitted for cellulitis and started on IV antibiotics. He was discharged a couple days later with a course of cefdinir. During his hospitalization, he was diagnosed with type 2 diabetes. He was started on me tformin and reports his sugars at home have been very good, usually in the low 100s. He does have notable lipodermatosclerosis/chronic venous stasis skin changes which he reports have been present for many years. He denies any prior history of wounds. His legs do tend to swell, but he has never worn compression stockings. He denies any history of claudication type symptoms, prior endovascular interventions. Other than diabetes, no significant past medical history. At home, he has been caring for this wound by washing with soap and water and wrapping and dry sterile dressing. In the process of obtaining home health. [facility] Medical History (Updated 08/31/22 @ 17:26 by KITA Soto) Hives Kidney stones Morbid obesity Pneumonia Home Medications escitalopram oxalate 10 mg tablet (Lexapro) 10 mg PO DAILY #30 tabs 08/15/22 [Rx Last Taken Unknown] metformin 1,000 mg tablet 1,000 mg PO BID #60 tabs 08/15/22 [Rx Last Taken Unknown] Allergy/AdvReac Type Severity Reaction Status Date / Time No Known Allergies Allergy Verified 08/15/22 13:26 Family History (Updated 08/15/22 @ 13:[address] Queenie Arciniega MD) Mother Cancer lung Father Cancer lung Grandmother Cancer Grandmother Diabetes Grandfather Heart disease Surgical History (Updated 08/15/22 @ 13:[address] Queenie Arciniega MD) H/O lithotripsy History of appendectomy History of tonsillectomy Social History (Updated 08/15/22 @ 13:[address] 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 Smoking Status: Never smoker Electronic Cigarette Use: not used alcohol intake: never substance use type: does not use do you feel safe at home: Yes ROS Constitutional Constitutional: Denies change in weight, chills, difficulty sleeping, fatigue, fever(s), frequent falls, lethargy, night sweats or weakness Eyes Eyes: Denies blindness, blurry vision, change in vision, eye pain or ptosis ENT HEENT: Denies abnormal hearing, change in voice, hearing loss, loss taste/smell or vertigo Cardiovascular Cardiovascular: Reports leg edema; Denies abdominal pain, chest pain, claudication, cold extremities, cyanosis, diaphoresis, dyspnea, dyspnea on exertion, fatigue, hypertension, irregular heart rhythm, leg ulcers, orthopnea, palpitations, radiating jaw, neck or arm pain or syncope Respiratory/Chest Respiratory/Chest: Denies cough, dyspnea, hemoptysis, nail bed cyanosis, jamilah- oral cyanosis, portable oxygen @ home, productive cough or wheezing Gastrointestinal Gastrointestinal: Denies abdominal pain, change in bowel habits, change in stool character, coffee ground emesis, melena, rectal bleeding or weight changes Genitourinary Genitourinary: Denies abdominal discomfort, burning urination, difficulty urinating or flank pain Musculoskeletal Musculoskeletal: Denies abnormal gait, difficulty walking, joint swelling, muscle cramps, muscle weakness or numbness Integumentary Integumentary: Reports wounds; Denies change in pigmentation, changing lesions, erythema, lesions, rash, skin ulcer or unusual bruising Neurologic Neurologic: Denies abnormal gait, abnormal movements, abnormal speech, behavior changes, frequent falls, syncope, tingling or weakness Psychiatric Psychiatric: Denies behavioral changes, cognitive impairment or depression Endocrine Endocrinology: Denies change in body appearance, cold intolerance, excessive sweating, flushing, heat intolerance, palpitations, polydipsia, polyphagia or polyuria Hematologic/Lymphatic Hematologic/Lymphatic: Denies anemia, easy bleeding, easy bruising or lymphadenopathy Allergic/Immunologic Allergic/Immunologic: Denies seasonal rhinorrhea, throat swelling, tongue swelling, hives or asthma Vital Signs Vital Signs Vital Signs: 08/31/22 13:56 Temperature 95.9 F L Temperature Source Temporal Pulse Rate 87 Blood Pressure 169/102 H Blood Pressure Mean 124 Blood Pressure Source Monitor Physical Exam Const alert, oriented x3 and no apparent distress General Appearance: cooperative, comfortable and anxious HEENT normocephalic, head/scalp atraumatic, hearing grossly normal bilaterally, external ears normal and external nose normal Eyes EOMs intact bilaterally General Eye: normal appearance of both eyes Resp normal respiratory effort, normal air movement, no retractions, no use of accessory muscles and clear to auscultation bilaterally Effort and Inspection: able to speak in complete sentences and symmetric chest movement; Negative for labored, stridor or audible wheezes Cardio regular rate and regular rhythm Peripheral Pulses: pulses 2+ throughout Extremity Extremity Narrative: Bilateral lower extremities with significant edema and venous stasis skin changes. Palpable DP/PT pulses bilaterally. Wound as described below. Skin Wounds: wounds noted Wound Narrative: Large, superficial wound with irregular and somewhat macerated borders on left lower extremity. Minimal slough in wound bed. No necrotic tissue noted. Mild surrounding erythema. No significant tenderness to palpation, fluctuance/induration, foul-smelling drainage. Neuro oriented x3, CN's II-XII intact bilaterally, moves all extremities, no focal motor deficits and no sensory deficits noted Psych mental status grossly normal, cooperative, affect normal, speech normal and activity/motor behavior normal Debridement Note Debridement Note Wound debrided: Left lower leg Laterality: Left Type of Debridement: Excisional debridement Anesthesia Used: 5% Lidocaine Gel Depth: Down to and including healthy tissue Percentage of wound debrided: 100 Instrument Used: 5mm curette Amount of bleeding with debridement: Mild Bleeding Controlled with: Pressure Patient tolerated procedure: Patient tolerated procedure well Post-Debridement Measurements and Additional Note: Post-Debridement Measurements/Treatment - Nurse 1 - General Ulcer Assessment Start: 08/31/22 13:26 Freq: Status: Active Protocol: NORMA Activity Type Activity Date Activity User E-sign Co-sign Detail Recorded Client Recorded Date Recorded By Document 08/31/22 13:56 HITESH [id number] 08/31/22 14:01 HITESH 08/31/22 13:56 - Today's Visit Information Type of service Initial Visit Arrival Mode Ambulatory, Walker Patient Identification Verified (Name & Yes ) Patient Requires Transmission-Based No Precautions Safety Precautions NA Vital Signs Temperature (97.8 F-99.1 F) 95.9 F L Temperature Source Temporal Pulse Rate (60-100) 87 Pulse Location Monitor Blood Pressure (90/60-120/80) 169/102 H Blood Pressure Mean 124 Source Monitor History Since Last Visit- (Skip if this is Patient's initial visit) Left Footwear Regular Shoe Right Footwear Regular Shoe Pain Scale: 0-10 Numeric Is Patient Pain Free? Yes WC - Nurse 1 - General Ulcer Measurement Start: 08/31/22 13:26 Freq: Status: Active Protocol: Activity Type Activity Date Activity User E-sign Co-sign Detail Recorded Client Recorded Date Recorded By Document 08/31/22 13:56 AK [id number] 08/31/22 14:01 AK 08/31/22 13:56 Wound Center Nurse 1 #1 L lateral leg -Combined with other wound No -Current Size (cm) - Length 14 -Current Size (cm) - Width 10.6 -Current Size (cm) - Depth 0.1 -Total Square Cm 148.4 -Date of Last Picture (Recall this 08/31/22 field) -Photo Taken Yes -Tunneling No -Undermining/Tunneling No -Circular Undermining No -Change in Wound Grade/Stage No -Exudate Amt Large -Exudate Type Serosanguineous -Wound Margin Distinct, Outline Attached -Granulation Amt Large (67-100%) -Granulation Quality Red -Slough/Fibrin Yes -Necrosis Amt Small (1-33%) -Necrotic Tissue Type Adherent Slough -Structure Exposed N/A -Texture (Jamilah-wound Skin Appearance) No Abnormality, Assessed -Moisture (Jamilah-wound Skin Appearance) No Abnormality, Assessed -Color (Jamilah-wound Skin Appearance) Assessed, Hemosiderin Staining -Temperature (Jamilah-wound Skin No Abnormality Appearance) (Pt Warm) -Tenderness on Palpation (Jamilah-wound No Skin Appearance) -Ulcer Cleansing Soap and Water -Foul Odor after Cleansing No -Anesthetic Used 5% Lidocaine Gel Lower Limb Edema Present No Point of measurement (cm from the medial 51 instep) Right Ankle (cm) 27 Left Calf (cm) 53 Left Ankle (cm) 29 WC - Nurse 2 - General Ulcer CM Notes Start: 08/31/22 13:26 Freq: Status: Active Protocol: Activity Type Activity Date Activity User E-sign Co-sign Detail Recorded Client Recorded Date Recorded By Document 08/31/22 15:01 PL [id number] 08/31/22 15:03 PL 08/31/22 15:01 Wound Center Nurse 2 #1 L lateral leg -Time 13:58 -Correct Patient Yes -Correct Side, Site, Position Yes -Correct Procedure Yes -Procedure Performed Yes -Type of Procedure Debridement -Clinical Debridement Subcutaneous -Tissue Removed Subcutaneous -Post Debridement (cm) - Length 13.0 -Post Debridement (cm) - Width 14.0 -Post Debridement (cm) - Depth 0.2 -Total Square (Post) (cm) 182.00 -Area of Debridement (cm) - Length 13.0 -Area of Debridement (cm) - Width 14.0 -Total Square (Area) (cm) 182.00 -Tunneling No -Undermining/Tunneling No -Circular Undermining No -Wound/Ulcer Outcome Not Healed -Ulcer Cleansing Rinsed/ Irrigated with Saline -Foul Odor after Cleansing No -Bioengineered Tissue No -Bleeding Controlled with Pressure -Treatment Response Procedure Tolerated Well -Debridement - Subq, 1st 20sq cm Yes -Debridement, SubQ, ea addt'l 20sq cm 9 or part thereof Pain Scale: 0-10 Numeric Is Patient Pain Free? Yes - Nurse 3 - General Ulcer D/C NN Start: 08/31/22 13:26 Freq: Status: Active Protocol: Activity Type Activity Date Activity User E-sign Co-sign Detail Recorded Client Recorded Date Recorded By Document 08/31/22 14:26 [id number] 08/31/22 14:28 08/31/22 14:26 Wound Care Center Nurse 3 #1 L lateral leg -Ulcer Cleansing Wound Cleanser -Primary Dressing Applied Fibracol Plus 4x4 -Other Dressing abd pad, kerlix -Primary Dressing Covered/Secured with Secured with Tape -Fibracol Plus 4x4 2 Right -Tubular Bandage Single Layer -Size of Tubigrip Used Size E -Size E ($) 1 Left -Tubular Bandage Single Layer -Size of Tubigrip Used Size E -Size E ($) 1 Treatment Response Procedure Tolerated Well Pain Scale: 0-10 Numeric Is Patient Pain Free? Yes Teaching: Wound Center Dressing Your Wound -Person Taught Patient -Teaching Method Discussion, Demonstration -Response to teaching Reinforcement needed Compression Wraps & Stockings -Person Taught Patient -Teaching Method Discussion, Demonstration -Response to teaching Verbalize understanding WC - Visit Discharge Discharge Condition Stable Ambulatory Status Walker Transportation Private Auto Medication Reconcilliation completed & No provided to patient/care provider Clinical Summary of Care Provided Yes Charges/Coding Wound Center CF Procedures [id number]: [id number] RMVL DEVITAL TIS 20 CM/< Multi Select Codes Wound Center CF Procedures [id number]: [id number] RMVL DEVITAL TIS 20 CM/< Assessment/Plan Assessment/Plan (1) Chronic ulcer of left lower leg: CODE(S): L97.929 - Non-pressure chronic ulcer of unspecified part of left lower leg with unspecified severity PLAN: Patient presents with with large superficial wound to left lower extremity which appears to be secondary to chronic venous insufficiency. Will apply fibracol, wrap with Kerlix. Apply Tubigrip's bilaterally for compression. Instructed patient to elevate legs when resting. Did obtain cultures today due to overall appearance of wound and mild surrounding erythema. Will prescribe antibiotics as indicated. Encouraged patient to keep up the good work with respect to managing his blood sugars. Increase protein in his diet to promote healing. Patient will return to clinic in 1 week or sooner as needed.
[2022-09-07 13:08] VITALS: BP 158/91; PULSE 112; RESP 18
--- NOTE | 2022-09-07 13:55 | PN.PCM_ITS ---
History of Present Illness Date of Service: 09/07/22 Chief Complaint: Left lower leg wound History of Wound: Patient presents to the wound care center today for evaluation of left lower leg wound as referred by his PCP Dr. Arciniega. Patient reports that this wound started at the end of June secondary to likely minor trauma. He states that this wound started off much smaller but then just continued to enlarge. He eventually presented to the ED with this wound where he was subsequently admitted for cellulitis and started on IV antibiotics. He was discharged a couple days later with a course of cefdinir. During his hospitalization, he was diagnosed with type 2 diabetes. He was started on me tformin and reports his sugars at home have been very good, usually in the low 100s. He does have notable lipodermatosclerosis/chronic venous stasis skin changes which he reports have been present for many years. He denies any prior history of wounds. His legs do tend to swell, but he has never worn compression stockings. He denies any history of claudication type symptoms, prior endovascular interventions. Other than diabetes, no significant past medical history. At home, he has been caring for this wound by washing with soap and water and wrapping and dry sterile dressing. In the process of obtaining home health. Subjective Subjective He has been doing well with dressing changes at home. 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 He is maintaining good BP control. He is tolerating compression with tubigrips and wearing consistently. Does report moderate amount of clear-yellow drainage. He denies fevers/chills, nausea/vomiting, new or worsened pain/swelling/erythema. No new wounds. Objective Data Objective Data Vital Signs: Vital Signs Temp Pulse Resp BP O2 Del Method 95.9 F L 112 H 18 158/91 H Room Air 08/31/22 13:56 09/07/22 13:08 09/07/22 13:08 09/07/22 13:08 09/07/22 13:08 Oxygen Delivery Method Room Air Lab / Micro Data Micro: Microbiology 08/31/22 14:10 Wound Abcess - Leg, Left Gram Stain - Final 08/31/22 14:10 Wound Abcess - Leg, Left Wound Culture - Final Staphylococcus aureus Pseudomonas aeruginosa 08/31/22 14:10 Wound Abcess - Leg, Left Anaerobic Culture - Final No anaerobic bacteria isolated. Charges/Coding Wound Center CF Procedures [id number]: [id number] RMVL DEVITAL TIS 20 CM/< Multi Select Codes Wound Center CF Procedures [id number]: [id number] RMVL DEVITAL TIS 20 CM/< Physical Exam Const alert, oriented x3 and no apparent distress General Appearance: cooperative, comfortable and anxious HEENT normocephalic, head/scalp atraumatic, hearing grossly normal bilaterally, external ears normal and external nose normal Eyes EOMs intact bilaterally General Eye: normal appearance of both eyes Resp normal respiratory effort, normal air movement, no retractions, no use of accessory muscles and clear to auscultation bilaterally Effort and Inspection: able to speak in complete sentences and symmetric chest movement; Negative for labored, stridor or audible wheezes Cardio regular rate and regular rhythm Peripheral Pulses: pulses 2+ throughout Extremity Extremity Narrative: Bilateral lower extremities with significant edema and venous stasis skin changes. Palpable DP/PT pulses bilaterally. Wound as described below. Skin Wounds: wounds noted Wound Narrative: Large, superficial wound with irregular and somewhat macerated borders on left lower extremity. Minimal slough in wound bed. No necrotic tissue noted. Mild surrounding erythema. No significant tenderness to palpation, fluctuance/induration, foul-smelling drainage. Neuro oriented x3, CN's II-XII intact bilaterally, moves all extremities, no focal motor deficits and no sensory deficits noted Psych mental status grossly normal, cooperative, affect normal, speech normal and activity/motor behavior normal Debridement Note Debridement Note Wound debrided: Left lower leg Laterality: Left Type of Debridement: Excisional debridement Anesthesia Used: 5% Lidocaine Gel Depth: Down to and including healthy tissue Percentage of wound debrided: 100 Instrument Used: 5mm curette Amount of bleeding with debridement: Mild Bleeding Controlled with: Pressure Patient tolerated procedure: Patient tolerated procedure well Post-Debridement Measurements and Additional Note: Post-Debridement Measurements/Treatment WC - Nurse 1 - General Ulcer Assessment Start: 08/31/22 13:26 Freq: Status: Active Protocol: NORMA Activity Type Activity Date Activity User E-sign Co-sign Detail Recorded Client Recorded Date Recorded By Document 08/31/22 13:56 AK [id number] 08/31/22 14:01 AK Document 09/07/22 13:08 [facility] [id number] 09/07/22 13:21 [facility] 08/31/22 09/07/22 13:56 13:08 - Today's Visit Information Type of service Initial Visit Follow-up Visit (Physician/[employer] ) Arrival Mode Ambulatory, Ambulatory, Walker Walker Transfer Assistance None Patient Identification Verified (Name & Yes Yes ) Patient Requires Transmission-Based No No Precautions Safety Precautions NA Vital Signs Temperature (97.8 F-99.1 F) 95.9 F L Temperature Source Temporal Pulse Rate (60-100) 87 112 H Pulse Location Monitor Monitor Respiratory Rate (12-18) 18 Respiratory rate source Observation Oxygen Delivery Method Room Air Blood Pressure (90/60-120/80) 169/102 H 158/91 H Blood Pressure Mean (mm Hg) 124 113 Source Monitor Monitor Position Sitting Blood Pressure Location Left Arm History Since Last Visit- (Skip if this is Patient's initial visit) Have you changed medications since your No last visit? Any new allergies or adverse reactions No Had a fall/change in ADL's that may No increase risk of falls Signs or symptoms of abuse and/or No neglect since last visit Have you been in the hospital since your No last visit? Has dressing in place as prescribed Yes Has compression in place as prescribed Yes Has offloadiing in place as prescribed N/A Experienced any changes in pain level or No management Left Footwear Regular Shoe Regular Shoe Right Footwear Regular Shoe Regular Shoe Pain Scale: 0-10 Numeric Is Patient Pain Free? Yes Yes - Nurse 1 - General Ulcer Measurement Start: 08/31/22 13:26 Freq: Status: Active Protocol: Activity Type Activity Date Activity User E-sign Co-sign Detail Recorded Client Recorded Date Recorded By Document 08/31/22 13:56 MI [id number] 08/31/22 14:01 MI Document 09/07/22 13:08 [facility] [id number] 09/07/22 13:21 [facility] 08/31/22 09/07/22 13:56 13:08 Wound Center Nurse 1 #1 L lateral leg -Combined with other wound No No -Current Size (cm) - Length 14 8.3 -Current Size (cm) - Width 10.6 11 -Current Size (cm) - Depth 0.1 0.1 -Total Square Cm 148.4 91.3 -Date of Last Picture (Recall this 08/31/22 09/07/22 field) -Photo Taken Yes Yes -Epithelialization Small 1-33% -Tunneling No No -Undermining/Tunneling No No -Circular Undermining No No -Change in Wound Grade/Stage No -Exudate Amt Large Large -Exudate Type Serosanguineous Sanguineous -Wound Margin Distinct, Distinct, Outline Outline Attached Attached -Granulation Amt Large (67-100%) Large (67-100%) -Granulation Quality Red Red -Slough/Fibrin Yes Yes -Necrosis Amt Small (1-33%) Small (1-33%) -Necrotic Tissue Type Adherent Slough Adherent Slough -Structure Exposed N/A -Texture (Jamilah-wound Skin Appearance) No Abnormality, Assessed, Assessed Scarring -Moisture (Jamilah-wound Skin Appearance) No Abnormality, Assessed Assessed -Color (Jamilah-wound Skin Appearance) Assessed, Assessed, Hemosiderin Hemosiderin Staining Staining -Temperature (Jamilah-wound Skin No Abnormality No Abnormality Appearance) (Pt Warm) (Pt Warm) -Tenderness on Palpation (Jamilah-wound No No Skin Appearance) -Ulcer Cleansing Soap and Water Soap and Water -Foul Odor after Cleansing No No -Anesthetic Used 5% Lidocaine 4% Lidocaine Gel Solution Lower Limb Edema Present No Point of measurement (cm from the medial 51 instep) Right Ankle (cm) 27 Left Calf (cm) 53 Left Ankle (cm) 29 WC - Nurse 2 - General Ulcer CM Notes Start: 08/31/22 13:26 Freq: Status: Active Protocol: Activity Type Activity Date Activity User E-sign Co-sign Detail Recorded Client Recorded Date Recorded By Document 08/31/22 15:01 JSOE [id number] 08/31/22 15:03 PL 08/31/22 15:01 Wound Center Nurse 2 -Time 13:58 -Correct Patient Yes -Correct Side, Site, Position Yes -Correct Procedure Yes -Procedure Performed Yes -Type of Procedure Debridement -Clinical Debridement Subcutaneous -Tissue Removed Subcutaneous -Post Debridement (cm) - Length 13.0 -Post Debridement (cm) - Width 14.0 -Post Debridement (cm) - Depth 0.2 -Total Square (Post) (cm) 182.00 -Area of Debridement (cm) - Length 13.0 -Area of Debridement (cm) - Width 14.0 -Total Square (Area) (cm) 182.00 -Tunneling No -Undermining/Tunneling No -Circular Undermining No -Wound/Ulcer Outcome Not Healed -Ulcer Cleansing Rinsed/ Irrigated with Saline -Foul Odor after Cleansing No -Bioengineered Tissue No -Bleeding Controlled with Pressure -Treatment Response Procedure Tolerated Well -Debridement - Subq, 1st 20sq cm Yes -Debridement, SubQ, ea addt'l 20sq cm 9 or part thereof Pain Scale: 0-10 Numeric Is Patient Pain Free? Yes WC - Nurse 3 - General Ulcer D/C NN Start: 08/31/22 13:26 Freq: Status: Active Protocol: Activity Type Activity Date Activity User E-sign Co-sign Detail Recorded Client Recorded Date Recorded By Document 08/31/22 14:26 RB [id number] 08/31/22 14:28 RB Document 09/07/22 13:47 MT [id number] 09/07/22 13:49 MT Edit Result 09/07/22 13:47 MT (1) [id number] 09/07/22 13:49 MT (1) #1 L lateral leg - Primary Dressing Applied Fibracol Plus 4x4 => Fibracol Plus 4x4, => Optilok 8x12 - Optilok 8x12 => 1 08/31/22 09/07/22 14:26 13:47 Wound Care Center Nurse 3 #1 L lateral leg -Ulcer Cleansing Wound Cleanser Soap and Water -Primary Dressing Applied Fibracol Plus Fibracol Plus 4x4 4x4,Optilok 8x12 -Other Dressing abd pad, kerlix -Primary Dressing Covered/Secured with Secured with Dry Gauze & Tape Roll Gauze, Secured with Tape -Fibracol Plus 4x4 2 2 -Optilok 8x12 1 Right -Tubular Bandage Single Layer Single Layer -Size of Tubigrip Used Size E Size F -Size E ($) 1 -Size F ($) 1 Left -Tubular Bandage Single Layer Single Layer -Size of Tubigrip Used Size E Size F -Size E ($) 1 -Size F ($) 1 Treatment Response Procedure Tolerated Well Pain Scale: 0-10 Numeric Is Patient Pain Free? Yes Yes Teaching: Wound Center Dressing Your Wound -Person Taught Patient -Teaching Method Discussion, Demonstration -Response to teaching Reinforcement needed Compression Wraps & Stockings -Person Taught Patient -Teaching Method Discussion, Demonstration -Response to teaching Verbalize understanding WC - Visit Discharge Discharge Condition Stable Stable Ambulatory Status Walker Ambulatory, Walker Transportation Private Auto Private Auto Medication Reconcilliation completed & No No provided to patient/care provider Clinical Summary of Care Provided Yes Yes Assessment/Plan Assessment/Plan (1) Chronic ulcer of left lower leg: CODE(S): L97.929 - Non-pressure chronic ulcer of unspecified part of left lower leg with unspecified severity PLAN: Wound with improved appearance and significant reduction in size from last visit. Will continue with primary dressing of fibracol, change secondary to super absorber to better manage drainage. Continue tubigrips bilaterally for compression. Elevate legs when resting. Cultures revealed staph aureus and pseudomonas aeruginosa. Started Cipro 750 BID x 10 days earlier this week. Continue to completion. Encouraged patient to keep up the good work with respect to managing his blood sugars. Increase protein in his diet to promote healing. Patient will return to clinic in 1 week or sooner as needed.
[2022-09-14 11:10] VITALS: BP 157/94; PULSE 86; TEMP 35.8
--- NOTE | 2022-09-14 11:54 | PN.PCM_ITS ---
History of Present Illness Date of Service: 09/14/22 Chief Complaint: Left lower leg wound History of Wound: Patient presents to the wound care center today for evaluation of left lower leg wound as referred by his PCP Dr. Arciniega. Patient reports that this wound started at the end of June secondary to likely minor trauma. He states that this wound started off much smaller but then just continued to enlarge. He eventually presented to the ED with this wound where he was subsequently admitted for cellulitis and started on IV antibiotics. He was discharged a couple days later with a course of cefdinir. During his hospitalization, he was diagnosed with type 2 diabetes. He was started on me tformin and reports his sugars at home have been very good, usually in the low 100s. He does have notable lipodermatosclerosis/chronic venous stasis skin changes which he reports have been present for many years. He denies any prior history of wounds. His legs do tend to swell, but he has never worn compression stockings. He denies any history of claudication type symptoms, prior endovascular interventions. Other than diabetes, no significant past medical history. At home, he has been caring for this wound by washing with soap and water and wrapping and dry sterile dressing. In the process of obtaining home health. Subjective Subjective He has been doing very well with dressing changes at home. He just finished ant ibiotics. He is keeping his blood sugar under good control. He is elevating his legs often. He denies fevers/chills, nausea/vomiting, new or worsened pain/swelling/erythema. No new wounds. Unfortunately, continue to have difficulty setting up HH for this patient. Objective Data Objective Data Vital Signs: Vital Signs Temp Pulse Resp BP O2 Del Method 96.4 F L 86 18 157/94 H Room Air 09/14/22 11:10 09/14/22 11:10 09/07/22 13:08 09/14/22 11:10 09/07/22 13:08 Oxygen Delivery Method Room Air Lab / Micro Data Micro: Microbiology 08/31/22 14:10 Wound Abcess - Leg, Left Gram Stain - Final 08/31/22 14:10 Wound Abcess - Leg, Left Wound Culture - Final Staphylococcus aureus Pseudomonas aeruginosa 08/31/22 14:10 Wound Abcess - Leg, Left Anaerobic Culture - Final No anaerobic bacteria isolated. Charges/Coding Wound Center CF Procedures [id number]: [id number] RMVL DEVITAL TIS 20 CM/< Multi Select Codes Wound Center CF Procedures [id number]: [id number] RMVL DEVITAL TIS 20 CM/< Physical Exam Const alert, oriented x3 and no apparent distress General Appearance: cooperative, comfortable and anxious HEENT normocephalic, head/scalp atraumatic, hearing grossly normal bilaterally, external ears normal and external nose normal Eyes EOMs intact bilaterally General Eye: normal appearance of both eyes Resp normal respiratory effort, normal air movement, no retractions, no use of accessory muscles and clear to auscultation bilaterally Effort and Inspection: able to speak in complete sentences and symmetric chest movement; Negative for labored, stridor or audible wheezes Cardio regular rate and regular rhythm Peripheral Pulses: pulses 2+ throughout Extremity Extremity Narrative: Bilateral lower extremities with significant edema and venous stasis skin changes. Palpable DP/PT pulses bilaterally. Wound as described below. Skin Wounds: wounds noted Wound Narrative: Large, superficial wound with irregular and somewhat macerated borders on left lower extremity. Minimal slough in wound bed. No necrotic tissue noted. No significant tenderness to palpation, fluctuance/induration, foul-smelling drainage. Significantly smaller in size from last week. Neuro oriented x3, CN's II-XII intact bilaterally, moves all extremities, no focal motor deficits and no sensory deficits noted Psych mental status grossly normal, cooperative, affect normal, speech normal and activity/motor behavior normal Debridement Note Debridement Note Wound debrided: Left lower leg Laterality: Left Type of Debridement: Excisional debridement Anesthesia Used: 5% Lidocaine Gel Depth: Down to and including healthy tissue Percentage of wound debrided: 100 Instrument Used: 5mm curette Amount of bleeding with debridement: Mild Bleeding Controlled with: Pressure Patient tolerated procedure: Patient tolerated procedure well Post-Debridement Measurements and Additional Note: Post-Debridement Measurements/Treatment WC - Nurse 1 - General Ulcer Assessment Start: 08/31/22 13:26 Freq: Status: Active Protocol: NORMA Activity Type Activity Date Activity User E-sign Co-sign Detail Recorded Client Recorded Date Recorded By Document 08/31/22 13:56 [place] [id number] 08/31/22 14:01 [place] Document 09/07/22 13:08 [facility] [id number] 09/07/22 13:21 [facility] Document 09/14/22 11:10 AILYN [id number] 09/14/22 11:14 AILYN 08/31/22 09/07/22 09/14/22 13:56 13:08 11:10 - Today's Visit Information Type of service Initial Visit Follow-up Visit Follow-up Visit (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 (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 ) ) Arrival Mode Ambulatory, Ambulatory, Ambulatory, Walker Walker Walker Transfer Assistance None Patient Identification Verified (Name & Yes Yes No ) Patient Requires Transmission-Based No No No Precautions Safety Precautions NA NA Vital Signs Temperature (97.8 F-99.1 F) 95.9 F L 96.4 F L Temperature Source Temporal Temporal Pulse Rate (60-100) 87 112 H 86 Pulse Location Monitor Monitor Monitor Respiratory Rate (12-18) 18 Respiratory rate source Observation Oxygen Delivery Method Room Air Blood Pressure (90/60-120/80) 169/102 H 158/91 H 157/94 H Blood Pressure Mean (mm Hg) 124 113 115 Source Monitor Monitor Monitor Position Sitting Blood Pressure Location Left Arm History Since Last Visit- (Skip if this is Patient's initial visit) Have you changed medications since your No No last visit? Any new allergies or adverse reactions No No Had a fall/change in ADL's that may No No increase risk of falls Signs or symptoms of abuse and/or No No neglect since last visit Have you been in the hospital since your No No last visit? Has dressing in place as prescribed Yes Yes Has compression in place as prescribed Yes Yes Has offloadiing in place as prescribed N/A N/A Experienced any changes in pain level or No No management Left Footwear Regular Shoe Regular Shoe Regular Shoe Right Footwear Regular Shoe Regular Shoe Regular Shoe Pain Scale: 0-10 Numeric Is Patient Pain Free? Yes Yes Yes - Nurse 1 - General Ulcer Measurement Start: 08/31/22 13:26 Freq: Status: Active Protocol: Activity Type Activity Date Activity User E-sign Co-sign Detail Recorded Client Recorded Date Recorded By Document 08/31/22 13:56 HITESH [id number] 08/31/22 14:01 [place] Document 09/07/22 13:08 [facility] [id number] 09/07/22 13:21 [facility] Document 09/14/22 11:10 [id number] 09/14/22 11:14 AILYN 08/31/22 09/07/22 09/14/22 13:56 13:08 11:10 Wound Center Nurse 1 #1 L lateral leg -Combined with other wound No No No -Current Size (cm) - Length 14 8.3 5.5 -Current Size (cm) - Width 10.6 11 5.2 -Current Size (cm) - Depth 0.1 0.1 0.1 -Total Square Cm 148.4 91.3 28.60 -Date of Last Picture (Recall this 08/31/22 09/07/22 field) -Photo Taken Yes Yes Yes -Epithelialization Small 1-33% -Tunneling No No -Undermining/Tunneling No No No -Circular Undermining No No No -Change in Wound Grade/Stage No No -Exudate Amt Large Large -Exudate Type Serosanguineous Sanguineous -Wound Margin Distinct, Distinct, Outline Outline Attached Attached -Granulation Amt Large (67-100%) Large (67-100%) -Granulation Quality Red Red -Slough/Fibrin Yes Yes -Necrosis Amt Small (1-33%) Small (1-33%) -Necrotic Tissue Type Adherent Slough Adherent Slough -Structure Exposed N/A -Texture (Jamilah-wound Skin Appearance) No Abnormality, Assessed, Assessed Scarring -Moisture (Jamilah-wound Skin Appearance) No Abnormality, Assessed Assessed -Color (Jamilah-wound Skin Appearance) Assessed, Assessed, Hemosiderin Hemosiderin Staining Staining -Temperature (Jamilah-wound Skin No Abnormality No Abnormality Appearance) (Pt Warm) (Pt Warm) -Tenderness on Palpation (Jamilah-wound No No Skin Appearance) -Ulcer Cleansing Soap and Water Soap and Water -Foul Odor after Cleansing No No -Anesthetic Used 5% Lidocaine 4% Lidocaine Gel Solution Lower Limb Edema Present No Point of measurement (cm from the medial 51 instep) Right Ankle (cm) 27 Left Calf (cm) 53 50.9 Left Ankle (cm) 29 24 WC - Nurse 2 - General Ulcer CM Notes Start: 08/31/22 13:26 Freq: Status: Active Protocol: Activity Type Activity Date Activity User E-sign Co-sign Detail Recorded Client Recorded Date Recorded By Document 08/31/22 15:01 PL [id number] 08/31/22 15:03 PL Document 09/07/22 15:06 PL [id number] 09/07/22 15:13 PL 08/31/22 09/07/22 15:01 15:06 Wound Center Nurse 2 #1 L lateral leg -Time 13:58 13:29 -Correct Patient Yes Yes -Correct Side, Site, Position Yes Yes -Correct Procedure Yes Yes -Procedure Performed Yes Yes -Type of Procedure Debridement Debridement -Clinical Debridement Subcutaneous Subcutaneous -Tissue Removed Subcutaneous Subcutaneous -Post Debridement (cm) - Length 13.0 7.2 -Post Debridement (cm) - Width 14.0 8.6 -Post Debridement (cm) - Depth 0.2 0.2 -Total Square (Post) (cm) 182.00 61.92 -Area of Debridement (cm) - Length 13.0 7.2 -Area of Debridement (cm) - Width 14.0 8.6 -Total Square (Area) (cm) 182.00 61.92 -Tunneling No No -Undermining/Tunneling No No -Circular Undermining No No -Wound/Ulcer Outcome Not Healed Not Healed -Ulcer Cleansing Rinsed/ Rinsed/ Irrigated with Irrigated with Saline Saline -Foul Odor after Cleansing No No -Bioengineered Tissue No No -Bleeding Controlled with Pressure Pressure -Treatment Response Procedure Procedure Tolerated Well Tolerated Well -Debridement - Subq, 1st 20sq cm Yes Yes -Debridement, SubQ, ea addt'l 20sq cm 9 3 or part thereof Pain Scale: 0-10 Numeric Is Patient Pain Free? Yes Yes WC - Nurse 3 - General Ulcer D/C NN Start: 08/31/22 13:26 Freq: Status: Active Protocol: Activity Type Activity Date Activity User E-sign Co-sign Detail Recorded Client Recorded Date Recorded By Document 08/31/22 14:26 RB [id number] 08/31/22 14:28 RB Document 09/07/22 13:47 MT [id number] 09/07/22 13:49 MT Edit Result 09/07/22 13:47 MT (1) [id number] 09/07/22 13:49 MT (1) #1 L lateral leg - Primary Dressing Applied Fibracol Plus 4x4 => Fibracol Plus 4x4, => Optilok 8x12 - Optilok 8x12 => 1 08/31/22 09/07/22 14:26 13:47 Wound Care Center Nurse 3 #1 L lateral leg -Ulcer Cleansing Wound Cleanser Soap and Water -Primary Dressing Applied Fibracol Plus Fibracol Plus 4x4 4x4,Optilok 8x12 -Other Dressing abd pad, kerlix -Primary Dressing Covered/Secured with Secured with Dry Gauze & Tape Roll Gauze, Secured with Tape -Fibracol Plus 4x4 2 2 -Optilok 8x12 1 Right -Tubular Bandage Single Layer Single Layer -Size of Tubigrip Used Size E Size F -Size E ($) 1 -Size F ($) 1 Left -Tubular Bandage Single Layer Single Layer -Size of Tubigrip Used Size E Size F -Size E ($) 1 -Size F ($) 1 Treatment Response Procedure Tolerated Well Pain Scale: 0-10 Numeric Is Patient Pain Free? Yes Yes Teaching: Wound Center Dressing Your Wound -Person Taught Patient -Teaching Method Discussion, Demonstration -Response to teaching Reinforcement needed Compression Wraps & Stockings -Person Taught Patient -Teaching Method Discussion, Demonstration -Response to teaching Verbalize understanding WC - Visit Discharge Discharge Condition Stable Stable Ambulatory Status Walker Ambulatory, Walker Transportation Private Auto Private Auto Medication Reconcilliation completed & No No provided to patient/care provider Clinical Summary of Care Provided Yes Yes Assessment/Plan Assessment/Plan (1) Chronic ulcer of left lower leg: CODE(S): L97.929 - Non-pressure chronic ulcer of unspecified part of left lower leg with unspecified severity PLAN: Wound with improved appearance and significant reduction in size from last visit. Continue with primary dressing of fibracol, secondary dressing of super absorber. Continue tubigrips bilaterally for compression. Elevate legs when resting. Patient completed antibiotics. No signs/symptoms of infection this week. Encouraged patient to keep up the good work with respect to managing his blood sugars, increasing protein, and elevating his legs. We did discuss that since has not been set up, he could come in on Saturday for a nurse visit if he would like. He is doing very well with dressing changes and keeping wound clean at home, so I will leave this up to him. He will consider and let us know if he would like to do this next week. Patient will return to clinic in 1 week or sooner as needed.
[2022-09-21 11:12] VITALS: BP 162/94; PULSE 84; RESP 16; TEMP 35.3
--- NOTE | 2022-09-21 12:05 | PN.PCM_ITS ---
History of Present Illness Date of Service: 09/21/22 Chief Complaint: Left lower leg wound History of Wound: Patient presents to the wound care center today for evaluation of left lower leg wound as referred by his PCP Dr. Arciniega. Patient reports that this wound started at the end of June secondary to likely minor trauma. He states that this wound started off much smaller but then just continued to enlarge. He eventually presented to the ED with this wound where he was subsequently admitted for cellulitis and started on IV antibiotics. He was discharged a couple days later with a course of cefdinir. During his hospitalization, he was diagnosed with type 2 diabetes. He was started on me tformin and reports his sugars at home have been very good, usually in the low 100s. He does have notable lipodermatosclerosis/chronic venous stasis skin changes which he reports have been present for many years. He denies any prior history of wounds. His legs do tend to swell, but he has never worn compression stockings. He denies any history of claudication type symptoms, prior endovascular interventions. Other than diabetes, no significant past medical history. At home, he has been caring for this wound by washing with soap and water and wrapping and dry sterile dressing. In the process of obtaining home health. Subjective Subjective Continues to report he is managing dressing changes well at home. He denies fev ers/chills, nausea/vomiting, new or worsened pain/swelling/erythema. No new wounds. Objective Data Objective Data Vital Signs: Vital Signs Temp Pulse Resp BP O2 Del Method 95.6 F L 84 16 162/94 H Room Air 09/21/22 11:12 09/21/22 11:12 09/21/22 11:12 09/21/22 11:12 09/21/22 11:12 Oxygen Delivery Method Room Air Lab / Micro Data Micro: Microbiology 08/31/22 14:10 Wound Abcess - Leg, Left Gram Stain - Final 08/31/22 14:10 Wound Abcess - Leg, Left Wound Culture - Final Staphylococcus aureus Pseudomonas aeruginosa 08/31/22 14:10 Wound Abcess - Leg, Left Anaerobic Culture - Final No anaerobic bacteria isolated. Charges/Coding Wound Center CF Procedures [id number]: [id number] RMVL DEVITAL TIS 20 CM/< Multi Select Codes Wound Center CF Procedures [id number]: [id number] RMVL DEVITAL TIS 20 CM/< Physical Exam Const alert, oriented x3 and no apparent distress General Appearance: cooperative, comfortable and anxious HEENT normocephalic, head/scalp atraumatic, hearing grossly normal bilaterally, external ears normal and external nose normal Eyes EOMs intact bilaterally General Eye: normal appearance of both eyes Resp normal respiratory effort, normal air movement, no retractions, no use of accessory muscles and clear to auscultation bilaterally Effort and Inspection: able to speak in complete sentences and symmetric chest movement; Negative for labored, stridor or audible wheezes Cardio regular rate and regular rhythm Peripheral Pulses: pulses 2+ throughout Extremity Extremity Narrative: Bilateral lower extremities with significant edema and venous stasis skin changes. Palpable DP/PT pulses bilaterally. Wound as described below. Skin Wounds: wounds noted Wound Narrative: Large, superficial wound with irregular borders on left lower extremity. Minimal slough in wound bed. No necrotic tissue noted. No significant tenderness to palpation, fluctuance/induration, foul-smelling drainage. Significantly smaller in size from last week. Neuro oriented x3, CN's II-XII intact bilaterally, moves all extremities, no focal motor deficits and no sensory deficits noted Psych mental status grossly normal, cooperative, affect normal, speech normal and activity/motor behavior normal Debridement Note Debridement Note Wound debrided: Left lower leg Laterality: Left Type of Debridement: Excisional debridement Anesthesia Used: 5% Lidocaine Gel Depth: Down to and including healthy tissue Percentage of wound debrided: 100 Instrument Used: 5mm curette Amount of bleeding with debridement: Mild Bleeding Controlled with: Pressure Patient tolerated procedure: Patient tolerated procedure well Post-Debridement Measurements and Additional Note: Post-Debridement Measurements/Treatment - Nurse 1 - General Ulcer Assessment Start: 08/31/22 13:26 Freq: Status: Active Protocol: NORMA Activity Type Activity Date Activity User E-sign Co-sign Detail Recorded Client Recorded Date Recorded By Document 08/31/22 13:56 [place] [id number] 08/31/22 14:01 [place] Document 09/07/22 13:08 [facility] [id number] 09/07/22 13:21 BM Document 09/14/22 11:10 [id number] 09/14/22 11:14 Document 09/21/22 11:12 [facility] [id number] 09/21/22 11:17 [facility] 08/31/22 09/07/22 09/14/22 13:56 13:08 11:10 [facility] Today's Visit Information Type of service Initial Visit Follow-up Visit Follow-up Visit (Physician/SURGICAL AIDE (Physician/SURGICAL AIDE ) ) Arrival Mode Ambulatory, Ambulatory, Ambulatory, Walker Walker Walker Transfer Assistance None Patient Identification Verified (Name & Yes Yes No ) Patient Requires Transmission-Based No No No Precautions Safety Precautions NA NA Vital Signs Temperature (97.8 F-99.1 F) 95.9 F L 96.4 F L Temperature Source Temporal Temporal Pulse Rate (60-100) 87 112 H 86 Pulse Location Monitor Monitor Monitor Respiratory Rate (12-18) 18 Respiratory rate source Observation Oxygen Delivery Method Room Air Blood Pressure (90/60-120/80) 169/102 H 158/91 H 157/94 H Blood Pressure Mean (mm Hg) 124 113 115 Source Monitor Monitor Monitor Position Sitting Blood Pressure Location Left Arm History Since Last Visit- (Skip if this is Patient's initial visit) Have you changed medications since your No No last visit? Any new allergies or adverse reactions No No Had a fall/change in ADL's that may No No increase risk of falls Signs or symptoms of abuse and/or No No neglect since last visit Have you been in the hospital since your No No last visit? Has dressing in place as prescribed Yes Yes Has compression in place as prescribed Yes Yes Has offloadiing in place as prescribed N/A N/A Experienced any changes in pain level or No No management Left Footwear Regular Shoe Regular Shoe Regular Shoe Right Footwear Regular Shoe Regular Shoe Regular Shoe Pain Scale: 0-10 Numeric Is Patient Pain Free? Yes Yes Yes 09/21/22 11:12 [facility] Today's Visit Information Type of service Follow-up Visit (Physician/SURGICAL AIDE ) Arrival Mode Ambulatory, Walker Transfer Assistance None Patient Identification Verified (Name & Yes ) Patient Requires Transmission-Based No Precautions Safety Precautions Vital Signs Temperature (97.8 F-99.1 F) 95.6 F L Temperature Source Temporal Pulse Rate (60-100) 84 Pulse Location Monitor Respiratory Rate (12-18) 16 Respiratory rate source Observation Oxygen Delivery Method Room Air Blood Pressure (90/60-120/80) 162/94 H Blood Pressure Mean (mm Hg) 116 Source Monitor Position Sitting Blood Pressure Location Left Arm History Since Last Visit- (Skip if this is Patient's initial visit) Have you changed medications since your No last visit? Any new allergies or adverse reactions No Had a fall/change in ADL's that may No increase risk of falls Signs or symptoms of abuse and/or No neglect since last visit Have you been in the hospital since your last visit? Has dressing in place as prescribed Yes Has compression in place as prescribed Yes Has offloadiing in place as prescribed N/A Experienced any changes in pain level or No management Left Footwear Regular Shoe Right Footwear Regular Shoe Pain Scale: 0-10 Numeric Is Patient Pain Free? Yes WC - Nurse 1 - General Ulcer Measurement Start: 08/31/22 13:26 Freq: Status: Active Protocol: Activity Type Activity Date Activity User E-sign Co-sign Detail Recorded Client Recorded Date Recorded By Document 08/31/22 13:56 CA [id number] 08/31/22 14:01 AK Document 09/07/22 13:08 [facility] [id number] 09/07/22 13:21 [facility] Document 09/14/22 11:10 [id number] 09/14/22 11:14 Document 09/21/22 11:12 [facility] [id number] 09/21/22 11:17 [facility] 08/31/22 09/07/22 09/14/22 13:56 13:08 11:10 Wound Center Nurse 1 #1 L lateral leg -Combined with other wound No No No -Current Size (cm) - Length 14 8.3 5.5 -Current Size (cm) - Width 10.6 11 5.2 -Current Size (cm) - Depth 0.1 0.1 0.1 -Total Square Cm 148.4 91.3 28.60 -Date of Last Picture (Recall this 08/31/22 09/07/22 field) -Photo Taken Yes Yes Yes -Epithelialization Small 1-33% -Tunneling No No -Undermining/Tunneling No No No -Circular Undermining No No No -Change in Wound Grade/Stage No No -Exudate Amt Large Large -Exudate Type Serosanguineous Sanguineous -Wound Margin Distinct, Distinct, Outline Outline Attached Attached -Granulation Amt Large (67-100%) Large (67-100%) -Granulation Quality Red Red -Slough/Fibrin Yes Yes -Necrosis Amt Small (1-33%) Small (1-33%) -Necrotic Tissue Type Adherent Slough Adherent Slough -Structure Exposed N/A -Texture (Jamilah-wound Skin Appearance) No Abnormality, Assessed, Assessed Scarring -Moisture (Jamilah-wound Skin Appearance) No Abnormality, Assessed Assessed -Color (Jamilah-wound Skin Appearance) Assessed, Assessed, Hemosiderin Hemosiderin Staining Staining -Temperature (Jamilah-wound Skin No Abnormality No Abnormality Appearance) (Pt Warm) (Pt Warm) -Tenderness on Palpation (Jamilah-wound No No Skin Appearance) -Ulcer Cleansing Soap and Water Soap and Water -Foul Odor after Cleansing No No -Anesthetic Used 5% Lidocaine 4% Lidocaine Gel Solution Lower Limb Edema Present No Point of measurement (cm from the medial 51 instep) Right Ankle (cm) 27 Left Calf (cm) 53 50.9 Left Ankle (cm) 29 24 09/21/22 11:12 Wound Center Nurse 1 #1 L lateral leg -Combined with other wound No -Current Size (cm) - Length 4 -Current Size (cm) - Width 5 -Current Size (cm) - Depth 0.1 -Total Square Cm 20 -Date of Last Picture (Recall this 09/21/22 field) -Photo Taken Yes -Epithelialization Small 1-33% -Tunneling No -Undermining/Tunneling No -Circular Undermining No -Change in Wound Grade/Stage -Exudate Amt Large -Exudate Type Serosanguineous -Wound Margin Distinct, Outline Attached -Granulation Amt Large (67-100%) -Granulation Quality Red -Slough/Fibrin Yes -Necrosis Amt Small (1-33%) -Necrotic Tissue Type Adherent Slough -Structure Exposed -Texture (Jamilah-wound Skin Appearance) Assessed, Scarring -Moisture (Jamilah-wound Skin Appearance) Assessed,Dry/ Scaly -Color (Jamilah-wound Skin Appearance) Assessed, Hemosiderin Staining -Temperature (Jamilah-wound Skin No Abnormality Appearance) (Pt Warm) -Tenderness on Palpation (Jamilah-wound Yes Skin Appearance) -Ulcer Cleansing Soap and Water -Foul Odor after Cleansing No -Anesthetic Used 5% Lidocaine Gel Lower Limb Edema Present Yes Point of measurement (cm from the medial instep) Right Ankle (cm) Left Calf (cm) 49.4 Left Ankle (cm) 28.5 - Nurse 2 - General Ulcer CM Notes Start: 08/31/22 13:26 Freq: Status: Active Protocol: Activity Type Activity Date Activity User E-sign Co-sign Detail Recorded Client Recorded Date Recorded By Document 08/31/22 15:01 PL [id number] 08/31/22 15:03 PL Document 09/07/22 15:06 PL [id number] 09/07/22 15:13 PL Document 09/14/22 12:17 PL [id number] 09/14/22 12:19 PL 08/31/22 09/07/22 09/14/22 15:01 15:06 12:17 Wound Center Nurse 2 #1 L lateral leg -Time 13:58 13:29 11:31 -Correct Patient Yes Yes Yes -Correct Side, Site, Position Yes Yes Yes -Correct Procedure Yes Yes Yes -Procedure Performed Yes Yes Yes -Type of Procedure Debridement Debridement Debridement -Clinical Debridement Subcutaneous Subcutaneous Subcutaneous -Tissue Removed Subcutaneous Subcutaneous Subcutaneous -Post Debridement (cm) - Length 13.0 7.2 7.0 -Post Debridement (cm) - Width 14.0 8.6 5.4 -Post Debridement (cm) - Depth 0.2 0.2 0.2 -Total Square (Post) (cm) 182.00 61.92 37.80 -Area of Debridement (cm) - Length 13.0 7.2 7.0 -Area of Debridement (cm) - Width 14.0 8.6 5.4 -Total Square (Area) (cm) 182.00 61.92 37.80 -Tunneling No No No -Undermining/Tunneling No No No -Circular Undermining No No No -Wound/Ulcer Outcome Not Healed Not Healed Not Healed -Ulcer Cleansing Rinsed/ Rinsed/ Rinsed/ Irrigated with Irrigated with Irrigated with Saline Saline Saline -Foul Odor after Cleansing No No No -Bioengineered Tissue No No No -Bleeding Controlled with Pressure Pressure Pressure -Treatment Response Procedure Procedure Procedure Tolerated Well Tolerated Well Tolerated Well -Debridement - Subq, 1st 20sq cm Yes Yes Yes -Debridement, SubQ, ea addt'l 20sq cm 9 3 1 or part thereof Pain Scale: 0-10 Numeric Is Patient Pain Free? Yes Yes Yes - Nurse 3 - General Ulcer D/C NN Start: 08/31/22 13:26 Freq: Status: Active Protocol: Activity Type Activity Date Activity User E-sign Co-sign Detail Recorded Client Recorded Date Recorded By Document 08/31/22 14:26 RB [id number] 08/31/22 14:28 RB Document 09/07/22 13:47 MT [id number] 09/07/22 13:49 MT Edit Result 09/07/22 13:47 MT (1) [id number] 09/07/22 13:49 MT Document 09/14/22 15:11 AK [id number] 09/14/22 15:13 AK Document 09/21/22 11:37 BMF [id number] 09/21/22 11:38 BMF Edit Result 09/21/22 11:37 BMF (2) [id number] 09/21/22 11:41 BMF (1) #1 L lateral leg - Primary Dressing Applied Fibracol Plus 4x4 => Fibracol Plus 4x4, => Optilok 8x12 - Optilok 8x12 => 1 (2) #1 L lateral leg - Fibracol Plus 4x4 1 => 2 08/31/22 09/07/22 09/14/22 14:26 13:47 15:11 Wound Care Center Nurse 3 #1 L lateral leg -Ulcer Cleansing Wound Cleanser Soap and Water Rinsed/ Irrigated with Saline -Foul Odor after Cleansing No -Negative Pressure Wound Therapy N/A -Primary Dressing Applied Fibracol Plus Fibracol Plus Promogran 4x4 4x4,Optilok Meena Matter 8x12 -Other Dressing abd pad, kerlix -Primary Dressing Covered/Secured with Secured with Dry Gauze & Dry Gauze & Tape Roll Gauze, Roll Gauze, Secured with Secured with Tape Tape -Other Covering -Fibracol Plus 4x4 2 2 -Mepilex Border -Optilok 8x12 1 -Promogran Meena Matter 1 Right -Tubular Bandage Single Layer Single Layer -Size of Tubigrip Used Size E Size F -Size E ($) 1 -Size F ($) 1 Left -Tubular Bandage Single Layer Single Layer Double Layer -Size of Tubigrip Used Size E Size F Size F -Size E ($) 1 -Size F ($) 1 2 Treatment Response Procedure Tolerated Well Pain Scale: 0-10 Numeric Is Patient Pain Free? Yes Yes Yes Teaching: Wound Center Dressing Your Wound -Person Taught Patient -Teaching Method Discussion, Demonstration -Response to teaching Reinforcement needed Compression Wraps & Stockings -Person Taught Patient -Teaching Method Discussion, Demonstration -Response to teaching Verbalize understanding WC - Visit Discharge Discharge Condition Stable Stable Stable Ambulatory Status Walker Ambulatory, Ambulatory, Walker Walker Transportation Private Auto Private Auto Private Auto Medication Reconcilliation completed & No No Yes provided to patient/care provider Clinical Summary of Care Provided Yes Yes Yes 09/21/22 11:37 Wound Care Center Nurse 3 #1 L lateral leg -Ulcer Cleansing Rinsed/ Irrigated with Saline -Foul Odor after Cleansing No -Negative Pressure Wound Therapy -Primary Dressing Applied Fibracol Plus 4x4,Mepilex Border -Other Dressing -Primary Dressing Covered/Secured with -Other Covering DRSG PER JF RN -Fibracol Plus 4x4 2 -Mepilex Border 1 -Optilok 8x12 -Promogran Meena Matter Right -Tubular Bandage -Size of Tubigrip Used -Size E ($) -Size F ($) Left -Tubular Bandage Single Layer -Size of Tubigrip Used Size F -Size E ($) -Size F ($) 1 Treatment Response Procedure Tolerated Well Pain Scale: 0-10 Numeric Is Patient Pain Free? Yes Teaching: Wound Center Dressing Your Wound -Person Taught -Teaching Method -Response to teaching Compression Wraps & Stockings -Person Taught -Teaching Method -Response to teaching WC - Visit Discharge Discharge Condition Stable Ambulatory Status Ambulatory, Walker Transportation Medication Reconcilliation completed & provided to patient/care provider Clinical Summary of Care Provided Assessment/Plan Assessment/Plan (1) Chronic ulcer of left lower leg: CODE(S): L97.929 - Non-pressure chronic ulcer of unspecified part of left lower leg with unspecified severity PLAN: Wound with significant reduction in size from last visit. Continue with primary dressing of fibracol, secondary dressing of super absorber/silicone border dressing. Continue tubigrips bilaterally for compression. Elevate legs when resting. No signs/symptoms of infection this week. Encouraged patient to keep up the good work with respect to managing his blood sugars, increasing protein, and elevating his legs. He still feels he is managing dressing changes well at home, does not need nurse visits here. As his wound continues to improve and no signs/symptoms of infection I think this is reasonable. Patient will return to clinic in 1 week or sooner as needed.
== END 2022-09-21 23:59 | disposition home or self-care (01) ==
LOC: WC 11:30
PROVIDERS: PCP Internal Medicine; Visit Provider Physician Assistant
DX: E11.622 Type 2 diabetes mellitus with other skin ulcer (principal); L97.829 Non-pressure chronic ulcer of other part of left lower leg with unspecified severity; I83.12 Varicose veins of left lower extremity with inflammation; Z79.84 Long term (current) use of oral hypoglycemic drugs; Z79.899 Other long term (current) drug therapy
CPT/HCPCS: 11042; 11045; 87070; 87075; 87077; 87186; 87205; 99213; G0463

== ENCOUNTER 2022-10-19 13:00 | Outpatient (RCR) | payer MEDICARE, MEDICAID, SELFPAY ==
[2022-09-22 00:42] VITALS: BP 162/94; PULSE 84; RESP 16; TEMP 35.3
[2022-09-28 12:55] VITALS: BP 157/85; PULSE 78; RESP 16; TEMP 35.8
--- NOTE | 2022-09-28 13:24 | PN.PCM_ITS ---
History of Present Illness Date of Service: 09/28/22 Chief Complaint: Left lower leg wound History of Wound: Patient presents to the wound care center today for evaluation of left lower leg wound as referred by his PCP Dr. Arciniega. Patient reports that this wound started at the end of June secondary to likely minor trauma. He states that this wound started off much smaller but then just continued to enlarge. He eventually presented to the ED with this wound where he was subsequently admitted for cellulitis and started on IV antibiotics. He was discharged a couple days later with a course of cefdinir. During his hospitalization, he was diagnosed with type 2 diabetes. He was started on me tformin and reports his sugars at home have been very good, usually in the low 100s. He does have notable lipodermatosclerosis/chronic venous stasis skin changes which he reports have been present for many years. He denies any prior history of wounds. His legs do tend to swell, but he has never worn compression stockings. He denies any history of claudication type symptoms, prior endovascular interventions. Other than diabetes, no significant past medical history. At home, he has been caring for this wound by washing with soap and water and wrapping and dry sterile dressing. In the process of obtaining home health. Subjective Subjective Continues to report he is managing dressing changes well at home. He denies fev ers/chills, nausea/vomiting, new or worsened pain/swelling/erythema. No new wounds. Still no HHC. Objective Data Objective Data Vital Signs: Vital Signs Temp Pulse Resp BP 96.5 F L 78 16 157/85 H 09/28/22 12:55 09/28/22 12:55 09/28/22 12:55 09/28/22 12:55 Charges/Coding Multi Select Codes Integumentary Integumentary CPT Codes: 59040 Ai subq tissue 20 sq cm/< Physical Exam Const alert, oriented x3 and no apparent distress General Appearance: cooperative, comfortable and anxious HEENT normocephalic, head/scalp atraumatic, hearing grossly normal bilaterally, external ears normal and external nose normal Eyes EOMs intact bilaterally General Eye: normal appearance of both eyes Resp normal respiratory effort, normal air movement, no retractions, no use of accessory muscles and clear to auscultation bilaterally Effort and Inspection: able to speak in complete sentences and symmetric chest movement; Negative for labored, stridor or audible wheezes Cardio regular rate and regular rhythm Peripheral Pulses: pulses 2+ throughout Extremity Extremity Narrative: Bilateral lower extremities with significant edema and venous stasis skin changes. Palpable DP/PT pulses bilaterally. Wound as described below. Skin Wounds: wounds noted Wound Narrative: Superficial wound with irregular borders on left lower extremity, much smaller this week than last. Minimal slough in wound bed. No necrotic tissue noted. No significant tenderness to palpation, fluctuance/induration, foul-smelling drainage. Neuro oriented x3, CN's II-XII intact bilaterally, moves all extremities, no focal motor deficits and no sensory deficits noted Psych mental status grossly normal, cooperative, affect normal, speech normal and activity/motor behavior normal Debridement Note Debridement Note Wound debrided: Left lower leg Laterality: Left Type of Debridement: Excisional debridement Anesthesia Used: 5% Lidocaine Gel Depth: Down to and including healthy tissue Percentage of wound debrided: 100 Instrument Used: 5mm curette Tissue Removed: slough, devitalized tissue Amount of bleeding with debridement: Mild Bleeding Controlled with: Pressure Patient tolerated procedure: Patient tolerated procedure well Post-Debridement Measurements and Additional Note: Post-Debridement Measurements/Treatment - Nurse 1 - General Ulcer Assessment Start: 09/28/22 12:55 Freq: Status: Active Protocol: NORMA Activity Type Activity Date Activity User E-sign Co-sign Detail Recorded Client Recorded Date Recorded By Document 09/28/22 12:55 AILYN [id number] 09/28/22 12:57 AILYN 09/28/22 12:55 - Today's Visit Information Type of service Nurse-only Visit Arrival Mode Ambulatory, Walker Patient Identification Verified (Name & Yes ) Patient Requires Transmission-Based No Precautions Finger Stick Blood Sugar(mg/dl) (if 105 indicated): Blood Sugar Stated by Patient Vital Signs Temperature (97.8 F-99.1 F) 96.5 F L Temperature Source Temporal Pulse Rate (60-100) 78 Pulse Location Monitor Respiratory Rate (12-18) 16 Respiratory rate source Observation Blood Pressure (90/60-120/80) 157/85 H Blood Pressure Mean (mm Hg) 109 Source Monitor Position Semi-Fowlers Blood Pressure Location Right Arm History Since Last Visit- (Skip if this is Patient's initial visit) Have you changed medications since your No last visit? Any new allergies or adverse reactions No Had a fall/change in ADL's that may No increase risk of falls Signs or symptoms of abuse and/or No neglect since last visit Have you been in the hospital since your No last visit? Has dressing in place as prescribed Yes Has compression in place as prescribed Yes Has offloadiing in place as prescribed N/A Experienced any changes in pain level or No management Left Footwear Regular Shoe Right Footwear Regular Shoe Pain Scale: 0-10 Numeric Is Patient Pain Free? Yes WC - Nurse 1 - General Ulcer Measurement Start: 09/28/22 12:55 Freq: Status: Active Protocol: Activity Type Activity Date Activity User E-sign Co-sign Detail Recorded Client Recorded Date Recorded By Document 09/28/22 12:55 AILYN [id number] 09/28/22 12:57 AILYN 09/28/22 12:55 Wound Center Nurse 1 #1 L lateral leg -Combined with other wound No -Current Size (cm) - Length 3.5 -Current Size (cm) - Width 3.0 -Current Size (cm) - Depth 0.1 -Total Square Cm 10.50 -Photo Taken Yes -Epithelialization Small 1-33% -Tunneling No -Undermining/Tunneling No -Circular Undermining No -Exudate Amt Medium -Exudate Type Serosanguineous -Wound Margin Flat & Intact -Granulation Amt Large (67-100%) -Granulation Quality Pale -Slough/Fibrin Yes -Necrosis Amt Small (1-33%) -Necrotic Tissue Type Adherent Slough -Structure Exposed N/A -Texture (Jamilah-wound Skin Appearance) Assessed, Localized Edema -Moisture (Jamilah-wound Skin Appearance) Assessed -Color (Jamilah-wound Skin Appearance) Assessed, Hemosiderin Staining -Temperature (Jamilah-wound Skin No Abnormality Appearance) (Pt Warm) -Tenderness on Palpation (Jamilah-wound No Skin Appearance) -Ulcer Cleansing Wound Cleanser -Foul Odor after Cleansing No -Anesthetic Used 5% Lidocaine Gel Lower Limb Edema Present Yes Left Calf (cm) 48 Left Ankle (cm) 28 Assessment/Plan Assessment/Plan (1) Non-pressure chronic ulcer of unspecified part of unspecified lower leg l imited to breakdown of skin: CODE(S): L97.901 - Non-pressure chronic ulcer of unspecified part of unspecified lower leg limited to breakdown of skin PLAN: Again with significant reduction in size from last visit. Continue with primary dressing of fibracol, secondary dressing of super absorber/silicone border dressing. Continue tubigrips bilaterally for compression. Continue to elevate legs when resting. No signs/symptoms of infection this week. Encouraged patient to keep up the good work with respect to managing his blood sugars, increasing protein, and elevating his legs. He still feels he is managing dressing changes well at home. As his wound continues to improve and no signs/symptoms of infection I think this is reasonable. Patient will return to clinic in 1 week or sooner as needed.
[2022-10-05 12:48] VITALS: BP 159/87; PULSE 89; RESP 18; TEMP 35.3
--- NOTE | 2022-10-05 14:24 | PN.PCM_ITS ---
History of Present Illness Date of Service: 10/05/22 Chief Complaint: Left lower leg wound History of Wound: Patient presents to the wound care center today for evaluation of left lower leg wound as referred by his PCP Dr. Arciniega. Patient reports that this wound started at the end of June secondary to likely minor trauma. He states that this wound started off much smaller but then just continued to enlarge. He eventually presented to the ED with this wound where he was subsequently admitted for cellulitis and started on IV antibiotics. He was discharged a couple days later with a course of cefdinir. During his hospitalization, he was diagnosed with type 2 diabetes. He was started on me tformin and reports his sugars at home have been very good, usually in the low 100s. He does have notable lipodermatosclerosis/chronic venous stasis skin changes which he reports have been present for many years. He denies any prior history of wounds. His legs do tend to swell, but he has never worn compression stockings. He denies any history of claudication type symptoms, prior endovascular interventions. Other than diabetes, no significant past medical history. At home, he has been caring for this wound by washing with soap and water and wrapping and dry sterile dressing. In the process of obtaining home health. Subjective Subjective He stayed at his sister's house the past couple of days. He did not have his [facility] wound care supplies there and used a different adhesive bandage. As a result, he has some skin tears/contact dermatitis where this bandage was. He continues to tolerate and be compliant with compression. He denies F/C, N/V, increased pain or swelling to LE. Objective Data Objective Data Vital Signs: Vital Signs Temp Pulse Resp BP O2 Del Method 95.6 F L 89 18 159/87 H Room Air 10/05/22 12:48 10/05/22 12:48 10/05/22 12:48 10/05/22 12:48 10/05/22 12:48 Oxygen Delivery Method Room Air Charges/Coding Visit Charges Office Visits / Consults: 66243 OV L3 Est Physical Exam Const alert, oriented x3 and no apparent distress General Appearance: cooperative, comfortable and anxious HEENT normocephalic, head/scalp atraumatic, hearing grossly normal bilaterally, external ears normal and external nose normal Eyes EOMs intact bilaterally General Eye: normal appearance of both eyes Resp normal respiratory effort, normal air movement, no retractions, no use of accessory muscles and clear to auscultation bilaterally Effort and Inspection: able to speak in complete sentences and symmetric chest movement; Negative for labored, stridor or audible wheezes Cardio regular rate and regular rhythm Peripheral Pulses: pulses 2+ throughout Extremity Extremity Narrative: Bilateral lower extremities with significant edema and venous stasis skin changes. Palpable DP/PT pulses bilaterally. Wound as described below. Skin Wounds: wounds noted Wound Narrative: Original wound is resolved, fully epithelialized. Now with the skin tears/dermatitis from the adhesive dressing he had in place the last few days. No significant tenderness to palpation, fluctuance/induration, foul-smelling drainage. Neuro oriented x3, CN's II-XII intact bilaterally, moves all extremities, no focal motor deficits and no sensory deficits noted Psych mental status grossly normal, cooperative, affect normal, speech normal and activity/motor behavior normal Debridement Note Debridement Note No debridement was completed: No debridement was completed today Post-Debridement Measurements and Additional Note: Post-Debridement Measurements/Treatment - Nurse 1 - General Ulcer Assessment Start: 09/28/22 12:55 Freq: Status: Active Protocol: ELIZABETH.PAT Activity Type Activity Date Activity User E-sign Co-sign Detail Recorded Client Recorded Date Recorded By Document 09/28/22 12:55 [id number] 09/28/22 12:57 Document 10/05/22 12:48 [facility] [id number] 10/05/22 12:53 [facility] 09/28/22 10/05/22 12:55 12:48 - Today's Visit Information Type of service Nurse-only Follow-up Visit Visit (Physician/CHEMIST INSTRUMENTATION ) Arrival Mode Ambulatory, Ambulatory, Walker Walker Transfer Assistance None Patient Identification Verified (Name & Yes Yes ) Patient Requires Transmission-Based No Precautions Finger Stick Blood Sugar(mg/dl) (if 105 indicated): Blood Sugar Stated by Patient Vital Signs Temperature (97.8 F-99.1 F) 96.5 F L 95.6 F L Temperature Source Temporal Temporal Pulse Rate (60-100) 78 89 Pulse Location Monitor Monitor Respiratory Rate (12-18) 16 18 Respiratory rate source Observation Observation Oxygen Delivery Method Room Air Blood Pressure (90/60-120/80) 157/85 H 159/87 H Blood Pressure Mean (mm Hg) 109 111 Source Monitor Monitor Position Semi-Fowlers Sitting Blood Pressure Location Right Arm Left Arm History Since Last Visit- (Skip if this is Patient's initial visit) Have you changed medications since your No No last visit? Any new allergies or adverse reactions No No Had a fall/change in ADL's that may No No increase risk of falls Signs or symptoms of abuse and/or No No neglect since last visit Have you been in the hospital since your No No last visit? Has dressing in place as prescribed Yes Yes Has compression in place as prescribed Yes Yes Has offloadiing in place as prescribed N/A N/A Experienced any changes in pain level or No No management Left Footwear Regular Shoe Regular Shoe Right Footwear Regular Shoe Regular Shoe Pain Scale: 0-10 Numeric Is Patient Pain Free? Yes Yes WC - Nurse 1 - General Ulcer Measurement Start: 09/28/22 12:55 Freq: Status: Active Protocol: Activity Type Activity Date Activity User E-sign Co-sign Detail Recorded Client Recorded Date Recorded By Document 09/28/22 12:55 [id number] 09/28/22 12:57 Document 10/05/22 12:48 [facility] [id number] 10/05/22 12:53 [facility] 09/28/22 10/05/22 12:55 12:48 Wound Center Nurse 1 #1 L lateral leg -Combined with other wound No No -Current Size (cm) - Length 3.5 0.9 -Current Size (cm) - Width 3.0 3 -Current Size (cm) - Depth 0.1 0.1 -Total Square Cm 10.50 2.7 -Date of Last Picture (Recall this 10/05/22 field) -Photo Taken Yes Yes -Epithelialization Small 1-33% Medium 34-66% -Tunneling No No -Undermining/Tunneling No No -Circular Undermining No No -Exudate Amt Medium Medium -Exudate Type Serosanguineous Serosanguineous -Wound Margin Flat & Intact Distinct, Outline Attached -Granulation Amt Large (67-100%) Small (1-33%) -Granulation Quality Pale Red -Slough/Fibrin Yes Yes -Necrosis Amt Small (1-33%) Large (67-100%) -Necrotic Tissue Type Adherent Slough Eschar -Structure Exposed N/A -Texture (Alba-wound Skin Appearance) Assessed, Assessed, Localized Edema Scarring -Moisture (Alba-wound Skin Appearance) Assessed Assessed -Color (Alba-wound Skin Appearance) Assessed, Assessed Hemosiderin Staining -Temperature (Alba-wound Skin No Abnormality No Abnormality Appearance) (Pt Warm) (Pt Warm) -Tenderness on Palpation (Alba-wound No No Skin Appearance) -Ulcer Cleansing Wound Cleanser Soap and Water -Foul Odor after Cleansing No No -Anesthetic Used 5% Lidocaine 5% Lidocaine Gel Gel -Wound Comment(s) WOUND IMPROVED. NEW ALBA WOUND ULCERATION CAUSED BY LG BANDAID PT WEARING Lower Limb Edema Present Yes Yes Left Calf (cm) 48 49.8 Left Ankle (cm) 28 29.7 WC - Nurse 2 - General Ulcer CM Notes Start: 09/28/22 12:55 Freq: Status: Active Protocol: Activity Type Activity Date Activity User E-sign Co-sign Detail Recorded Client Recorded Date Recorded By Document 09/28/22 14:44 PL [id number] 09/28/22 14:46 PL Document 10/05/22 14:22 PL [id number] 10/05/22 14:22 PL 09/28/22 10/05/22 14:44 14:22 Wound Center Nurse 2 #1 L lateral leg -Time 13:02 -Correct Patient Yes -Correct Side, Site, Position Yes -Correct Procedure Yes -Procedure Performed Yes No -Type of Procedure Debridement -Clinical Debridement Subcutaneous -Tissue Removed Subcutaneous -Post Debridement (cm) - Length 4.7 -Post Debridement (cm) - Width 1.0 -Post Debridement (cm) - Depth 0.1 -Total Square (Post) (cm) 4.70 -Area of Debridement (cm) - Length 4.7 -Area of Debridement (cm) - Width 1.0 -Total Square (Area) (cm) 4.70 -Tunneling No -Undermining/Tunneling No -Circular Undermining No -Wound/Ulcer Outcome Not Healed Healed- Epithelialized -Ulcer Cleansing Rinsed/ Irrigated with Saline -Foul Odor after Cleansing No -Bioengineered Tissue No -Bleeding Controlled with Pressure -Treatment Response Procedure Tolerated Well -Debridement - Subq, 1st 20sq cm Yes Pain Scale: 0-10 Numeric Is Patient Pain Free? Yes Yes - Nurse 3 - General Ulcer D/C NN Start: 09/28/22 12:55 Freq: Status: Active Protocol: Activity Type Activity Date Activity User E-sign Co-sign Detail Recorded Client Recorded Date Recorded By Document 09/28/22 14:44 PL [id number] 09/28/22 14:46 PL Document 10/05/22 13:28 JF [id number] 10/05/22 13:29 09/28/22 10/05/22 14:44 13:28 Pain Scale: 0-10 Numeric Is Patient Pain Free? Yes Yes Wound Care Center Nurse 3 #1 L lateral leg -Ulcer Cleansing Rinsed/ Rinsed/ Irrigated with Irrigated with Saline Saline -Foul Odor after Cleansing No No -Primary Dressing Applied Fibracol Plus Fibracol Plus 4x4,Mepilex 4x4,Mepilex Border Border -Fibracol Plus 4x4 1 1 -Mepilex Border 1 1 Bilateral -Tubular Bandage Single Layer Single Layer -Size of Tubigrip Used Size E Size E -Size E ($) 4 2 WC - Visit Discharge Discharge Condition Stable Stable Ambulatory Status Ambulatory Ambulatory, Walker Transportation Private Auto Private Auto Medication Reconcilliation completed & Yes provided to patient/care provider Clinical Summary of Care Provided Yes Assessment/Plan Assessment/Plan (1) Non-pressure chronic ulcer of unspecified part of unspecified lower leg limited to breakdown of skin: CODE(S): L97.901 - Non-pressure chronic ulcer of unspecified part of unspecified lower leg limited to breakdown of skin PLAN: Original LLE wound is healed at this time. Now with skin tears/irritation from adhesive dressing he had in place these last few days. Will apply fibracol and super absorber to this area. Continue with tubigrips. Will plan to measure for compression stockings next week. No signs/symptoms of infection this week. Did offer for patient to come in for nurse visits for dressing changes through the week since [facility] has not worked out. He declines at this time. Patient will return to clinic in 1 week or sooner as needed.
[2022-10-12 11:08] VITALS: BP 127/80; PULSE 101; RESP 20; TEMP 35.5
--- NOTE | 2022-10-12 15:44 | PN.PCM_ITS ---
History of Present Illness Date of Service: 10/12/22 Chief Complaint: Left lower leg wound History of Wound: Patient presents to the wound care center today for evaluation of left lower leg wound as referred by his PCP Dr. Arciniega. Patient reports that this wound started at the end of June secondary to likely minor trauma. He states that this wound started off much smaller but then just continued to enlarge. He eventually presented to the ED with this wound where he was subsequently admitted for cellulitis and started on IV antibiotics. He was discharged a couple days later with a course of cefdinir. During his hospitalization, he was diagnosed with type 2 diabetes. He was started on me tformin and reports his sugars at home have been very good, usually in the low 100s. He does have notable lipodermatosclerosis/chronic venous stasis skin changes which he reports have been present for many years. He denies any prior history of wounds. His legs do tend to swell, but he has never worn compression stockings. He denies any history of claudication type symptoms, prior endovascular interventions. Other than diabetes, no significant past medical history. At home, he has been caring for this wound by washing with soap and water and wrapping and dry sterile dressing. In the process of obtaining home health. Subjective Subjective Unfortunately, there is recurrence of wound to the LLE. Patient reports he has been compliant with compression and elevation. He was staying at his sister's and cannot elevate quite as well there. Otherwise, no new/worsening pain, redness, focal swelling, drainage, N/V, F/C. He reports he is managing dressing changes well, continues to decline offer for nurse visits. Objective Data Objective Data Vital Signs: Vital Signs Temp Pulse Resp BP O2 Del Method 95.9 F L 101 H 20 H 127/80 H Room Air 10/12/22 11:08 10/12/22 11:08 10/12/22 11:08 10/12/22 11:08 10/05/22 12:48 Oxygen Delivery Method Room Air Charges/Coding Procedures Integumentary 111xxx-113xx: [id number] Ai subq tissue 20 sq cm/< Physical Exam Const alert, oriented x3 and no apparent distress General Appearance: cooperative, comfortable and anxious HEENT normocephalic, head/scalp atraumatic, hearing grossly normal bilaterally, external ears normal and external nose normal Eyes EOMs intact bilaterally General Eye: normal appearance of both eyes Resp normal respiratory effort, normal air movement, no retractions, no use of accessory muscles and clear to auscultation bilaterally Effort and Inspection: able to speak in complete sentences and symmetric chest movement; Negative for labored, stridor or audible wheezes Cardio regular rate and regular rhythm Peripheral Pulses: pulses 2+ throughout Extremity Extremity Narrative: Bilateral lower extremities with significant edema and venous stasis skin changes. Palpable DP/PT pulses bilaterally. Wound as described below. Skin Wounds: wounds noted Wound Narrative: Skin tears/dermatitis resolved. Now with small venous wound to LLE, same area as initial wound but much smaller in size. Wound bed with red granulation tissue. No significant tenderness to palpation, fluctuance/induration, foul-smelling drainage. Neuro oriented x3, CN's II-XII intact bilaterally, moves all extremities, no focal motor deficits and no sensory deficits noted Psych mental status grossly normal, cooperative, affect normal, speech normal and act ivity/motor behavior normal Debridement Note Debridement Note Wound debrided: Left lower leg Laterality: Left Type of Debridement: Excisional debridement Anesthesia Used: 5% Lidocaine Gel Depth: Down to and including healthy tissue Percentage of wound debrided: 100 Instrument Used: 5mm curette Tissue Removed: slough, devitalized tissue Amount of bleeding with debridement: Mild Bleeding Controlled with: Pressure Patient tolerated procedure: Patient tolerated procedure well Post-Debridement Measurements and Additional Note: Post-Debridement Measurements/Treatment - Nurse 1 - General Ulcer Assessment Start: 09/28/22 12:55 Freq: Status: Active Protocol: NORMA Activity Type Activity Date Activity User E-sign Co-sign Detail Recorded Client Recorded Date Recorded By Document 09/28/22 12:55 [id number] 09/28/22 12:57 Document 10/05/22 12:48 [facility] [id number] 10/05/22 12:53 [facility] Document 10/12/22 11:08 [facility] [id number] 10/12/22 11:12 [facility] 09/28/22 10/05/22 10/12/22 12:55 12:48 11:08 - Today's Visit Information Type of service Nurse-only Follow-up Visit Follow-up Visit Visit (Physician/POST ANESTHESIA ROOM NURSE (Physician/POST ANESTHESIA ROOM NURSE ) ) Arrival Mode Ambulatory, Ambulatory, Ambulatory, Walker Walker Walker Transfer Assistance None Patient Identification Verified (Name & Yes Yes Yes ) Patient Requires Transmission-Based No No Precautions Finger Stick Blood Sugar(mg/dl) (if 105 100 indicated): Blood Sugar Stated by Stated by Patient Patient Vital Signs Temperature (97.8 F-99.1 F) 96.5 F L 95.6 F L 95.9 F L Temperature Source Temporal Temporal Temporal Pulse Rate (60-100) 78 89 101 H Pulse Location Monitor Monitor Monitor Respiratory Rate (12-18) 16 18 20 H Respiratory rate source Observation Observation Observation Oxygen Delivery Method Room Air Blood Pressure (90/60-120/80) 157/85 H 159/87 H 127/80 H Blood Pressure Mean (mm Hg) 109 111 95 Source Monitor Monitor Monitor Position Semi-Fowlers Sitting Sitting Blood Pressure Location Right Arm Left Arm Left Arm History Since Last Visit- (Skip if this is Patient's initial visit) Have you changed medications since your No No No last visit? Any new allergies or adverse reactions No No No Had a fall/change in ADL's that may No No No increase risk of falls Signs or symptoms of abuse and/or No No No neglect since last visit Have you been in the hospital since your No No No last visit? Has dressing in place as prescribed Yes Yes Yes Has compression in place as prescribed Yes Yes Yes Has offloadiing in place as prescribed N/A N/A N/A Experienced any changes in pain level or No No No management Left Footwear Regular Shoe Regular Shoe Regular Shoe Right Footwear Regular Shoe Regular Shoe Regular Shoe Pain Scale: 0-10 Numeric Is Patient Pain Free? Yes Yes Yes - Nurse 1 - General Ulcer Measurement Start: 09/28/22 12:55 Freq: Status: Active Protocol: Activity Type Activity Date Activity User E-sign Co-sign Detail Recorded Client Recorded Date Recorded By Document 09/28/22 12:55 [id number] 09/28/22 12:57 Document 10/05/22 12:48 [facility] [id number] 10/05/22 12:53 BM Document 10/12/22 11:08 [facility] [id number] 10/12/22 11:12 [facility] Edit Result 10/12/22 11:08 BMF (1) [id number] 10/12/22 11:16 JF (1) #1 L lateral leg - Current Size (cm) - Length => 3.8 - Current Size (cm) - Width => 3.5 - Current Size (cm) - Depth => 0.1 - Total Square Cm => 13.30 - Photo Taken => Yes - Epithelialization => Small 1-33% - Tunneling => No - Undermining/Tunneling => No - Circular Undermining => No - Exudate Amt => Medium - Exudate Type => Serosanguineous - Wound Margin => Flat & Intact - Granulation Amt => Large (67-100%) - Granulation Quality => Red - Slough/Fibrin => Yes - Necrosis Amt => Small (1-33%) - Structure Exposed => N/A - Texture (Jamilah-wound Skin Appearance) => Assessed,Localized => Edema - Moisture (Jamilah-wound Skin Appearance) => Maceration,Dry/ => Scaly - Color (Jamilah-wound Skin Appearance) => Assessed, => Hemosiderin => Staining - Tenderness on Palpation (Jamilah-wound => No Skin Appearance) - Ulcer Cleansing => Wound Cleanser - Foul Odor after Cleansing => No - Anesthetic Used => 5% Lidocaine Gel 09/28/22 10/05/22 10/12/22 12:55 12:48 11:08 Wound Center Nurse 1 #1 L lateral leg -Combined with other wound No No -Current Size (cm) - Length 3.5 0.9 3.8 -Current Size (cm) - Width 3.0 3 3.5 -Current Size (cm) - Depth 0.1 0.1 0.1 -Total Square Cm 10.50 2.7 13.30 -Date of Last Picture (Recall this 10/05/22 field) -Photo Taken Yes Yes Yes -Epithelialization Small 1-33% Medium 34-66% Small 1-33% -Tunneling No No No -Undermining/Tunneling No No No -Circular Undermining No No No -Exudate Amt Medium Medium Medium -Exudate Type Serosanguineous Serosanguineous Serosanguineous -Wound Margin Flat & Intact Distinct, Flat & Intact Outline Attached -Granulation Amt Large (67-100%) Small (1-33%) Large (67-100%) -Granulation Quality Pale Red Red -Slough/Fibrin Yes Yes Yes -Necrosis Amt Small (1-33%) Large (67-100%) Small (1-33%) -Necrotic Tissue Type Adherent Slough Eschar -Structure Exposed N/A N/A -Texture (Jamilah-wound Skin Appearance) Assessed, Assessed, Assessed, Localized Edema Scarring Localized Edema -Moisture (Jamilah-wound Skin Appearance) Assessed Assessed Maceration,Dry/ Scaly -Color (Jamilah-wound Skin Appearance) Assessed, Assessed Assessed, Hemosiderin Hemosiderin Staining Staining -Temperature (Jamilah-wound Skin No Abnormality No Abnormality Appearance) (Pt Warm) (Pt Warm) -Tenderness on Palpation (Jamilah-wound No No No Skin Appearance) -Ulcer Cleansing Wound Cleanser Soap and Water Wound Cleanser -Foul Odor after Cleansing No No No -Anesthetic Used 5% Lidocaine 5% Lidocaine 5% Lidocaine Gel Gel Gel -Wound Comment(s) WOUND IMPROVED. [place] WOUND ULCERATION CAUSED BY LG [facility] PT WEARING Lower Limb Edema Present Yes Yes Yes Left Calf (cm) 48 49.8 49.1 Left Ankle (cm) 28 29.7 27.8 WC - Nurse 2 - General Ulcer CM Notes Start: 09/28/22 12:55 Freq: Status: Active Protocol: Activity Type Activity Date Activity User E-sign Co-sign Detail Recorded Client Recorded Date Recorded By Document 09/28/22 14:44 PL [id number] 09/28/22 14:46 PL Document 10/05/22 14:22 PL [id number] 10/05/22 14:22 PL Document 10/12/22 11:49 PL [id number] 10/12/22 11:50 PL 09/28/22 10/05/22 10/12/22 14:44 14:22 11:49 Wound Center Nurse 2 #1 L lateral leg -Time 13:02 11:19 -Correct Patient Yes Yes -Correct Side, Site, Position Yes Yes -Correct Procedure Yes Yes -Procedure Performed Yes No Yes -Type of Procedure Debridement Debridement -Clinical Debridement Subcutaneous Subcutaneous -Tissue Removed Subcutaneous Subcutaneous -Post Debridement (cm) - Length 4.7 2.8 -Post Debridement (cm) - Width 1.0 3.9 -Post Debridement (cm) - Depth 0.1 0.1 -Total Square (Post) (cm) 4.70 10.92 -Area of Debridement (cm) - Length 4.7 2.8 -Area of Debridement (cm) - Width 1.0 3.9 -Total Square (Area) (cm) 4.70 10.92 -Tunneling No No -Undermining/Tunneling No No -Circular Undermining No No -Wound/Ulcer Outcome Not Healed Healed- Not Healed Epithelialized -Ulcer Cleansing Rinsed/ Rinsed/ Irrigated with Irrigated with Saline Saline -Foul Odor after Cleansing No No -Bioengineered Tissue No No -Bleeding Controlled with Pressure Pressure -Treatment Response Procedure Procedure Tolerated Well Tolerated Well -Debridement - Subq, 1st 20sq cm Yes Yes Pain Scale: 0-10 Numeric Is Patient Pain Free? Yes Yes Yes - Nurse 3 - General Ulcer D/C NN Start: 09/28/22 12:55 Freq: Status: Active Protocol: Activity Type Activity Date Activity User E-sign Co-sign Detail Recorded Client Recorded Date Recorded By Document 09/28/22 14:44 PL [id number] 09/28/22 14:46 PL Document 10/05/22 13:28 [id number] 10/05/22 13:29 Document 10/12/22 11:30 [facility] [id number] 10/12/22 11:31 [facility] 09/28/22 10/05/22 10/12/22 14:44 13:28 11:30 Pain Scale: 0-10 Numeric Is Patient Pain Free? Yes Yes Yes Wound Care Center Nurse 3 #1 L lateral leg -Ulcer Cleansing Rinsed/ Rinsed/ Wound Cleanser Irrigated with Irrigated with Saline Saline -Foul Odor after Cleansing No No No -Primary Dressing Applied Fibracol Plus Fibracol Plus Fibracol Plus 4x4,Mepilex 4x4,Mepilex 4x4,Mepilex Border Border Border -Other Dressing drsg per jorge rn -Fibracol Plus 4x4 1 1 1 -Mepilex Border 1 1 1 Bilateral -Tubular Bandage Single Layer Single Layer Double Layer -Size of Tubigrip Used Size E Size E Size E -Size E ($) 4 2 2 Treatment Response Procedure Tolerated Well - Visit Discharge Discharge Condition Stable Stable Stable Ambulatory Status Ambulatory Ambulatory, Ambulatory, Walker Walker Transportation Private Auto Private Auto Private Auto Medication Reconcilliation completed & Yes provided to patient/care provider Clinical Summary of Care Provided Yes Assessment/Plan Assessment/Plan (1) 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 Now with recurrence of LLE wound, but quite small compared to wound at initial presentation. Apply fibracol, super absorber dressing over top. Change dressing 3 times weekly or more often as needed to keep clean and dry. Will do double tubigrips this week. Continue to encourage leg elevation when possible. No signs/symptoms of infection this week. Did offer for patient to come in for nurse visits for dressing changes through the week since [facility] has not worked out. He declines at this time. Patient will return to clinic in 1 week or sooner as needed.
[2022-10-19 13:05] VITALS: BP 140/82; PULSE 99; RESP 16; TEMP 36.1
--- NOTE | 2022-10-19 14:39 | PN.PCM_ITS ---
History of Present Illness Date of Service: 10/19/22 Chief Complaint: Left lower leg wound History of Wound: Patient presents to the wound care center today for evaluation of left lower leg wound as referred by his PCP Dr. Arciniega. Patient reports that this wound started at the end of June secondary to likely minor trauma. He states that this wound started off much smaller but then just continued to enlarge. He eventually presented to the ED with this wound where he was subsequently admitted for cellulitis and started on IV antibiotics. He was discharged a couple days later with a course of cefdinir. During his hospitalization, he was diagnosed with type 2 diabetes. He was started on me tformin and reports his sugars at home have been very good, usually in the low 100s. He does have notable lipodermatosclerosis/chronic venous stasis skin changes which he reports have been present for many years. He denies any prior history of wounds. His legs do tend to swell, but he has never worn compression stockings. He denies any history of claudication type symptoms, prior endovascular interventions. Other than diabetes, no significant past medical history. At home, he has been caring for this wound by washing with soap and water and wrapping and dry sterile dressing. Unable to get [facility], they state he does not qualify. Subjective Subjective No new wounds. Continues to make positive progress towards healing LLE wound. No new/worsening pain, redness, focal swelling, drainage, N/V, F/C. He reports he is managing dressing changes well, continues to decline offer for nurse visits. Objective Data Objective Data Vital Signs: Vital Signs Temp Pulse Resp BP O2 Del Method 96.9 F L 99 16 140/82 H Room Air 10/19/22 13:05 10/19/22 13:05 10/19/22 13:05 10/19/22 13:05 10/19/22 13:05 Oxygen Delivery Method Room Air Charges/Coding Procedures Integumentary 111xxx-113xx: 18083 Ai subq tissue 20 sq cm/< Physical Exam Const alert, oriented x3 and no apparent distress General Appearance: cooperative, comfortable and anxious HEENT normocephalic, head/scalp atraumatic, hearing grossly normal bilaterally, external ears normal and external nose normal Eyes EOMs intact bilaterally General Eye: normal appearance of both eyes Resp normal respiratory effort, normal air movement, no retractions, no use of accessory muscles and clear to auscultation bilaterally Effort and Inspection: able to speak in complete sentences and symmetric chest movement; Negative for labored, stridor or audible wheezes Cardio regular rate and regular rhythm Peripheral Pulses: pulses 2+ throughout Extremity Extremity Narrative: Bilateral lower extremities with significant edema and venous stasis skin changes. Palpable DP/PT pulses bilaterally. Wound as described below. Skin Wounds: wounds noted Wound Narrative: small venous wound to LLE, same area as initial wound but much smaller in size. Wound bed with red granulation tissue. No significant tenderness to palpation, fluctuance/induration, foul-smelling drainage. Neuro oriented x3, CN's II-XII intact bilaterally, moves all extremities, no focal motor deficits and no sensory deficits noted Psych mental status grossly normal, cooperative, affect normal, speech normal and activity/motor behavior normal Debridement Note Debridement Note Wound debrided: Left lower leg Laterality: Left Type of Debridement: Excisional debridement Anesthesia Used: 5% Lidocaine Gel Depth: Down to and including healthy tissue Percentage of wound debrided: 100 Instrument Used: 5mm curette Tissue Removed: slough, devitalized tissue Amount of bleeding with debridement: Mild Bleeding Controlled with: Pressure Patient tolerated procedure: Patient tolerated procedure well Post-Debridement Measurements and Additional Note: Post-Debridement Measurements/Treatment - Nurse 1 - General Ulcer Assessment Start: 09/28/22 12:55 Freq: Status: Active Protocol: YI Activity Type Activity Date Activity User E-sign Co-sign Detail Recorded Client Recorded Date Recorded By Document 09/28/22 12:55 [id number] 09/28/22 12:57 Document 10/05/22 12:48 [facility] [id number] 10/05/22 12:53 [facility] Document 10/12/22 11:08 [facility] [id number] 10/12/22 11:12 [facility] Document 10/19/22 13:05 [facility] [id number] 10/19/22 13:11 [facility] 09/28/22 10/05/22 10/12/22 12:55 12:48 11:08 - Today's Visit Information Type of service Nurse-only Follow-up Visit Follow-up Visit Visit (Physician/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 PASTER (Physician/SCREEN PRINTING PASTER ) ) Arrival Mode Ambulatory, Ambulatory, Ambulatory, Walker Walker Walker Transfer Assistance None Patient Identification Verified (Name & Yes Yes Yes ) Patient Requires Transmission-Based No No Precautions Finger Stick Blood Sugar(mg/dl) (if 105 100 indicated): Blood Sugar Stated by Stated by Patient Patient Vital Signs Temperature (97.8 F-99.1 F) 96.5 F L 95.6 F L 95.9 F L Temperature Source Temporal Temporal Temporal Pulse Rate (60-100) 78 89 101 H Pulse Location Monitor Monitor Monitor Respiratory Rate (12-18) 16 18 20 H Respiratory rate source Observation Observation Observation Oxygen Delivery Method Room Air Blood Pressure (90/60-120/80) 157/85 H 159/87 H 127/80 H Blood Pressure Mean (mm Hg) 109 111 95 Source Monitor Monitor Monitor Position Semi-Fowlers Sitting Sitting Blood Pressure Location Right Arm Left Arm Left Arm History Since Last Visit- (Skip if this is Patient's initial visit) Have you changed medications since your No No No last visit? Any new allergies or adverse reactions No No No Had a fall/change in ADL's that may No No No increase risk of falls Signs or symptoms of abuse and/or No No No neglect since last visit Have you been in the hospital since your No No No last visit? Has dressing in place as prescribed Yes Yes Yes Has compression in place as prescribed Yes Yes Yes Has offloadiing in place as prescribed N/A N/A N/A Experienced any changes in pain level or No No No management Left Footwear Regular Shoe Regular Shoe Regular Shoe Right Footwear Regular Shoe Regular Shoe Regular Shoe Pain Scale: 0-10 Numeric Is Patient Pain Free? Yes Yes Yes 10/19/22 13:05 - Today's Visit Information Type of service Follow-up Visit (Physician/SCREEN PRINTING PASTER ) Arrival Mode Ambulatory, Walker Transfer Assistance None Patient Identification Verified (Name & Yes ) Patient Requires Transmission-Based No Precautions Finger Stick Blood Sugar(mg/dl) (if indicated): Blood Sugar Vital Signs Temperature (97.8 F-99.1 F) 96.9 F L Temperature Source Temporal Pulse Rate (60-100) 99 Pulse Location Monitor Respiratory Rate (12-18) 16 Respiratory rate source Observation Oxygen Delivery Method Room Air Blood Pressure (90/60-120/80) 140/82 H Blood Pressure Mean (mm Hg) 101 Source Monitor Position Sitting Blood Pressure Location Left Arm History Since Last Visit- (Skip if this is Patient's initial visit) Have you changed medications since your No last visit? Any new allergies or adverse reactions No Had a fall/change in ADL's that may No increase risk of falls Signs or symptoms of abuse and/or No neglect since last visit Have you been in the hospital since your No last visit? Has dressing in place as prescribed Yes Has compression in place as prescribed Yes Has offloadiing in place as prescribed N/A Experienced any changes in pain level or No management Left Footwear Regular Shoe Right Footwear Pain Scale: 0-10 Numeric Is Patient Pain Free? Yes WC - Nurse 1 - General Ulcer Measurement Start: 09/28/22 12:55 Freq: Status: Active Protocol: Activity Type Activity Date Activity User E-sign Co-sign Detail Recorded Client Recorded Date Recorded By Document 09/28/22 12:55 [id number] 09/28/22 12:57 Document 10/05/22 12:48 [facility] [id number] 10/05/22 12:53 [facility] Document 10/12/22 11:08 [facility] [id number] 10/12/22 11:12 BMF Edit Result 10/12/22 11:08 [facility] (1) [id number] 10/12/22 11:16 Document 10/19/22 13:05 [facility] [id number] 10/19/22 13:11 BMF (1) #1 L lateral leg - Current Size (cm) - Length => 3.8 - Current Size (cm) - Width => 3.5 - Current Size (cm) - Depth => 0.1 - Total Square Cm => 13.30 - Photo Taken => Yes - Epithelialization => Small 1-33% - Tunneling => No - Undermining/Tunneling => No - Circular Undermining => No - Exudate Amt => Medium - Exudate Type => Serosanguineous - Wound Margin => Flat & Intact - Granulation Amt => Large (67-100%) - Granulation Quality => Red - Slough/Fibrin => Yes - Necrosis Amt => Small (1-33%) - Structure Exposed => N/A - Texture (Alba-wound Skin Appearance) => Assessed,Localized => Edema - Moisture (Alba-wound Skin Appearance) => Maceration,Dry/ => Scaly - Color (Alba-wound Skin Appearance) => Assessed, => Hemosiderin => Staining - Tenderness on Palpation (Alba-wound => No Skin Appearance) - Ulcer Cleansing => Wound Cleanser - Foul Odor after Cleansing => No - Anesthetic Used => 5% Lidocaine Gel 09/28/22 10/05/22 10/12/22 12:55 12:48 11:08 Wound Center Nurse 1 #1 L lateral leg -Combined with other wound No No -Current Size (cm) - Length 3.5 0.9 3.8 -Current Size (cm) - Width 3.0 3 3.5 -Current Size (cm) - Depth 0.1 0.1 0.1 -Total Square Cm 10.50 2.7 13.30 -Date of Last Picture (Recall this 10/05/22 field) -Photo Taken Yes Yes Yes -Epithelialization Small 1-33% Medium 34-66% Small 1-33% -Tunneling No No No -Undermining/Tunneling No No No -Circular Undermining No No No -Exudate Amt Medium Medium Medium -Exudate Type Serosanguineous Serosanguineous Serosanguineous -Wound Margin Flat & Intact Distinct, Flat & Intact Outline Attached -Granulation Amt Large (67-100%) Small (1-33%) Large (67-100%) -Granulation Quality Pale Red Red -Slough/Fibrin Yes Yes Yes -Necrosis Amt Small (1-33%) Large (67-100%) Small (1-33%) -Necrotic Tissue Type Adherent Slough Eschar -Structure Exposed N/A N/A -Texture (Alba-wound Skin Appearance) Assessed, Assessed, Assessed, Localized Edema Scarring Localized Edema -Moisture (Alba-wound Skin Appearance) Assessed Assessed Maceration,Dry/ Scaly -Color (Alba-wound Skin Appearance) Assessed, Assessed Assessed, Hemosiderin Hemosiderin Staining Staining -Temperature (Alba-wound Skin No Abnormality No Abnormality Appearance) (Pt Warm) (Pt Warm) -Tenderness on Palpation (Alba-wound No No No Skin Appearance) -Ulcer Cleansing Wound Cleanser Soap and Water Wound Cleanser -Foul Odor after Cleansing No No No -Anesthetic Used 5% Lidocaine 5% Lidocaine 5% Lidocaine Gel Gel Gel -Wound Comment(s) WOUND IMPROVED. NEW ALBA WOUND ULCERATION CAUSED BY LG BANDAID PT WEARING Lower Limb Edema Present Yes Yes Yes Left Calf (cm) 48 49.8 49.1 Left Ankle (cm) 28 29.7 27.8 10/19/22 13:05 Wound Center Nurse 1 #1 L lateral leg -Combined with other wound No -Current Size (cm) - Length 0.1 -Current Size (cm) - Width 0.1 -Current Size (cm) - Depth 0.1 -Total Square Cm 0.01 -Date of Last Picture (Recall this 10/19/22 field) -Photo Taken Yes -Epithelialization Large 67-100% -Tunneling No -Undermining/Tunneling No -Circular Undermining No -Exudate Amt Small -Exudate Type Serosanguineous -Wound Margin -Granulation Amt -Granulation Quality -Slough/Fibrin -Necrosis Amt -Necrotic Tissue Type -Structure Exposed -Texture (Alba-wound Skin Appearance) Assessed -Moisture (Alba-wound Skin Appearance) Assessed -Color (Alba-wound Skin Appearance) Assessed -Temperature (Alba-wound Skin No Abnormality Appearance) (Pt Warm) -Tenderness on Palpation (Alba-wound No Skin Appearance) -Ulcer Cleansing Soap and Water -Foul Odor after Cleansing No -Anesthetic Used 4% Lidocaine Solution -Wound Comment(s) Lower Limb Edema Present Yes Left Calf (cm) 46.9 Left Ankle (cm) 27.6 WC - Nurse 2 - General Ulcer CM Notes Start: 09/28/22 12:55 Freq: Status: Active Protocol: Activity Type Activity Date Activity User E-sign Co-sign Detail Recorded Client Recorded Date Recorded By Document 09/28/22 14:44 PL [id number] 09/28/22 14:46 PL Document 10/05/22 14:22 PL [id number] 10/05/22 14:22 PL Document 10/12/22 11:49 PL [id number] 10/12/22 11:50 PL Document 10/19/22 14:24 PL [id number] 10/19/22 14:25 PL 09/28/22 10/05/22 10/12/22 14:44 14:22 11:49 Wound Center Nurse 2 #1 L lateral leg -Time 13:02 11:19 -Correct Patient Yes Yes -Correct Side, Site, Position Yes Yes -Correct Procedure Yes Yes -Procedure Performed Yes No Yes -Type of Procedure Debridement Debridement -Clinical Debridement Subcutaneous Subcutaneous -Tissue Removed Subcutaneous Subcutaneous -Post Debridement (cm) - Length 4.7 2.8 -Post Debridement (cm) - Width 1.0 3.9 -Post Debridement (cm) - Depth 0.1 0.1 -Total Square (Post) (cm) 4.70 10.92 -Area of Debridement (cm) - Length 4.7 2.8 -Area of Debridement (cm) - Width 1.0 3.9 -Total Square (Area) (cm) 4.70 10.92 -Tunneling No No -Undermining/Tunneling No No -Circular Undermining No No -Wound/Ulcer Outcome Not Healed Healed- Not Healed Epithelialized -Ulcer Cleansing Rinsed/ Rinsed/ Irrigated with Irrigated with Saline Saline -Foul Odor after Cleansing No No -Bioengineered Tissue No No -Bleeding Controlled with Pressure Pressure -Treatment Response Procedure Procedure Tolerated Well Tolerated Well -Debridement - Subq, 1st 20sq cm Yes Yes Pain Scale: 0-10 Numeric Is Patient Pain Free? Yes Yes Yes 10/19/22 14:24 Wound Center Nurse 2 #1 L lateral leg -Time 13:20 -Correct Patient Yes -Correct Side, Site, Position Yes -Correct Procedure Yes -Procedure Performed Yes -Type of Procedure Debridement -Clinical Debridement Subcutaneous -Tissue Removed Subcutaneous -Post Debridement (cm) - Length 5.0 -Post Debridement (cm) - Width 1.5 -Post Debridement (cm) - Depth 0.1 -Total Square (Post) (cm) 7.50 -Area of Debridement (cm) - Length 5.0 -Area of Debridement (cm) - Width 1.5 -Total Square (Area) (cm) 7.50 -Tunneling No -Undermining/Tunneling No -Circular Undermining No -Wound/Ulcer Outcome Not Healed -Ulcer Cleansing Rinsed/ Irrigated with Saline -Foul Odor after Cleansing No -Bioengineered Tissue No -Bleeding Controlled with Pressure -Treatment Response Procedure Tolerated Well -Debridement - Subq, 1st 20sq cm Yes Pain Scale: 0-10 Numeric Is Patient Pain Free? Yes - Nurse 3 - General Ulcer D/C NN Start: 09/28/22 12:55 Freq: Status: Active Protocol: Activity Type Activity Date Activity User E-sign Co-sign Detail Recorded Client Recorded Date Recorded By Document 09/28/22 14:44 PL [id number] 09/28/22 14:46 PL Document 10/05/22 13:28 [id number] 10/05/22 13:29 Document 10/12/22 11:30 [facility] [id number] 10/12/22 11:31 [facility] Document 10/19/22 13:44 [facility] [id number] 10/19/22 13:45 [facility] 09/28/22 10/05/22 10/12/22 14:44 13:28 11:30 Pain Scale: 0-10 Numeric Is Patient Pain Free? Yes Yes Yes Wound Care Center Nurse 3 #1 L lateral leg -Ulcer Cleansing Rinsed/ Rinsed/ Wound Cleanser Irrigated with Irrigated with Saline Saline -Foul Odor after Cleansing No No No -Primary Dressing Applied Fibracol Plus Fibracol Plus Fibracol Plus 4x4,Mepilex 4x4,Mepilex 4x4,Mepilex Border Border Border -Other Dressing drsg per rn -Fibracol Plus 4x4 1 1 1 -Mepilex Border 1 1 1 Bilateral -Tubular Bandage Single Layer Single Layer Double Layer -Size of Tubigrip Used Size E Size E Size E -Size E ($) 4 2 2 -Size F ($) Treatment Response Procedure Tolerated Well WC - Visit Discharge Discharge Condition Stable Stable Stable Ambulatory Status Ambulatory Ambulatory, Ambulatory, Walker Walker Transportation Private Auto Private Auto Private Auto Medication Reconcilliation completed & Yes provided to patient/care provider Clinical Summary of Care Provided Yes 10/19/22 13:44 Pain Scale: 0-10 Numeric Is Patient Pain Free? Yes Wound Care Center Nurse 3 #1 L lateral leg -Ulcer Cleansing Rinsed/ Irrigated with Saline -Foul Odor after Cleansing No -Primary Dressing Applied Fibracol Plus 4x4,Mepilex Border -Other Dressing -Fibracol Plus 4x4 1 -Mepilex Border 1 Bilateral -Tubular Bandage Double Layer -Size of Tubigrip Used Size F -Size E ($) -Size F ($) 2 Treatment Response Procedure Tolerated Well WC - Visit Discharge Discharge Condition Stable Ambulatory Status Ambulatory, Walker Transportation hospital transport Medication Reconcilliation completed & provided to patient/care provider Clinical Summary of Care Provided Assessment/Plan Assessment/Plan (1) Non-pressure chronic ulcer of unspecified part of unspecified lower leg limited to breakdown of skin: CODE(S): L97.901 - Non-pressure chronic ulcer of unspecified part of unspecified lower leg limited to breakdown of skin PLAN: Recurrent LLE wound is well-healing. Really two just two small portions of wound remaining, though I measured as a cluster. Continue to apply fibracol, super absorber dressing over top. Change dressing 3 times weekly or more often as needed to keep clean and dry. Continue double tubigrips this week. Continue to encourage leg elevation when possible. I am hopeful that it will be healed at next visit. Anticipate measuring him for compression stockings to be worn consistently to prevent future wound recurrence. No signs/symptoms of infection this week. I will be out next Saturday. We tried to arrange for a nurse visit next week, but unfortunately not able to coordinate transportation for patient. He will therefore return to clinic in 2 weeks.
== END 2022-10-21 23:59 | disposition home or self-care (01) ==
LOC: WC 13:00
PROVIDERS: PCP Internal Medicine; Visit Provider Physician Assistant
DX: L97.921 Non-pressure chronic ulcer of unspecified part of left lower leg limited to breakdown of skin (principal); E11.9 Type 2 diabetes mellitus without complications; L25.9 Unspecified contact dermatitis, unspecified cause; I83.11 Varicose veins of right lower extremity with inflammation; I83.12 Varicose veins of left lower extremity with inflammation; Z79.84 Long term (current) use of oral hypoglycemic drugs
CPT/HCPCS: 11042; 99213; G0463

== ENCOUNTER → 2022-10-24 | Outpatient (CLI) | payer MEDICARE, MEDICAID, SELFPAY ==
[2022-10-24 16:05] LABS: ALB/GLOB Ratio 0.6 RATIO (0.9-2.4); AST(SGOT) 32 U/L (15-37); Alanine Aminotransfer ALT/SGPT 32 U/L (16-61); Albumin, Serum 3.4 g/dL (3.2-5.0); Alkaline Phosphatase 82 U/L (45-117); Anion Gap 7 (5-15); BUN 12 mg/dL (7-18); BUN/Creat Ratio 11.1 RATIO (10-20); Calcium,Total 9.9 mg/dL (8.5-10.1); Chloride 105 mmol/L (98-107); Cholesterol 131 mg/dL (200); Creatinine, Serum 1.08 mg/dL (0.70-1.30); EST Glomerular Filtration Rate 75 mL/min (>60); Est Glom Filt Rate - Afr Amer 90 mL/min (>60); Globulin 5.8 g/dL (2.2-4.2); Glucose 102 mg/dL (74-106); High Density Lipoprotein 30 mg/dL; Potassium 4.1 mmol/L (3.5-5.1); Protein, Total 9.2 g/dL (6.4-8.2); Sodium Level 136 mmol/L (136-145); Thyroid Stim Hormone (TSH) 1.73 uIU/mL (0.358-3.74); Triglycerides 126 mg/dL; Very Low Density Lipoprotein 25 mg/dL (5-40)
[2022-10-25 11:18] LABS: Mucous, Urine 0 SEEN /hpf (<or=2+); Red Blood Cells-Urine 0 SEEN /hpf (0-5)
[2022-10-25 12:13] LABS: Color, Urine Yellow (Yellow); Glucose, Dipstick Normal (Normal); Ketone-Dipstick 5 mg/dl (Negative); Leukocyte Esterase-Dipstick 100 /ul (Negative); Nitrite-Dipstick Negative (Negative); Occult Blood-Urine Negative /ul (Negative); Protein-Dipstick 30 mg/dl (Negative); Urine Clarity Cloudy (Clear); Urine Urobilinogen 4 mg/dl (Normal)
[2022-10-25 12:16] LABS: Urine Bilirubin Dipstick 1 mg/dL (Negative)
[2022-10-25 12:20] LABS: White Blood Cells 0-5 SEEN /hpf (0-5)
[2022-10-25 12:21] LABS: Bacteria 4+ /hpf (None Seen); Squamous Epithelial Cells - UA 0-5 SEEN /hpf (0-5)
[2022-10-25 12:41] LABS: Microalbumin,Random Urine 94.3 mg/L (NO RANGE EST.); Microalbumin:Creatinine Ratio 32.9 mg/g CRE (<30 mg/g CRE)
== END | disposition home or self-care (01) ==
LOC: BIMLAB 11:46
PROVIDERS: PCP Internal Medicine; Referring Provider Internal Medicine; Visit Provider Internal Medicine
DX: E11.65 Type 2 diabetes mellitus with hyperglycemia (principal); R82.90 Unspecified abnormal findings in urine
CPT/HCPCS: 36415; 80053; 80061; 81001; 82043; 82570; 84443; 87086; 87088

== ENCOUNTER 2022-11-02 13:16 | Outpatient (RCR) | payer MEDICARE, MEDICAID, SELFPAY ==
[2022-10-22 00:17] VITALS: BP 140/82; PULSE 99; RESP 16; TEMP 36.1
[2022-11-02 13:05] VITALS: BP 138/74; PULSE 94; RESP 16; TEMP 35.3
--- NOTE | 2022-11-06 10:41 | PN.PCM_ITS ---
History of Present Illness Date of Service: 11/02/22 Chief Complaint: Left lower leg wound History of Wound: Patient presents to the wound care center today for evaluation of left lower leg wound as referred by his PCP Dr. Arciniega. Patient reports that this wound started at the end of June secondary to likely minor trauma. He states that this wound started off much smaller but then just continued to enlarge. He eventually presented to the ED with this wound where he was subsequently admitted for cellulitis and started on IV antibiotics. He was discharged a couple days later with a course of cefdinir. During his hospitalization, he was diagnosed with type 2 diabetes. He was started on me tformin and reports his sugars at home have been very good, usually in the low 100s. He does have notable lipodermatosclerosis/chronic venous stasis skin changes which he reports have been present for many years. He denies any prior history of wounds. His legs do tend to swell, but he has never worn compression stockings. He denies any history of claudication type symptoms, prior endovascular interventions. Other than diabetes, no significant past medical history. At home, he has been caring for this wound by washing with soap and water and wrapping and dry sterile dressing. Unable to get [facility], they state he does not qualify. Subjective Subjective Patient's wounds are healed today. His lower extremity edema is improved with adequate, consistent compression and elevation. Objective Data Objective Data Vital Signs: Vital Signs Temp Pulse Resp BP O2 Del Method 95.6 F L 94 16 138/74 H Room Air 11/02/22 13:05 11/02/22 13:05 11/02/22 13:05 11/02/22 13:05 11/02/22 13:05 Oxygen Delivery Method Room Air Charges/Coding Visit Charges Office Visits / Consults: 28202 OV L2 Est Physical Exam Const alert, oriented x3 and no apparent distress General Appearance: cooperative, comfortable and anxious HEENT normocephalic, head/scalp atraumatic, hearing grossly normal bilaterally, external ears normal and external nose normal Eyes EOMs intact bilaterally General Eye: normal appearance of both eyes Resp normal respiratory effort, normal air movement, no retractions, no use of accessory muscles and clear to auscultation bilaterally Effort and Inspection: able to speak in complete sentences and symmetric chest movement; Negative for labored, stridor or audible wheezes Cardio regular rate and regular rhythm Peripheral Pulses: pulses 2+ throughout Extremity Extremity Narrative: Bilateral lower extremities with significant edema and venous stasis skin changes. Palpable DP/PT pulses bilaterally. Neuro oriented x3, CN's II-XII intact bilaterally, moves all extremities, no focal motor deficits and no sensory deficits noted Psych mental status grossly normal, cooperative, affect normal, speech normal and activity/motor behavior normal Debridement Note Debridement Note No debridement was completed: No debridement was completed today Assessment/Plan Assessment/Plan (1) Non-pressure chronic ulcer of unspecified part of unspecified lower leg limited to breakdown of skin: CODE(S): L97.901 - Non-pressure chronic ulcer of unspecified part of unspecified lower leg limited to breakdown of skin (2) Chronic ulcer of left lower leg: CODE(S): L97.929 - Non-pressure chronic ulcer of unspecified part of left lower leg with unspecified severity PLAN: Plan Patient's wounds are healed today. I recommend he continue to wear measured compression daily indefinitely for prevention of wound recurrence and management of his lower extremity edema/venous insufficiency. I provided a prescription for measured compression stockings. We discussed available donning assist devices that may be helpful for him. He is discharged from wound care today. He will return as needed.
== END 2022-11-02 14:34 | disposition home or self-care (01) ==
LOC: WC 13:16
PROVIDERS: PCP Internal Medicine; Visit Provider Physician Assistant
DX: Z09 Encounter for follow-up examination after completed treatment for conditions other than malignant neoplasm (principal); E11.9 Type 2 diabetes mellitus without complications; I87.8 Other specified disorders of veins; R60.0 Localized edema; Z79.84 Long term (current) use of oral hypoglycemic drugs; Z79.899 Other long term (current) drug therapy
CPT/HCPCS: 99213; G0463

== ENCOUNTER 2023-04-29 13:00 | Outpatient (RCR) | payer MEDICARE, MEDICAID, SELFPAY ==
--- NOTE | 2022-12-24 16:53 | HP.PTEVAL_ITS ---
Patient's Visit Information Visit Information Visit Information: JACKELIN ZENDEJAS is a 57 year old M referred to Physical Therapy by Dr. Queenie Arciniega MD with a diagnosis of debility, imbalance, difficulty with gait. Date of Evaluation: 12/11/22 Physical Therapist: Wicho Merchant DPT Visit Plan Frequency: 2x /Week Duration: 6 Weeks Plan: Start with BLE strengthening, balance training, gait progression. Add in gym exercises as tolerated. Subjective Subjective: Pt. is here today for his initial evaluation with diagnosis of general debility. Pt. reports having increased difficulty getting around the house and especially getting up and down from chair. Pt. reports no major pain. He uses a FWW for outside ambulation, no AD in home. Pt. reports no falls. Pt. reports I want to get better with my balance and getting up and down. Pt. did have a wound, but is better now. He reports overall deconditioned from lack of mobility. I want to be stronger. Pt. reports the hardest thing is getting out of his chair. He does use a lift chair, but at times challenges him self with it. Pt. reports no pain currently. He would like to work in therapy to become more independent with all home and recreational mobility. Occupation: disability. Lives by him self. Objective Objective: POSTURE: Pt. has increased thoracic kyphosis, extreme FH posture. Pt. has difficulty correcting this posture. Pt. is able to stand with out AD, but prefers to use. PALPATION: Pt. has no pain with palpation of BLEs. Pt. has 1+ pitting edema in BLEs. Pt. reports this is normal for him. NEURO: Pt. has slight decreased sensation in BLEs to light touch. Pt. is able to rise on heels and toes, but has difficulty with this, requires balance aide to complete. ROM: Pt. has tight B HS. Lumbar spine: mod loss throughout. He does have tight hip ER and IR as well. MMT: RLE: ankle 5/5 throughout; knee: ext 4+/5, flexion 4+/5; hip: flexion 4/5, abd 4-/5, ext 4/5. LLE: ankle 5/5 throughout; knee: ext 4+/5, flexion 4+/5; hip: flexion 4/5, abd 4-/5, ext 4/5. core strength- poor. GAIT: Pt. ambulates with FWW with fwrd lean onto AD. Pt. has decrease step length bilaterally. Pt. has some lateral sway, but not much. GAIT without AD. Pt. has increased fwrd posture, increased lateral sway and difficulty with directional changes. Will use killian when available for stability. STAIRS: Pt. is able to complete with reciprocal pattern with heavy use of BHR. Pt. reports higher levels of fatigue as well. Balance/Special Test Scores Lower Extremity Functional Score: 32 TUG Test Time Seconds: 27 30 Second Chair Rise Test Seconds: 8 6 Minute Walk Test: Pt. ambulated 281feet with FWW in 2:01sec. Pt. reported increased fatigue as limiting factor. SpO2 maintain above 90% throughout. Goals Goal 1:: LTG: Pt. to be I with HEP for BLE strengthening and balance. Goal Time Frame: 4-6 Weeks Goal 2:: LTG: pt. to be able to rise from regular height chair with use of 1 UE without assistance Goal Time Frame: 2-4 Weeks Goal 3:: LTG: Pt. to be able to complete TUG with time less than 20sec. Goal Time Frame: 4-6 Weeks Goal 4:: LTG: pt. to complete 6 MWT with distance of greater than 500' with FWW. Goal Time Frame: 4-6 Weeks Goal 5:: LTG: Pt. to increase BLE strength to at least 5-/5 throughout. Goal Time Frame: 4-6 Weeks Rehabilitation Potential Physical Therapy Diagnosis: Pt. has signs and symptoms consistent with debility, imbalance and difficulty with gait. He has some hypomobility, weakness and imbalance and would benefit from PT to address the above limitations progressing back to all household activities without limitations. Rehabilitation Potential: Good Anticipated Interventions Patient/Client Instruction: Educate patient on: Condition, Plan of Care, Risk Factors and Benefits of Fitness Program For the Purpose of:: To foster healthy habits, To improve decision making, To facilitate caregiver knowledge, To improve self management, To prevent re-injury and To improve ability to perform tasks related to life management Therapeutic Exercise to Include: Strength training, Power training, Endurance training, Balance training, Coordination, Postural training, Gait and locomotor training, Passive ROM and Active ROM For the Purpose of:: To decrease pain, To decrease swelling/inflammation, To increase ROM, To improve nutrient delivery to tissue, To increase oxygenation perfusion and To improve muscle performance and motor function Text: Thank you for the opportunity to evaluate your patient. For Medicare and Medicare HMO plans, please review the plan of care and approve it. It will need to be FAXED BACK to us at [phone] for Medicare purposes. For Medicare only, by signing this I certify the plan of care. Please let me know if there are questions or concerns regarding this plan of care. Physician Signature: Date:
--- NOTE | 2023-02-04 15:29 | HP.PTREVAL ---
Re-Evaluation Intro: Dr. Queenie Arciniega MD, It has been my pleasure to treat JACKELIN ZENDEJAS over the last 10 visits for debility, imbalance, difficulty with gait. Please see the progress note below for an update on the physical therapy plan of care! Subjective Subjective: Pt. reports no pain today. Pt. reports walking well in home. He also reports some walking in the neighbor torres. Objective Objective/Function: Pt. did well with PT. HE continues to struggle with getting up and down to chairs of normal height. TU sec with assistance to rise form chair, ORTEGA. 6 MWT: 1056 feet with FWW. Pt. is progressing with gait and BLE strengthening, but does conitnue to struggle with getting up and down from seated positioning. He has a very fwrd flexed posture which more than likely adds to an anterior wt. shifted and fear of falling. I would like to continue with gym LE strengthening, but also add in sit to stand variations in order to increase his quad and glute strength. Plan Plan Plan: I will recert jackelin for another 4 weeks with focus on gym strengthening, but focus on glute and quad strengthening adding in sit to stand variations in order to increase stability with sit to stand mechanics. Balance/Gait/Functional tests Balance/Special Test Scores Lower Extremity Functional Score: 32 TUG Test Time Seconds: 31 Tug Test: >30sec.=impaired mobility 30 Second Chair Rise Test Seconds: 8 6 Minute Walk Test: 1056feet with FWW. Pt. ambulated the whole time, without rest periods. Goals Goals Goal 1:: LTG: Pt. to be I with HEP for BLE strengthening and balance. Goal Time Frame: 4-6 Weeks Goal Progress: Progressing Goal 2:: LTG: pt. to be able to rise from regular height chair with use of 1 UE without assistance Goal Time Frame: 2-4 Weeks Goal Progress: Progressing Goal 3:: LTG: Pt. to be able to complete TUG with time less than 20sec. Goal Time Frame: 4-6 Weeks Goal Progress: Progressing Goal 4:: LTG: pt. to complete 6 MWT with distance of greater than 500' with FWW. Goal Time Frame: 4-6 Weeks Goal Progress: Goal Met Goal 5:: LTG: Pt. to increase BLE strength to at least 5-/5 throughout. Goal Time Frame: 4-6 Weeks Goal Progress: Goal Met Anticipated Interventions Anticipated Interventions Patient/Client Instruction: Educate patient on: Condition, Plan of Care, Risk Factors and Benefits of Fitness Program For the Purpose of:: To foster healthy habits, To improve decision making, To facilitate caregiver knowledge, To improve self management, To prevent re-injury and To improve ability to perform tasks related to life management Therapeutic Exercise to Include: Strength training, Power training, Endurance training, Balance training, Coordination, Postural training, Gait and locomotor training, Passive ROM and Active ROM For the Purpose of:: To decrease pain, To decrease swelling/inflammation, To increase ROM, To improve nutrient delivery to tissue, To increase oxygenation perfusion and To improve muscle performance and motor function Re-Evaluation Ending Re-evaluation ending: Please do not hesitate to contact me at [phone] by phone or if you have questions or concerns regarding this new plan of care! Sincerely, Wicho Merchant DPT
--- NOTE | 2023-03-05 11:23 | HP.PTREVAL ---
Re-Evaluation Intro: Dr. Queenie Arciniega MD, It has been my pleasure to treat JACKELIN ZENDEJAS over the last 15 visits for debility, imbalance, difficulty with gait. Please see the progress note below for an update on the physical therapy plan of care! Subjective Subjective: Pt. reports no pain or problem today pre PT. Pt. reports being 90% better overall. Pt. is still having some trouble getting up off of chair height surfaces. Needs raised seat or lift chair to stand out of. Objective Objective/Function: sit to stand without use of UEs: pt. completed from 26inch, 25 inch, 24 inch, 23 inch, increased difficulty from 22 inch (needed to rock to complete), min A from 21 inch, and mod A from 20 inch. STAIRS: Pt. completed with reciprocal pattern ascending with 2 HR, descending with 2 HR step to pattern. Pt. has 1 HR at home and uses folded FWW to assist. GAIT: Pt. does not use AD in the home, uses FWW for longer walks and with stair negotiation. Pt. ambulated 300' with out AD with CGA without LOB, he requires frequent VCing to slow his pace, better with walker. Plan Plan Plan: Pt. will not able to attend a gym post PT. I would like him to work on progression of HEP for quad strengthening ie squats, sit to stand, standing balance exercises, stairs. Add in postural strength to assist with improved posture for better center of gravity. Balance/Gait/Functional tests Balance/Special Test Scores Lower Extremity Functional Score: 51 TUG Test Time Seconds: 31 Tug Test: >30sec.=impaired mobility 30 Second Chair Rise Test Seconds: 8 6 Minute Walk Test: 1056feet with FWW. Pt. ambulated the whole time, without rest periods. Goals Goals Goal 1:: LTG: Pt. to be I with HEP for BLE strengthening and balance. Goal Time Frame: 4-6 Weeks Goal Progress: Progressing Goal 2:: LTG: pt. to be able to rise from regular height chair with use of 1 UE without assistance Goal Time Frame: 2-4 Weeks Goal Progress: Progressing Goal 3:: LTG: Pt. to be able to complete TUG with time less than 20sec. Goal Time Frame: 4-6 Weeks Goal Progress: Progressing Goal 4:: LTG: pt. to complete 6 MWT with distance of greater than 500' with FWW. Goal Time Frame: 4-6 Weeks Goal Progress: Goal Met Goal 5:: LTG: Pt. to increase BLE strength to at least 5-/5 throughout. Goal Time Frame: 4-6 Weeks Goal Progress: Goal Met Goal 6:: LTG: Pt. to negotiate steps with reciprocal pattern with use of 1 HR to allow for easier access in/out of home. Goal Time Frame: 4-6 Weeks Anticipated Interventions Anticipated Interventions Patient/Client Instruction: Educate patient on: Condition, Plan of Care, Risk Factors and Benefits of Fitness Program For the Purpose of:: To foster healthy habits, To improve decision making, To facilitate caregiver knowledge, To improve self management, To prevent re-injury and To improve ability to perform tasks related to life management Therapeutic Exercise to Include: Strength training, Power training, Endurance training, Balance training, Coordination, Postural training, Gait and locomotor training, Passive ROM and Active ROM For the Purpose of:: To decrease pain, To decrease swelling/inflammation, To increase ROM, To improve nutrient delivery to tissue, To increase oxygenation perfusion and To improve muscle performance and motor function Re-Evaluation Ending Re-evaluation ending: Please do not hesitate to contact me at [phone] by phone or if you have questions or concerns regarding this new plan of care! Sincerely, Wicho Merchant DPT
--- NOTE | 2023-04-29 14:42 | HP.PTDCSUM ---
Discharge Summary D/C summary: It has been my pleasure to treat PASCUAL ZENDEJAS referred by Dr. Queenie Arciniega MD, with the diagnosis of debility, imbalance, difficulty with gait for a total of 23 visit(s). Discharge Date: 04/29/23 Please see the following information for a summary of their discharge status. Subjective Subjective: Pt. reports being 90% better overall. Pt. reports no pain currently. He is only using the walker when goes on longer walks, ie walks to his sisters ~1 mile. He is no longer using in home. Pascual is doing his HEP daily. Overall Improvement % Improvement: 95 Objective Objective/Function: Stairs: Pt. is able to negotiate with 1 HR with reciprocal pattern without LOB 30 sec sit to stand rep test: 13 reps with occasional use of UEs. 6 MWT: 1138 feet without AD TU sec without AD GAIT: Pt. ambulates well without AD. Pt. has increased lateral sway with gait, but good stability. Pt. also has forward head posture and increased thoracic kyphosis. Goals Goal 1:: LTG: Pt. to be I with HEP for BLE strengthening and balance. Goal Progress: Goal Met Goal 2:: LTG: pt. to be able to rise from regular height chair with use of 1 UE without assistance Goal Progress: Goal Met Goal 3:: LTG: Pt. to be able to complete TUG with time less than 20sec. Goal Progress: Goal Met Goal 4:: LTG: pt. to complete 6 MWT with distance of greater than 500' with FWW. Goal Progress: Goal Met Goal 5:: LTG: Pt. to increase BLE strength to at least 5-/5 throughout. Goal Progress: Goal Met Goal 6:: LTG: Pt. to negotiate steps with reciprocal pattern with use of 1 HR to allow for easier access in/out of home. Plan Plan: Pt. to be DC from PT at this point in time. D/C Information Discharge Comments: Pt. is overall doing well, He reports being 90% better overall. He is I with HEP at this point in time. Pt. is walking 3-4 times per week as well. I want him to continue with his exercises and continue with his walking 3-4 times per week. Pt. consents. d/c sentence: If there are questions or concerns regarding this patient's physical therapy, please feel free to call me at [phone]. Thank you for the referral of this patient. Sincerely, Wicho Merchant, DPT Balance/Gait/Functional tests Balance/Special Test Scores Lower Extremity Functional Score: 61 TUG Test Time Seconds: 21 Tug Test: 20-30sec.=variable mobility 30 Second Chair Rise Test Seconds: 13 6 Minute Walk Test: 1138 feet without AD Improvement % Improvement: 95
== END 2023-04-29 19:00 | disposition home or self-care (01) ==
LOC: PT 13:00
PROVIDERS: PCP Internal Medicine; Referring Provider Internal Medicine; Visit Provider Internal Medicine
DX: R53.81 Other malaise (principal); R26.2 Difficulty in walking, not elsewhere classified
CPT/HCPCS: 97110; 97161; 97164

== ENCOUNTER → 2023-07-03 | Outpatient (CLI) | payer MEDICARE, MEDICAID, SELFPAY ==
--- OUTSIDE RECORDS SUMMARY | 2023-07-03 12:38 | XMS RPT_ITS | CCD ---
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 DX: EDEMA and venous stasis 1 Device 2 06/01/2017 Active Problems Active Problems Problem Classification Problem Date Documented Da te Episodic/Chronic Diabetes mellitus with complications (1 source) Diabetic mononeuropathy; Translations: [Diabetes mellitus due to underlying condition with diabetic mononeuropathy] Chronic Mycoses (1 source) Onychomycosis; Translations: [Tinea unguium] Episodic Nutritional deficiencies (3 sources) Deficiency of macronutrients; Translations: [Mild protein-calorie malnutrition] Onset: 12-05-2022 Chronic Other circulatory disease (3 sources) Peripheral vascular disease; Translations: [Other specified peripheral vascular diseases] Onset: 12-05-2022 Chronic Other circulatory disease (1 source) Abnormal peripheral pulse; Translations: [Other specified symptoms and signs involving the circulatory and respiratory systems] Episodic Other connective tissue disease (1 source) Pain of toe of left foot; Translations: [Pain in left toe(s)] Episodic Other connective tissue disease (1 source) Pain of toe of right foot; Translations: [Pain in right toe(s)] Episodic Other skin disorders (1 source) Callosity; Translations: [Corns and callosities] Episodic Residual codes; unclassified (1 source) Pain; Translations: [Pain, unspecified] 12-05-2022 Episodic Past or Other Problems Problem Classification Problem Date Documented Da te Episodic/Chronic Residual codes; unclassified (1 source) Pain, unspecified; Translations: [Pain] Onset: 12-05-2022 Episodic Results Test Name Value Interpretation Reference Range Facil ity Encounters Encounter Date Encounter Type Care Provider Facility Start: 06-04-2023 End: 06-04-2023 ambulatory IGOR FAROOQ Facility:[facility] Start: 12-05-2022 End: 12-05-2022 ambulatory [facility] Facility:[facility] Start: 12-05-2022 End: 12-05-2022 Patient encounter procedure Igor Farooq Work Phone: Podiatry Procedures Date Procedure Procedure Detail Performing Clinician Start: 12-05-2022 Radex foot complete minimum 3 views Igor Fernandezpaul Work Phone: Start: 06-01-2017 Lipid 1996 panel - S marizol or Plasma Xr Mob Work Phone: Plan of Treatment Date Care Activity Detail Author Start: 02-22-2023 Covid-19 Vaccine () Covid-19 Vaccine () [facility] Start: 02-22-2023 Influenza vaccination [facility] Start: 06-24-2022 DEPRESSION ASSESSMENT DEPRESSION ASSESSMENT [facility] Start: 06-01-2022 Lipid 1996 panel - Serum or Plasma Lipid Screening [facility] Start: 06-01-2022 LIPID SCREEN LIPID SCREEN [facility] Start: 01-13-2021 COVID-19 VACCINE (4 - Booster for Moderna series) COVID-19 VACCINE (4 - Booster for Moderna series) [facility] Start: 06-01-2020 DIABETES SCREEN DIABETES SCREEN [facility] Start: 06-01-2020 Diabetes Screening Diabetes Screening [facility] Start: 09-15-2019 PROSTATE CANCER SCREENING DISCUSSION PROSTATE CANCER SCREENING DISCUSSION [facility] Start: 2014 SHINGRIX VACCINE (1 of 2) SHINGRIX VACCINE (1 of 2) [facility] Start: 2009 COLOGUARD (FIT-DNA) COLOGUARD (FIT-DNA) [facility] Start: 2009 Colonoscopy COLONOSCOPY [facility] Start: 2009 COLORECTAL CANCER SCREENING COLORECTAL CANCER SCREENING [facility] Start: [address] COLONOGRAPHY [facility] Start: 2009 FECAL OCCULT BLOOD FECAL OCCULT BLOOD [facility] Start: 2009 SIGMOIDOSCOPY SIGMOIDOSCOPY [facility] Start: 09-15-1983 Urine microalbumin profile [facility] Start: 1982 HIV SCREENING HIV SCREENING [facility] Start: 1964 HEPATITIS B (1 of 3 - 3-dose series) HEPATITIS B (1 of 3 - 3-dose series) [facility] Start: 1965 Hepatitis B Vaccine (1 of 3 - 3-dose series) Hepatitis B Vaccine (1 of 3 - 3-dose series) [facility] End: 12-06-2023 [facility] V[facility] Lab Routine Diabetic mononeuropathy associated with diabetes mellitus due to underlying condition (HCC) Diminished pulses in lower extremity 1 Occurrences starting 12/05/2022 until 12/06/2023 [facility] Work Phone: Immunizations Immunization Date Immunization Notes Care Provider Peri gupta 08-02-2017 influenza virus vacc ine, unspecified formulation Xr Mob Work Phone: [facility] Payers Date Payer Category Payer Medicare [facility] DUAL COMPLETE HMO POS SNP [id number] 2022-Present [phone] [address] [place] [address] Medicare [id number] 2022 Unknown [id number] 2020 Medicaid MEDICAID [facility] MEDICAID [id number] 2020-Present [phone] [address] [place] [address] Medicaid [id number] 2020 Medicaid [id number] Social History Date Type Detail Facility [facility]: [facility] Start: 03-15-2017 Tobacco use and exposure Smoke less tobacco non-user [facility] Start: 12-05-2022 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 intake 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 Author Type: Physician Type: Progress Notes Filed: 06/04/2023 12:02 PM Note Text: Last time saw pcp: not documented in chart Subjective: This 57 year old male presents to clinic for diabetic foot check. Patient has the following complaints: painful callus and toenails. Patient admits to being diabetic for multiple years now. Patient -B/T/N in feet at this time. Patient -pain in legs when walking. No other pedal complaints at this time. No change in medications or medical history since last visit. PAIN EVALUATION No data found in the last 1 encounters. Hemoglobin A1C (%) Date Value 06/01/2017 5.7 PCP: Queenie Arciniega MD PAST MEDICAL HISTORY Diagnosis Date Diabetes mellitus (HCC) Hypertriglyceridemia Impaired fasting blood sugar Kidney stones Kyphosis Morbid obesity (HCC) Sepsis (HCC) past medical history of sepsis from wound infection Current Outpatient Medications Medication Sig RYBELSUS 7 mg tablet atorvastatin (LIPITOR) 10 mg tablet escitalopram oxalate (LEXAPRO) 10 mg tablet Compression Knee Highs KNEE HIGH COMPRESSION STOCKINGS 30-40 MM. DX: EDEMA and venous stasis urea (CARMOL) 40 % Apply to affected area once daily. urea (CARMOL) 40 % Apply to affected area once daily. metFORMIN (GLUCOPHAGE) 1,000 mg tablet (Patient not taking: Reported on 06/04/2023) urea (CARMOL) 40 % Apply to affected area twice daily. (Patient not taking: Reported on 06/04/2023) sertraline (ZOLOFT) 50 mg tablet Take 1 tablet by mouth once daily. (Patient not taking: Reported on 06/04/2023) No current facility-administered medications for this visit. ALLERGIES No Known Allergies PAST SURGICAL HISTORY Procedure Laterality Date PAST SURGICAL HISTORY OF 2008 lithotripsy TONSILLECTOMY HX FAMILY HISTORY Problem Relation Age of Onset Cancer Mother lung Cancer Father lung Cancer Maternal Grandmother Cancer Maternal Grandfather Cancer Paternal Grandmother Heart Paternal Grandfather Social History Tobacco Use Smoking status: Never Smokeless tobacco: Never Vaping Use Vaping Use: Never used Substance Use Topics Alcohol use: No Drug use: No REVIEW OF SYSTEMS GENERAL: Negative for Malaise, significant weight loss, fever RESPIRATORY: Negative for cough, wheezing and shortness of breath CARDIOVASCULAR: Negative for chest pain, leg swelling and palpitations GI: Negative for abdominal discomfort, blood in stools or black stools and change in bowel habits : Negative for dysuria, frequency and incontinence MUSCULOSKELETAL: Negative for joint pain or swelling, back pain, and muscle pain. SKIN: Negative for lesions, rash, and itching. HEMATOLOGY/LYMPHOLOGY Negative for prolonged bleeding, bruising easily, and swollen nodes. ENDOCRINE: Negative for cold or heat intolerance, polyuria, polydipsia and goiter. NEURO: negative The remainder of the review of systems is noncontributory. Objective: Patient presents to clinic ambulating in [facility] Constitutional: Pt is a well developed 57 year old male who is alert, oriented, cooperative and in no apparent distress. Eyes: Following during examination. No redness or drainage. Respiratory: RR normal and nonlabored. Even breathing. No evidence of distress. Psychology: Patient is engaged during conversation. Normal affect and mood. Does not appear depressed or anxious. Vasc: DP and PT pulses are palpable bilateral. CFT is less than 5 seconds bilateral. Skin temperature is warm to warm proximal to distal bilateral. There is mild edema or varicosities noted. Hair growth absent. Neuro: Protective sensation is decreased to the foot and toes when tested with the 5.07 SWM bilateral. Vibratory sensation is absent at the hallux bilateral. + Significant neurological defecits. Derm: Inspection and palpation performed. Nails 1-5 b/l are painful, discolored-yellow, thick, crumbly, dystrophic and with subungal debris. Skin is of normal turgor and texture. Hyperkeratosis noted to b/l 1st metatarsal. NO ulcerations, scars, verruca or other lesions noted. Ortho: Ankle joint DF is decreased with the knee extended and decreased with knee flexed. No pain or crepitus noted. STJ, MTJ ROM are full and free of pain or crepitus. Muscle strength is 5/5 for dorsiflexors, plantarflexors, inverters, everters. Digital deformities include none. Assessment: (E08.41) Diabetic mononeuropathy associated with diabetes mellitus due to underlying condition (HCC) (primary encounter diagnosis) (B35.1) Onychomycosis (M79.675) Pain in toe of left foot (M79.674) Pain in toe of right foot (L84) Callus Plan: 1. Patient was seen and evaluated. 2. Patient was instructed on the continued importance of diabetic foot care along with proper diet and keeping their blood sugar under control to prevent complications. Instructions given both oral and written. 3. (more content not included)... [facility] 06-04-2023 Note HNO ID: [id number] Author: Griselda Herrera RN Service: ? Author Type: Registered Nurse Type: Progress Notes Filed: 06/04/2023 10:30 AM Note Text: AMB ROOMING INTAKE FLOWSHEET DATA Patient presents with: Left Foot - Established Patient, Diabetic Foot Care Right Foot - Established Patient, Diabetic Foot Care Pt presents for diabetic foot care, has callus present on both feet. Pt ambulates with a walker. He was prescribed Carmol at last visit which he states insurance would not cover. Bs this am was 165. He denies pain. [facility] 12-05-2022 Note HNO ID: [id number] Author: Igor Farooq Service: ? Author Type: Physician Type: Progress Notes Filed: 12/05/2022 12:34 PM Note Text: Initial Office Visit Subjective: This 57 year old male presents to clinic for diabetic foot check. Patient admits to being diabetic for 1/2 years now and states that their blood sugar was 140 mg/dL this AM. Patient -B/T/N in feet at this time. Patient -pain in legs when walking. No other pedal complaints at this time. No change in medications or medical history since last visit. PAIN EVALUATION No data found in the last 1 encounters. Hemoglobin A1C (%) Date Value 06/01/2017 5.7 PCP: Tim Robb MD PAST MEDICAL HISTORY Diagnosis Date Hypertriglyceridemia Impaired fasting blood sugar Kidney stones Kyphosis Morbid obesity (HCC) Current Outpatient Medications Medication Sig metFORMIN (GLUCOPHAGE) 1,000 mg tablet escitalopram oxalate (LEXAPRO) 10 mg tablet sertraline (ZOLOFT) 50 mg tablet Take 1 tablet by mouth once daily. Compression Knee Highs KNEE HIGH COMPRESSION STOCKINGS 30-40 MM. DX: EDEMA and venous stasis No current facility-administered medications for this visit. ALLERGIES No Known Allergies PAST SURGICAL HISTORY Procedure Laterality Date PAST SURGICAL HISTORY OF 2007 lithotripsy TONSILLECTOMY HX FAMILY HISTORY Problem Relation Age of Onset Cancer Mother lung Cancer Father lung Cancer Maternal Grandmother Cancer Maternal Grandfather Cancer Paternal Grandmother Heart Paternal Grandfather Social History Tobacco Use Smoking status: Never Smokeless tobacco: Never Substance Use Topics Alcohol use: No Drug use: No REVIEW OF SYSTEMS GENERAL: Negative for Malaise, significant weight loss, fever RESPIRATORY: Negative for cough, wheezing and shortness of breath CARDIOVASCULAR: Negative for chest pain, leg swelling and palpitations GI: Negative for abdominal discomfort, blood in stools or black stools and change in bowel habits : Negative for dysuria, frequency and incontinence MUSCULOSKELETAL: Negative for joint pain or swelling, back pain, and muscle pain. SKIN: Negative for lesions, rash, and itching. HEMATOLOGY/LYMPHOLOGY Negative for prolonged bleeding, bruising easily, and swollen nodes. ENDOCRINE: Negative for cold or heat intolerance, polyuria, polydipsia and goiter. NEURO: negative The remainder of the review of systems is noncontributory. Objective: Patient presents to clinic ambulating in tennis shoes Constitutional: Pt is a well developed 57 year old male who is alert, oriented, cooperative and in no apparent distress. Eyes: Following during examination. No redness or drainage. Respiratory: RR normal and nonlabored. Even breathing. No evidence of distress. Psychology: Patient is engaged during conversation. Normal affect and mood. Does not appear depressed or anxious. Vasc: DP and PT pulses are palpable right and nonpalpable left. CFT is less than 5 seconds bilateral. Skin temperature is warm to cool proximal to distal bilateral. There is moderate edema or varicosities noted. Hair growth absent. Ruborous changes are noted to b/l feet. Neuro: Protective sensation is intact to the foot and toes when tested with the 5.07 SWM bilateral. Vibratory sensation is intact at the hallux bilateral. No Significant neurological defecits. Derm: Inspection and palpation performed. Nails 1-5 b/l are discolored-yellow, thick, crumbly, dystrophic and with subungal debris. Skin is dry and ruborous Hyperkeratosis noted to b/l heel. NO ulcerations, scars, verruca or other lesions noted. Ortho: Ankle joint DF is decreased with the knee extended and decreased with knee flexed. No pain or crepitus noted. STJ, MTJ ROM are full and free of pain or crepitus. Muscle strength is 5/5 for dorsiflexors, plantarflexors, inverters, everters. Digital deformities include none. Assessment: (E08.41) Diabetic mononeuropathy associated with diabetes mellitus due to underlying condition (HCC) (primary encounter diagnosis) (B35.1) Onychomycosis (M79.675) Pain in toe of left foot (M79.674) Pain in toe of right foot (L84) Callus (R09.89) Diminished pulses in lower extremity Plan: 1. Patient was seen and evaluated. 2. Patient was instructed on the continued importance of diabetic foot care along with proper diet and keeping their blood sugar under control to prevent complications. Instructions given both oral and written. 3. Toenails 1-5 b/l debrided in length and thickness. 4. Discussed concern for underlying vascular impairment. Will chck pvr 5. Callus reduced with dremmel. Offered diabetic shoes. He chose to continue with new balance. Carmol 40 prescribed Igor Farooq DPM [facility] 12-05-2022 Note HNO ID: [id number] Author: Aysha Ojeda LPN Service: ? Author Type: LICENSED NURSE Type: Progress Notes Filed: 12/05/2022 12:34 PM Note Text: AMB ROOMING INTAKE FLOWSHEET DATA Patient presents with: Left Foot - New, Diabetic Foot Care Right Foot - New, Diabetic Foot Care Patient presents to office to establish diabetic foot care. Patient does not complain of pain at this time. Aysha Ojeda LPN [facility] 12-05-2022 Note HNO ID: [id number] Author: RT Gino(R) Service: ? Author Type: Technologist Type: Progress Notes Filed: 12/05/2022 3:21 PM Note Text: Radiology Service Progress Note PATIENT NAME: Jackelin Abarca DATE OF SERVICE: December 05, 2022 TIME: 3:18 PM PATIENT IDENTITY VERIFICATION COMPLETED USING TWO (2) IDENTIFIERS: Name and Date of confirmed by patient verbally. FALL SCREENING: Has the patient had 2 falls in the last year or 1 fall with injury or currently using an Ambulatory Assistive Device (Walker, Cane, Wheelchair, Crutches, etc.)? Yes, Patient High Risk for Falls What interventions were put in place to prevent falls during this visit? Offered Assistance with Transfers/Clothing, Instructed Patient to Remain Seated (Not on Exam Table) Until Exam, and Increased Observations by Caregivers PATIENT GENDER DATA: Male PATIENT RELEVANT IMPLANT DATA REVIEWED: Not Applicable RADIOLOGY DEPARTMENT: General X-ray: Exam(s) Completed: Lower Extremity X-Ray(s): Feet, Bilateral PERIPHERAL IV DATA: Not applicable SIGNED BY: RT Gino(R) December 05, 2022 3:18 PM [facility] 12-05-2022 Instructions Igor Farooq - 12/05/2022 11:59 AM EDT Diabetes Foot Care Instructions When you have diabetes, proper foot care is very important. Poor foot care may lead to amputation of a foot or leg. As a person with diabetes, you are more vulnerable to foot problems, because diabetes can damage your nerves and reduce blood flow to your feet. Here are some diabetes foot care tips to follow: Wash and Dry Your Feet Daily Use mild soaps Use warm water Pat your skin dry; do not rub. Thoroughly dry your feet. After washing, use lotion on your feet to prevent cracking. Do not put lotion between your toes. Examine Your Feet Each Day Check the tops and bottoms of your feet. Have someone else look at your feet if you cannot see them. Check for dry, cracked skin. Look for blisters, cuts, scratches, or other sores. Check for redness, increased warmth, or tenderness when touching any area of your feet. Check for ingrown toenails, corns, and calluses. If you get a blister or sore from your shoes, do not pop it. Apply a bandage and wear a different pair of shoes. Take Care of Your Toenails Cut toenails after bathing, when they are soft. Cut toenails straight across and smooth with a nail file. Avoid cutting into the corners of toes. Do not cut cuticles. If you have neuropathy (or decreased sensation in your feet) a barbed wire machine operator should always cut your toenails. Be Careful When Exercising Walk and exercise in comfortable shoes. Do not exercise when you have open sores on your feet. Protect Your Feet With Shoes and Socks Never go barefoot. Always protect your feet by wearing shoes or hard-soled slippers or footwear. Avoid shoes with high heels and pointed toes. Avoid shoes that expose your toes or heels (such as open-toed shoes or sandals). These types of shoes increase your risk for injury and potential infections. Try on new footwear with the type of socks you usually wear. Do not wear new shoes for more than an hour at a time. Change your socks daily. Look and feel inside your shoes before putting them on to make sure there are no foreign objects or rough areas. Avoid tight socks. Wear natural-fiber socks (cotton, wool, or a cotton-wool blend). Wear special shoes if your health care provider recommends them. Wear shoes/boots that will protect your feet from various weather conditions (cold, moisture, etc.). Make sure your shoes fit properly. If you have neuropathy (nerve damage), you may not notice that your shoes are too tight. Perform the footwear test described below. Footwear Test Use this simple test to see if your shoes fit correctly: Stand on a piece of paper. (Make sure you are standing and not sitting, because your foot changes shape when you stand.) Trace the outline of your foot. Trace the outline of your shoe. Compare the tracings: Is the shoe too narrow? Is your foot crammed into the shoe? The shoe should be at least 1/2 inch longer than your longest toe and as wide as your foot. Proper Shoe Choices The following types of shoes are best for people with diabetes Closed toes and heels Leather uppers without a seam inside At least 1/2 inch extra space at the end of your longest toe Inside of shoe should be soft with no rough areas Outer sole should be made of stiff material Shoes should be at least as wide as your feet Tips for Foot Care in Diabetes Don't wait to treat a minor foot problem if you have diabetes. Follow your health care provider's guidelines and first aid guidelines. Report foot injuries and infections to your health care provider immediately. Check water temperature with your elbow, not your foot. Do not use a heating pad on your feet. Do not cross your legs. Do not self-treat your corns, calluses, or other foot problems. Go to your health care provider or barbed wire machine operator to treat these conditions. documented in this encounter [facility] 12-05-2022 History of Presen t illness Narrative Initial Office Visit Subjective: This 57 year old male presents to clinic for diabetic foot check. Patient admits to being diabetic for 1/2 years now and states that their blood sugar was 140 mg/dL this AM. Patient -B/T/N in feet at this time. Patient -pain in legs when walking. No other pedal complaints at this time. No change in medications or medical history since last visit. PAIN EVALUATION No data found in the last 1 encounters. Hemoglobin A1C (%) Date Value 06/01/2017 5.7 PCP: Tim Robb MD PAST MEDICAL HISTORY Diagnosis Date Hypertriglyceridemia Impaired fasting blood sugar Kidney stones Kyphosis Morbid obesity (HCC) Current Outpatient Medications Medication Sig metFORMIN (GLUCOPHAGE) 1,000 mg tablet escitalopram oxalate (LEXAPRO) 10 mg tablet sertraline (ZOLOFT) 50 mg tablet Take 1 tablet by mouth once daily. Compression Knee Highs KNEE HIGH COMPRESSION STOCKINGS 30-40 MM. DX: EDEMA and venous stasis No current facility-administered medications for this visit. ALLERGIES No Known Allergies PAST SURGICAL HISTORY Procedure Laterality Date PAST SURGICAL HISTORY OF 2007 lithotripsy TONSILLECTOMY HX FAMILY HISTORY Problem Relation Age of Onset Cancer Mother lung Cancer Father lung Cancer Maternal Grandmother Cancer Maternal Grandfather Cancer Paternal Grandmother Heart Paternal Grandfather Social History Tobacco Use Smoking status: Never Smokeless tobacco: Never Substance Use Topics Alcohol use: No Drug use: No REVIEW OF SYSTEMS GENERAL: Negative for Malaise, significant weight loss, fever RESPIRATORY: Negative for cough, wheezing and shortness of breath CARDIOVASCULAR: Negative for chest pain, leg swelling and palpitations GI: Negative for abdominal discomfort, blood in stools or black stools and change in bowel habits : Negative for dysuria, frequency and incontinence MUSCULOSKELETAL: Negative for joint pain or swelling, back pain, and muscle pain. SKIN: Negative for lesions, rash, and itching. HEMATOLOGY/LYMPHOLOGY Negative for prolonged bleeding, bruising easily, and swollen nodes. ENDOCRINE: Negative for cold or heat intolerance, polyuria, polydipsia and goiter. NEURO: negative The remainder of the review of systems is noncontributory. Objective: Patient presents to clinic ambulating in tennis shoes Constitutional: Pt is a well developed 57 year old male who is alert, oriented, cooperative and in no apparent distress. Eyes: Following during examination. No redness or drainage. Respiratory: RR normal and nonlabored. Even breathing. No evidence of distress. Psychology: Patient is engaged during conversation. Normal affect and mood. Does not appear depressed or anxious. Vasc: DP and PT pulses are palpable right and nonpalpable left. CFT is less than 5 seconds bilateral. Skin temperature is warm to cool proximal to distal bilateral. There is moderate edema or varicosities noted. Hair growth absent. Ruborous changes are noted to b/l feet. Neuro: Protective sensation is intact to the foot and toes when tested with the 5.07 SWM bilateral. Vibratory sensation is intact at the hallux bilateral. No Significant neurological defecits. Derm: Inspection and palpation performed. Nails 1-5 b/l are discolored-yellow, thick, crumbly, dystrophic and with subungal debris. Skin is dry and ruborous Hyperkeratosis noted to b/l heel. NO ulcerations, scars, verruca or other lesions noted. Ortho: Ankle joint DF is decreased with the knee extended and decreased with knee flexed. No pain or crepitus noted. STJ, MTJ ROM are full and free of pain or crepitus. Muscle strength is 5/5 for dorsiflexors, plantarflexors, inverters, everters. Digital deformities include none. Assessment: (E08.41) Diabetic mononeuropathy associated with diabetes mellitus due to underlying condition (HCC) (primary encounter diagnosis) (B35.1) Onychomycosis (M79.675) Pain in toe of left foot (M79.674) Pain in toe of right foot (L84) Callus (R09.89) Diminished pulses in lower extremity Plan: 1. Patient was seen and evaluated. 2. Patient was instructed on the continued importance of diabetic foot care along with proper diet and keeping their blood sugar under control to prevent complications. Instructions given both oral and written. 3. Toenails 1-5 b/l debrided in length and thickness. 4. Discussed concern for underlying vascular impairment. Will chck pvr 5. Callus reduced with dremmel. Offered diabetic shoes. He chose to continue with new balance. Carmol 40 prescribed Igor Farooq DPM AMB ROOMING INTAKE FLOWSHEET DATA Patient presents with: Left Foot - New, Diabetic Foot Care Right Foot - New, Diabetic Foot Care Patient presents to office to establish diabetic foot care. Patient does not complain of pain at this time. Aysha Ojeda LPN documented in this encounter [facility] 12-05-2022 History of Presen t illness Narrative Radiology Service Progress Note PATIENT NAME: Jackelin Abarca DATE OF SERVICE: December 05, 2022 TIME: 3:18 PM PATIENT IDENTITY VERIFICATION COMPLETED USING TWO (2) IDENTIFIERS: Name and Date of confirmed by patient verbally. FALL SCREENING: Has the patient had 2 falls in the last year or 1 fall with injury or currently using an Ambulatory Assistive Device (Walker, Cane, Wheelchair, Crutches, etc.)? Yes, Patient High Risk for Falls What interventions were put in place to prevent falls during this visit? Offered Assistance with Transfers/Clothing, Instructed Patient to Remain Seated (Not on Exam Table) Until Exam, and Increased Observations by Caregivers PATIENT GENDER DATA: Male PATIENT RELEVANT IMPLANT DATA REVIEWED: Not Applicable RADIOLOGY DEPARTMENT: General X-ray: Exam(s) Completed: Lower Extremity X-Ray(s): Feet, Bilateral PERIPHERAL IV DATA: Not applicable SIGNED BY: RT Gino(R) December 05, 2022 3:18 PM documented in this encounter [facility] Generalized pain [facility] Outpatient Procedure (Routine) - Authorized Specialty Diagnoses / Procedures Referred By Bell leyva Referred To [facility] Diagnoses Diabetic mononeuropathy associated with diabetes mellitus due to underlying condition (HCC) Diminished pulses in lower extremity Procedures PVR ANK PRESS [facility] NON-INVAS PHYSIOLOGIC STD EXTREMITY ART 2 LEVEL Igor Farooq [address] [place] [address] [facility] [address] [place] [address] Referral ID Status Reason Start Date Expiration Date Visits Requested Visits Authorized [id number] Authorized Auto-Generat ed Referral 12/05/2022 12/05/2023 1 1 [facility] for referral (narrative)* Diagnostic Procedure Only (Routine) - Closed Specialty Diagnoses / Procedures Referred By Bell leyva Referred To Contact XR IMAGING Diagnoses Pain Procedures XR FOOT GENERAL 3V AP/LAT/OBL BILATERAL RADEX FOOT COMPLETE MINIMUM 3 VIEWS Igor Farooq [address] [place] [address] [place] [id number] Referral ID Status Reason Start Date Expiration Date V isits Requested Visits Authorized [id number] Closed Auto-Generate d Referral 11/05/2022 12/05/2023 1 1 [facility] for visit Narrative* Diagnostic Procedure Only (Routine) - Closed Specialty Diagnoses / Procedures Referred By Contac t Referred To Contact XR IMAGING Diagnoses Pain Procedures XR FOOT GENERAL 3V AP/LAT/OBL BILATERAL RADEX FOOT COMPLETE MINIMUM [address] [address] [place] [id number] Referral ID Status Reason Start Date Expiration Date V isits Requested Visits Authorized [id number] Closed Auto-Generate d Referral 11/05/2022 12/05/2023 1 1 [facility] Summary Purpose Family History No Family History Records FoundNo Family History Records Found Advance Directives No Advanced Directives Records FoundNo Advanced Directives Records Found Additional Source Comments (unrecognized sect ion and content) No Status Records FoundNo Status Records Found INFORMATION SOURCE (unrecogn ized section and content) DATE CREATED AUTHOR AUTHOR'S ORGANIZ ATION 06/06/2023 [facility] Source Comments (unrecognize d section and content) In the event this informatio n is protected by the Federal Confidentiality of Alcohol and Drug Abuse Patient Records regulations: The Federal rules restrict any use of the information to criminally investigate or prosecute any alcohol or drug abuse patient.[facility] the event this information is protected by the Federal Confidentiality of Alcohol and Drug Abuse Patient Records regulations: The Federal rules restrict any use of the information to criminally investigate or prosecute any alcohol or drug abuse patient.[facility] Reason for Visit (unrecogniz ed section and content) Care Teams (unrecognized sec tion and content) 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 This clinical summary was aggregated from multiple sources. Caution should be exercised in using it in the provision of clinical care. This summary normalizes information from multiple sources, and as a consequence, information in this document may materially change the coding, format and clinical context of patient data. In addition, data may be omitted in some cases. CLINICAL DECISIONS SHOULD BE BASED ON THE PRIMARY CLINICAL RECORDS. [employer] provides no warranty or guarantee of the accuracy or completeness of information in this document.
[2023-07-03 15:39] LABS: Absolute Lymphocyte Count 2.47 X10^3/uL (0.83-4.51); Absolute Neutrophil Count 6.5 X10^3/uL (2.0-7.7); Basophil# 0.05 X10^3/uL; Basophil% 0.5 % (0-1); Eosinophil# 0.29 X10^3/uL; Eosinophils% 2.9 % (0-5); Hematocrit 43.5 % (40-54); Hemoglobin 14.3 g/dL (13.0-16.5); Lymphocyte # 2.47 X10^3/ul (0.83-4.51); Lymphocyte % 24.5 % (19-41); Mean Corp Hgb Conc 32.9 g/dL (32-36); Mean Corpuscular Volume 97.3 fL (80-94); Mean Platelet Vol. 10.3 fl (6.2-12.0); Monocyte# 0.74 X10^3/uL; Monocyte% 7.3 % (0-10); NRBC Flagged by Analyzer 0 % (0-5); Neutrophil % 64.4 % (47-70); Platelet Count 217 K/mm3 (150-450); RBC Distribution Width SD 49.9 fl (35.1-43.9); Red Blood Count 4.47 M/mm3 (4.6-6.2); White Blood Count 10.1 K/mm3 (4.4-11.0)
[2023-07-03 16:31] LABS: ALB/GLOB Ratio 0.6 RATIO (0.9-2.4); AST(SGOT) 24 U/L (15-37); Alanine Aminotransfer ALT/SGPT 26 U/L (16-61); Albumin, Serum 3.1 g/dL (3.2-5.0); Alkaline Phosphatase 93 U/L (45-117); Anion Gap 5 (5-15); BUN 17 mg/dL (7-18); BUN/Creat Ratio 16.5 RATIO (10-20); Calcium,Total 8.7 mg/dL (8.5-10.1); Chloride 108 mmol/L (98-107); Cholesterol 92 mg/dL (200); Creatinine, Serum 1.03 mg/dL (0.70-1.30); EST Glomerular Filtration Rate 79 mL/min (>60); Est Glom Filt Rate - Afr Amer 95 mL/min (>60); Globulin 5.1 g/dL (2.2-4.2); Glucose 148 mg/dL (74-106); High Density Lipoprotein 33 mg/dL; Protein, Total 8.2 g/dL (6.4-8.2); Sodium Level 139 mmol/L (136-145); Triglycerides 94 mg/dL; Very Low Density Lipoprotein 19 mg/dL (5-40)
== END | disposition home or self-care (01) ==
LOC: BIMLAB 12:10
PROVIDERS: PCP Internal Medicine; Visit Provider Internal Medicine
DX: E11.9 Type 2 diabetes mellitus without complications (principal); F41.9 Anxiety disorder, unspecified
CPT/HCPCS: 36415; 80053; 80061; 85025

== ENCOUNTER → 2023-10-09 | Outpatient (CLI) | payer MEDICARE, MEDICAID, SELFPAY ==
[2023-10-09 16:25] LABS: Microalbumin,Random Urine 49.6 mg/L (NO RANGE EST.); Microalbumin:Creatinine Ratio 27.9 mg/g CRE (<30 mg/g CRE)
== END | disposition home or self-care (01) ==
LOC: LABSPEC 12:15
PROVIDERS: PCP Internal Medicine; Referring Provider Internal Medicine; Visit Provider Internal Medicine
DX: E11.9 Type 2 diabetes mellitus without complications (principal)
CPT/HCPCS: 82043; 82570

== ENCOUNTER 2023-10-21 13:00 | Outpatient (RCR) | payer MEDICARE, MEDICAID, SELFPAY ==
--- NOTE | 2023-07-11 11:20 | HP.PTEVAL_ITS ---
Patient's Visit Information Visit Information Visit Information: JACKELIN ZENDEJAS is a 57 year old M referred to Physical Therapy by Dr. Queenie Arciniega MD with a diagnosis of Difficulty in walking ,malaise. Date of Evaluation: 07/11/23 Physical Therapist: Og Soria, PT, Cert MDT, OCS Visit Plan Frequency: 2x /Week Duration: 4 Weeks Plan: PT INTERVETIONS PROGRESSIVE BALANCE TRAINING ,STRENGTHENING BLE ,ENDURANCE PROGRAM AND FUNCTIONAL STRENGTHENING Subjective Subjective: This 57 y/o male presents to physical therapy with gait difficulty . Patient seen DR and recommended PT . Patient has been in PT in past. Patient has no h/o falls. Patient denies pain and paresthesia/tingling-. Patient uses lift chair for sleeping .and transfers. Patient lives alone has assist with laundry and nurse x2 /week . Patient has health development coach . Patient lives apartment 3 steps with railing. Patient has tube/shower set up . Patient uses [facility] community and no device in home. Denies dizziness . Patient has seen wound clinic last year left lower leg. 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 Patient condition affects QOL and function/walking. Patient was in NH 4 years ago for sepsis. Patient goal to improve function and /endurance/balance SOCAIL: Single VOCATION: Retired disability Objective Objective: POSTURE: forward head ,mod protruded head hip/knees flexed NEURO: denies paresthesia/tingling GAIT: ambulates with reciprocal pattern hips/knees flexed forward head no device( walked in dep with fww) BALANCE: fair + MMT: (peak force) quads right 27.2 left 26.3,hamstrings right 28.8 ,left 28.7 , hip flexion 27.2 right ,left 28.0 FLEXABLITY: hamstrings tight Balance/Special Test Scores Functional Gait Assessment Score: 17 % Disability: 43.3400 CATSIB Score (Max score 120 seconds): 70 Lower Extremity Functional Score: 25 TUG Test Time Seconds: 13.8 30 Second Chair Rise Test Seconds: 12 Goals Goal 1:: Patient to be I with HEP Goal Time Frame: 4-6 Weeks Goal 2:: Patient to improve 30sec sit-stand by 3-5 rep to improve function Goal Time Frame: 4-6 Weeks Goal 3:: Patient to improve LFES score by 5 points to improve function/QOL Goal Time Frame: 4-6 Weeks Goal 4:: Patient to improve dynamic gait assessment by 5 points to improve balance and gait. Goal Time Frame: 4-6 Weeks Goal 5:: Patient to improve peak force quads/hams/hip by 5-10 # to improve gait Goal Time Frame: 4-6 Weeks Goal 6:: Patient to improve TUG by 3-5 seconds to improve safe gait Goal Time Frame: 4-6 Weeks Rehabilitation Potential Physical Therapy Diagnosis: This patient has decrease with endurance with balance deficits thus benefit from skilled PT Rehabilitation Potential: Good Anticipated Interventions Patient/Client Instruction: Educate patient on: Condition and Plan of Care For the Purpose of:: To improve muscle performance and motor function, To improve ability to perform ADL's, To increase flexibility/ROM, To improve endurance, To improve balance and To improve tolerance to ADL's Therapeutic Exercise to Include: Strength training, Endurance training, Balance training, Flexibilty training and Gait and locomotor training Comment: BLE For the Purpose of:: To increase ROM, To improve muscle performance and motor function, To improve ability to perform ADL's, To increase tolerance to activity/condition/position, To improve ability of physical actions for home/community/work/leisure, To improve gait and locomotor functions, To increase flexibility/ROM and To improve tolerance to ADL's Text: Thank you for the opportunity to evaluate your patient. For Medicare and Medicare HMO plans, please review the plan of care and approve it. It will need to be FAXED BACK to us at [phone] for Medicare purposes. For Medicare only, by signing this I certify the plan of care. Please let me know if there are questions or concerns regarding this plan of care. Physician Signature: Date:
--- NOTE | 2023-09-02 15:26 | HP.PTREVAL_ITS ---
Re-Evaluation Intro: Dr. Queenie Arciniega MD, It has been my pleasure to treat JACKELIN ZENDEJAS over the last 9 visits for Difficulty in walking ,malaise. Please see the progress note below for an update on the physical therapy plan of care! Subjective Subjective: Patient reporting getting ,better no falls wounds are improving Patient has new lift chair Objective Objective/Function: * Patient cont to benefit from skilled PT to improve and strength and has shown decline getting up from regular height chair* POSTURE: forward head ,mod protruded head hip/knees flexed NEURO: denies paresthesia/tingling GAIT: ambulates with reciprocal pattern hips/knees flexed forward head no device( walked in dep with fww) BALANCE: good- MMT: (peak force) quads right 36.2 left 22.3,hamstrings right 29.8 ,left 29.7 , hip flexion 22.2 right ,left 28.0 FLEXABLITY: hamstrings mod tight TRANFERS: MAX ASSIST from regular chair has lift chair ,sits in elEvated mat Plan Plan Plan: PT INTERVETIONS PROGRESSIVE BALANCE TRAINING ,STRENGTHENING BLE ,ENDURANCE PROGRAM AND FUNCTIONAL STRENGTHENING Balance/Gait/Functional tests Balance/Special Test Scores Functional Gait Assessment Score: 15 % Disability: 50.0000 CATSIB Score (Max score 120 seconds): 70 Lower Extremity Functional Score: 25 TUG Test Time Seconds: 13.3 Tug Test: <20 sec.=mostly independent 30 Second Chair Rise Test Seconds: 12 6 Minute Walk Test: 345.64 Goals Goals Goal 1:: Patient to be I with HEP Goal Time Frame: 4-6 Weeks Goal 2:: Patient to improve ability to get up from regular ellie Goal Time Frame: 4-6 Weeks Goal 3:: Patient to improve LFES score by 5 points to improve function/QOL Goal Time Frame: 4-6 Weeks Goal Progress: Progressing Goal 4:: Patient to improve dynamic gait assessment by 5 points to improve balance and gait. Goal Time Frame: 4-6 Weeks Goal Progress: Progressing Goal 5:: Patient to improve peak force quads/hams/hip by 5-10 # to improve gait Goal Time Frame: 4-6 Weeks Goal Progress: Progressing Goal 6:: Patient to improve TUG by 3-5 seconds to improve safe gait Goal Time Frame: 4-6 Weeks Anticipated Interventions Anticipated Interventions Patient/Client Instruction: Educate patient on: Condition and Plan of Care For the Purpose of:: To improve muscle performance and motor function, To improve ability to perform ADL's, To increase flexibility/ROM, To improve endurance, To improve balance and To improve tolerance to ADL's Therapeutic Exercise to Include: Strength training, Endurance training, Balance training, Flexibilty training and Gait and locomotor training Comment: BLE For the Purpose of:: To increase ROM, To improve muscle performance and motor function, To improve ability to perform ADL's, To increase tolerance to activity/condition/position, To improve ability of physical actions for home/community/work/leisure, To improve gait and locomotor functions, To increase flexibility/ROM and To improve tolerance to ADL's Re-Evaluation Ending Re-evaluation ending: Please do not hesitate to contact me at [phone] by phone or Fax: if you have questions or concerns regarding this new plan of care! Sincerely, Og Soria, PT, Cert MDT, OCS
--- NOTE | 2023-10-21 13:31 | HP.PTDCSUM ---
Discharge Summary D/C summary: It has been my pleasure to treat JACKELIN ZENDEJAS referred by Dr. Queenie Arciniega MD, with the diagnosis of Difficulty in walking ,malaise for a total of 18 visit(s). Discharge Date: 10/21/23 Please see the following information for a summary of their discharge status. Subjective Subjective: Patient is doing much better .. READY FOR D/C Overall Improvement % Improvement: 85 Objective Objective/Function: POSTURE: forward head ,mod protruded head hip/knees flexed NEURO: denies paresthesia/tingling GAIT: ambulates with reciprocal pattern hips/knees flexed forward head no device( walked in dep with fww) BALANCE: good- MMT: (peak force) quads right 52.2 left 56.7hamstrings right 45.2,left 46.97, hip flexion 40,9 right ,left 44.8 FLEXABLITY: hamstrings mod tight TRANFERS: Independant with elevated cAHOR Goals Goal 1:: Patient to be I with HEP Goal Progress: Goal Met Goal 2:: Patient to improve ability to get up from regular ellie Goal Progress: Goal Met Goal 3:: Patient to improve LFES score by 5 points to improve function/QOL Goal Progress: Goal Met Goal 4:: Patient to improve dynamic gait assessment by 5 points to improve balance and gait. Goal Progress: Goal Met Goal 5:: Patient to improve peak force quads/hams/hip by 5-10 # to improve gait Goal Progress: Progressing Goal 6:: Patient to improve TUG by 3-5 seconds to improve safe gait Goal Progress: Goal Met Plan Plan: D/C D/C Information Discharge Comments: HEP d/c sentence: If there are questions or concerns regarding this patient's physical therapy, please feel free to call me at [phone]. Thank you for the referral of this patient. Sincerely, Og Soria, PT, Cert MDT, OCS Balance/Gait/Functional tests Balance/Special Test Scores Functional Gait Assessment Score: 15 % Disability: 50.0000 CATSIB Score (Max score 120 seconds): 70 Lower Extremity Functional Score: 55 TUG Test Time Seconds: 11.8 Tug Test: <20 sec.=mostly independent 30 Second Chair Rise Test Seconds: 12 6 Minute Walk Test: 345.64 Improvement % Improvement: 85
== END 2023-10-21 19:00 | disposition home or self-care (01) ==
LOC: PT 13:00
PROVIDERS: PCP Internal Medicine; Referring Provider Internal Medicine; Visit Provider Internal Medicine
DX: R53.81 Other malaise (principal); R26.2 Difficulty in walking, not elsewhere classified
CPT/HCPCS: 97110; 97162; 97530

== ENCOUNTER → 2024-08-20 | Outpatient (CLI) | payer MEDICARE, MEDICAID, SELFPAY ==
[2024-08-20 15:01] LABS: Absolute Lymphocyte Count 1.58 X10^3/uL (0.83-4.51); Absolute Neutrophil Count 5.4 X10^3/uL (2.0-7.7); Basophil# 0.04 X10^3/uL; Basophil% 0.5 % (0-1); Eosinophil# 0.28 X10^3/uL; Eosinophils% 3.6 % (0-5); Hematocrit 44.9 % (40-54); Hemoglobin 14.9 g/dL (13.0-16.5); Lymphocyte # 1.58 X10^3/ul (0.83-4.51); Lymphocyte % 20.1 % (19-41); Mean Corp Hgb Conc 33.2 g/dL (32-36); Mean Corpuscular Hgb 31.8 pg (27.0-32.0); Mean Corpuscular Volume 95.7 fL (80-94); Mean Platelet Vol. 9.8 fl (6.2-12.0); Monocyte# 0.52 X10^3/uL; Monocyte% 6.6 % (0-10); NRBC Flagged by Analyzer 0 % (0-5); Neutrophil # 5.41 X10^3/uL (2.7-7.7); Neutrophil % 68.8 % (47-70); Platelet Count 263 K/mm3 (150-450); RBC Distribution Width CV 13.7 % (11.6-14.6); RBC Distribution Width SD 48.1 fl (35.1-43.9); Red Blood Count 4.69 M/mm3 (4.6-6.2); White Blood Count 7.9 K/mm3 (4.4-11.0)
[2024-08-20 15:54] LABS: ALB/GLOB Ratio 0.8 RATIO (0.9-2.4); AST(SGOT) 26 U/L (<=37); Alanine Aminotransfer ALT/SGPT 16 U/L (<=46); Albumin, Serum 3.9 g/dL (3.5-5.0); Alkaline Phosphatase 105 U/L (40-129); Anion Gap 11 (5-15); BUN 10 mg/dL (4-19); BUN/Creat Ratio 9.9 RATIO (10-20); Calcium 9.7 mg/dL (7.6-11.0); Carbon Dioxide 24.1 mmol/L (22.0-29.0); Chloride 100 mmol/L (96-108); EST Glomerular Filtration Rate 83 (>60); Globulin 4.7 g/dL (2.2-4.2); Glucose 94 mg/dL (70-99); Protein, Total 8.5 g/dL (5.9-8.4); Sodium Level 135 mmol/L (133-145); Total Bilirubin 0.41 mg/dL (0.00-1.30)
[2024-08-20 16:13] LABS: Microalbumin,Random Urine < 12.0 mg/L (NO RANGE EST.)
[2024-08-20 19:09] LABS: Cholesterol 96 mg/dL (<=200); High Density Lipoprotein 34 mg/dL; Low Density Lipoprotein Calc. 47 mg/dL; Triglycerides 73 mg/dL; Very Low Density Lipoprotein 15 mg/dL (5-40)
== END | disposition home or self-care (01) ==
LOC: BIMLAB 11:10
PROVIDERS: PCP Internal Medicine; Referring Provider Internal Medicine; Visit Provider Internal Medicine
DX: E11.9 Type 2 diabetes mellitus without complications (principal)
CPT/HCPCS: 36415; 80053; 80061; 82043; 82570; 85025